=== PATIENT | female | born 1940 | race Caucasian/White ===

== ENCOUNTER → 2018-04-03 | Outpatient (CLI) | payer OTHER | LOC: HYPER 03-29 16:07 | DX: E11.621 Type 2 diabetes mellitus with foot ulcer (principal); I83.014 Varicose veins of right lower extremity with ulcer of heel and midfoot; L97.412 Non-pressure chronic ulcer of right heel and midfoot with fat layer exposed; L84 Corns and callosities; E11.36 Type 2 diabetes mellitus with diabetic cataract; E11.69 Type 2 diabetes mellitus with other specified complication; M86.671 Other chronic osteomyelitis, right ankle and foot; E11.22 Type 2 diabetes mellitus with diabetic chronic kidney disease; I12.9 Hypertensive chronic kidney disease with stage 1 through stage 4 chronic kidney disease, or unspecified chronic kidney disease; N18.3 Chronic kidney disease, stage 3 (moderate); E78.5 Hyperlipidemia, unspecified; D50.9 Iron deficiency anemia, unspecified; D49.9 Neoplasm of unspecified behavior of unspecified site; I87.2 Venous insufficiency (chronic) (peripheral); K76.0 Fatty (change of) liver, not elsewhere classified; M15.9 Polyosteoarthritis, unspecified; M47.896 Other spondylosis, lumbar region; M72.2 Plantar fascial fibromatosis; M41.20 Other idiopathic scoliosis, site unspecified; F03.90 Unspecified dementia, unspecified severity, without behavioral disturbance, psychotic disturbance, mood disturbance, and anxiety; F41.9 Anxiety disorder, unspecified; F32.9 Major depressive disorder, single episode, unspecified; Z79.84 Long term (current) use of oral hypoglycemic drugs; Z86.73 Personal history of transient ischemic attack (TIA), and cerebral infarction without residual deficits; Z90.710 Acquired absence of both cervix and uterus; Z90.49 Acquired absence of other specified parts of digestive tract ==

== ENCOUNTER → 2018-04-21 | Outpatient (CLI) | payer OTHER | LOC: HYPER 08:28 | DX: E11.621 Type 2 diabetes mellitus with foot ulcer (principal); I83.014 Varicose veins of right lower extremity with ulcer of heel and midfoot; L97.412 Non-pressure chronic ulcer of right heel and midfoot with fat layer exposed; L84 Corns and callosities; I89.0 Lymphedema, not elsewhere classified; E11.69 Type 2 diabetes mellitus with other specified complication; M86.671 Other chronic osteomyelitis, right ankle and foot; E11.36 Type 2 diabetes mellitus with diabetic cataract; E11.22 Type 2 diabetes mellitus with diabetic chronic kidney disease; I12.9 Hypertensive chronic kidney disease with stage 1 through stage 4 chronic kidney disease, or unspecified chronic kidney disease; N18.3 Chronic kidney disease, stage 3 (moderate); E78.5 Hyperlipidemia, unspecified; D50.9 Iron deficiency anemia, unspecified; D49.9 Neoplasm of unspecified behavior of unspecified site; K76.0 Fatty (change of) liver, not elsewhere classified; M72.2 Plantar fascial fibromatosis; M15.9 Polyosteoarthritis, unspecified; M41.20 Other idiopathic scoliosis, site unspecified; M47.896 Other spondylosis, lumbar region; F03.90 Unspecified dementia, unspecified severity, without behavioral disturbance, psychotic disturbance, mood disturbance, and anxiety; F32.9 Major depressive disorder, single episode, unspecified; F41.9 Anxiety disorder, unspecified; Z86.73 Personal history of transient ischemic attack (TIA), and cerebral infarction without residual deficits; Z79.84 Long term (current) use of oral hypoglycemic drugs ==

== ENCOUNTER → 2018-04-28 | Outpatient (CLI) | payer OTHER ==
[~2018-04-28] MED LIST: ASPIRIN81 M2 PO; BENICAR40 MG PO; BYSTOLIC20 MG PO; CRESTOR10 MG PO; HYDROCODON-ACE1 EAC8 PO; METFORMIN HCL500 MG PO; XANAX 0.5 MG0.5 MG PO
--- NOTE | ~2018-04-28 | HC ---
[place] [address] CONSULTATION Name: RUT GUTHRIE Room #: REG JANICE Benedict#: [id number] Admission: 04/28/18 ������������������ Attend Phys: Abdifatah Hanson MD Discharge: ������������������ Date of : 40 Report #: [id number] THIS REPORT FOR: //name// CC: Xavier Ramirez DATE OF SERVICE: 04/28/2018 INFECTIOUS DISEASES CONSULTATION REASON FOR CONSULTATION: I was asked to evaluate concerning right heel wound infection, possible osteomyelitis. HISTORY OF PRESENT ILLNESS: The patient is a 78-year-old, with underlying history of venous stasis disease, who has had recurrent cellulitis to her lower extremities, developed a heel wound approximately 6 months ago. No specific trauma identified. The patient and her daughter were interviewed and they both feel that it was most likely related to some shoe wear. She has been followed up in the wound care clinic at [facility]. She has had imaging studies including bone scan, CT scan, I do not have those results. The patient and daughter were unaware of specific osteomyelitis diagnosis. She had been on a month of ceftriaxone most recently from 03/15/2018 to 04/21/2018. While on this treatment, she has noticed no significant improvement in her wound. She presents now for further evaluation. Antibiotics were discontinued in anticipation of bone biopsy. She has had no worsening of her skin or soft tissues. There has been small to moderate amount of drainage from her wound. No fever, chills or sweats. Moderate amount of pain over the plantar heel area. She has diabetes. She is a nonsmoker. She is on diuretics. She has been using compression stockings, but has not been elevating much. She has not been very good at offloading the heel. No history of peripheral neuropathy and she reports that her arterial studies have been unremarkable. ALLERGIES: CARDIZEM, AMLODIPINE, ADHESIVE TAPE. MEDICATIONS: Included alprazolam, metformin, Crestor, Bystolic, verapamil, Lasix, magnesium oxide, hydrocodone, aspirin. PAST MEDICAL HISTORY: Obesity, venous stasis disease, diabetes. Denies any cardiovascular issues other than hypertension. FAMILY HISTORY: Noncontributory. SOCIAL HISTORY: Nonsmoker, no significant alcohol intake. REVIEW OF SYSTEMS: Denies any headache, neurologic issues, psychiatric issues. [address] [address] CONSULTATION Name: RUT GUTHRIE Room #: [facility].#: [id number] Admission: 04/28/18 ������������������ Attend Phys: Abdifatah Hanson MD Discharge: ������������������ Date of : 40 Report #: [id number] She has had no hematologic or lymph issues. Denies any pulmonary, GI or complaints. A full 10-point review was negative other than what is described above. PHYSICAL EXAMINATION: VITAL SIGNS: She is afebrile, hemodynamically stable. GENERAL: She is alert, cooperative and pleasant. She was ambulatory. Obese. SKIN: With venous stasis dermatitis changes to both lower extremities below the knee. No ulcerations. She had an ulcer over the plantar aspect of her right heel with granulation tissue at the base. Could not palpate any bone. There was no surrounding cellulitis. The area was tender to palpation. No other rashes or decubiti noted. No palpable adenopathy. HEENT: Eyes without scleral icterus or conjunctivitis. Mouth with partial dentures. No oral mucosal lesions. NECK: Supple with no thyromegaly or mass. LUNGS: Clear to auscultation. HEART: Regular without murmur, gallop or rub. ABDOMEN: Soft and nontender with no hepatosplenomegaly or mass. GENITORECTAL: Examination not performed. NEUROLOGIC: Cranial nerves were intact. Strength in her upper and lower extremities was normal. Sensation in upper and lower extremities was normal. Mood was normal. LABORATORY STUDIES: Outpatient bone scan and CT scan were not available. Outpatient x-ray was not available. From 04/21/2018, creatinine was 0.5, alkaline phosphatase 234, AST 74, ALT 25. Hemoglobin A1c was 5.6. Glucose 133. Sedimentation rate 31. C-reactive protein 7.4. Hemoglobin 10.5, WBC 4.6, platelet count was 230,000. IMPRESSION: A 78-year-old with chronic venous stasis disease, obesity with a nonhealing wound to her right plantar heel. I am concerned about a component of osteomyelitis given the duration of this wound. She has not responded to a month of antibiotic therapy. I would suspect that there also may be some issues with ongoing pressure to the heel. Obesity, diabetes, hypertension, chronic venous stasis disease. RECOMMENDATIONS: We will maintain off antibiotic therapy at this point. The patient has been seen by podiatry who anticipates doing a bone biopsy hopefully next week. I would like the patient off antibiotics for approximately 2 weeks before her biopsy. I discussed the case with the patient and her daughter that if there is any change in her condition with increased erythema to the leg or increased pain that she would contact me for further instruction. In addition, I would like to increase her edema control with leg elevation and compression. She will continue with topical therapies for her venous stasis disease. She [address] [address] CONSULTATION Name: RUT GUTHRIE Room #: REG JANICE Cordero.#: [id number] Admission: 04/28/18 ������������������ Attend Phys: Abdifatah Hanson MD Discharge: ������������������ Date of : 40 Report #: [id number] will continue with her localized wound care. I would like the patient to offload the right heel exclusively. We will reevaluate in 1 week. ��������������������������������������������� ���������������������������������������� By: ��������������������������������������������� 1253 0437 Xavier Grant MD /nnamdi
--- NOTE | 2018-04-28 12:00 | NUR ---
PT IN THE INFUSION CLINIC EARLIER TODAY FOR 1ST CONSULTATIVE VISIT WITH DR. BAKER. HOWEVER, D/T [facility], DR. BAKER WAS DELAYED SO PT TAKEN TO THE WOUND CLINIC FOR HER VISIT WITH DR. FORMAN AND DR. BAKRE DID GO TO SEE HER WHILE SHE WAS WITH THEM. SHE HAS BEEN SCHEDULED TO RETURN AGAIN 05/08 FOR VISIT HERE WITH DR. BAKER THEN WITH DR. FORMAN TO FOLLOW.
== END ==
LOC: HYPER 02:45
DX: E11.621 Type 2 diabetes mellitus with foot ulcer (principal); I83.014 Varicose veins of right lower extremity with ulcer of heel and midfoot; L97.412 Non-pressure chronic ulcer of right heel and midfoot with fat layer exposed; I89.0 Lymphedema, not elsewhere classified; L84 Corns and callosities; E11.69 Type 2 diabetes mellitus with other specified complication; M86.671 Other chronic osteomyelitis, right ankle and foot; E11.22 Type 2 diabetes mellitus with diabetic chronic kidney disease; I12.9 Hypertensive chronic kidney disease with stage 1 through stage 4 chronic kidney disease, or unspecified chronic kidney disease; N18.3 Chronic kidney disease, stage 3 (moderate); E11.36 Type 2 diabetes mellitus with diabetic cataract; E78.5 Hyperlipidemia, unspecified; D50.9 Iron deficiency anemia, unspecified; D49.9 Neoplasm of unspecified behavior of unspecified site; K76.0 Fatty (change of) liver, not elsewhere classified; M15.9 Polyosteoarthritis, unspecified; M72.2 Plantar fascial fibromatosis; M41.20 Other idiopathic scoliosis, site unspecified; M47.896 Other spondylosis, lumbar region; F03.90 Unspecified dementia, unspecified severity, without behavioral disturbance, psychotic disturbance, mood disturbance, and anxiety; F32.9 Major depressive disorder, single episode, unspecified; F41.9 Anxiety disorder, unspecified; Z86.73 Personal history of transient ischemic attack (TIA), and cerebral infarction without residual deficits; Z79.84 Long term (current) use of oral hypoglycemic drugs
CPT/HCPCS: 91016

== ENCOUNTER → 2018-05-08 | Outpatient (CLI) | payer OTHER | LOC: HYPER 06:50 | DX: E11.621 Type 2 diabetes mellitus with foot ulcer (principal); I83.014 Varicose veins of right lower extremity with ulcer of heel and midfoot; L97.412 Non-pressure chronic ulcer of right heel and midfoot with fat layer exposed; E11.69 Type 2 diabetes mellitus with other specified complication; M86.671 Other chronic osteomyelitis, right ankle and foot; E11.22 Type 2 diabetes mellitus with diabetic chronic kidney disease; I12.9 Hypertensive chronic kidney disease with stage 1 through stage 4 chronic kidney disease, or unspecified chronic kidney disease; N18.3 Chronic kidney disease, stage 3 (moderate); E11.36 Type 2 diabetes mellitus with diabetic cataract; E78.5 Hyperlipidemia, unspecified; D50.9 Iron deficiency anemia, unspecified; D49.9 Neoplasm of unspecified behavior of unspecified site; I89.0 Lymphedema, not elsewhere classified; I87.2 Venous insufficiency (chronic) (peripheral); K76.0 Fatty (change of) liver, not elsewhere classified; M72.2 Plantar fascial fibromatosis; M15.9 Polyosteoarthritis, unspecified; M41.20 Other idiopathic scoliosis, site unspecified; M47.896 Other spondylosis, lumbar region; F03.90 Unspecified dementia, unspecified severity, without behavioral disturbance, psychotic disturbance, mood disturbance, and anxiety; F32.9 Major depressive disorder, single episode, unspecified; F41.9 Anxiety disorder, unspecified; Z86.73 Personal history of transient ischemic attack (TIA), and cerebral infarction without residual deficits; Z79.84 Long term (current) use of oral hypoglycemic drugs ==

== ENCOUNTER → 2018-05-08 | Outpatient (CLI) | payer OTHER ==
--- NOTE | ~2018-05-08 | HC ---
[facility] [place] [address] CONSULTATION Name: RUT GUTHRIE Room #: REG [facility]#: [id number] Admission: 05/08/18 ������������������ Attend Phys: Xavier Grant MD Discharge: ������������������ Date of : 40 Report #: [id number] THIS REPORT FOR: //name// CC: Xavier Ramirez DATE OF SERVICE: 05/08/2018 REASON FOR CONSULTATION: Evaluate right heel wound and possible osteomyelitis. HISTORY OF PRESENT ILLNESS: Off antibiotics now for 1 week. No increased drainage. No increased pain or swelling. The patient has been offloading her foot as much as possible. She has been elevating. No fever, chills or sweats. REVIEW OF SYSTEMS: No cardiopulmonary, GI or issues. PHYSICAL EXAMINATION: VITAL SIGNS: Afebrile and hemodynamically stable. GENERAL: Alert and cooperative. Obese. EXTREMITIES: Left upper extremity PICC without drainage or erythema. Right lower extremity lymphedema persists below the knee. She has erythema and some desquamation of skin. 3+ woody edema. Moderate erythema. The right foot is without cellulitis. She has a small wound, which tunnels to the plantar left heel. Small amount of serous drainage. Moderate tenderness. No fluctuance. Pulses palpable in the foot. IMPRESSION: 1. Right plantar heel nonhealing wound with concern for underlying osteomyelitis. 2. Chronic lymphedema. 3. Obesity. 4. Diabetes. RECOMMENDATION: 1. We will continue off antibiotics at this point pending biopsy hopefully this coming week. 2. Continue offloading. 3. Continue leg elevation and compression. 4. Add topical triamcinolone b.i.d. to help decrease the venous stasis dermatitis. 5. Follow up in 1 week. 6. Obtain CBC, CMP, sedimentation rate today and we will follow. The patient [facility] [address] [place] [address] CONSULTATION Name: RUT GUTHRIE Room #: REG JANICE Benedict#: [id number] Admission: 05/08/18 ������������������ Attend Phys: Xavier Grant MD Discharge: ������������������ Date of : 40 Report #: [id number] will contact me if any worsening in her condition as we continue the workup. 7. The patient will be referred to lymphedema clinic. ��������������������������������������������� ���������������������������������������� By: ��������������������������������������������� 1008 [id number] Xavier Grant MD /nt
[2018-05-08 13:43] LABS: HEMATOCRIT 33.2 % (37.0-47.0); HEMOGLOBIN 10.8 gm/dL (12.0-15.0); MCH 27.5 pg (26.0-34.0); MCHC 32.6 g/dL (28.0-37.0); MCV 84.5 fL (80.0-100.0); RBC 3.93 mil/uL (4.20-5.00); WBC 6.6 thou/uL (4.0-11.0)
[2018-05-08 13:46] LABS: CALCIUM 9.1 mg/dL (8.5-10.1); CREATININE 0.6 mg/dL (0.6-1.0); POTASSIUM 3.9 mmol/L (3.5-5.1)
[2018-05-08 13:48] VITALS: BP 147/43
--- NOTE | 2018-05-08 13:50 | NUR ---
PT HERE TO BE SEEN BY DR. BAKER. DRESSING REMOVED FROM RIGHT FOOT. LABS DRAWN PER PICC LINE AND FLUSHED WITH NORMAL SALINE. PT TO WOUND CARE FOR NEXT APPOINTMENT
== END ==
LOC: OPONC 00:40
PROVIDERS: Specialist
DX: E11.69 Type 2 diabetes mellitus with other specified complication (principal); M86.671 Other chronic osteomyelitis, right ankle and foot; S91.301D Unspecified open wound, right foot, subsequent encounter; I89.0 Lymphedema, not elsewhere classified; E11.9 Type 2 diabetes mellitus without complications; E66.9 Obesity, unspecified; X58.XXXD Exposure to other specified factors, subsequent encounter
CPT/HCPCS: 91023

== ENCOUNTER → 2018-05-24 | Outpatient (CLI) | payer OTHER ==
--- NOTE | ~2018-05-24 | HC ---
[facility] [place] [address] CONSULTATION Name: RUT GUTHRIE Room #: REG JANICE Marichuy#: [id number] Admission: 05/24/18 ������������������ Attend Phys: Abdifatah Hanson MD Discharge: ������������������ Date of : 40 Report #: [id number] THIS REPORT FOR: //name// CC: Xaveir Ramirez DATE OF SERVICE: 05/24/2018 INFECTIOUS DISEASE NOTE REASON FOR CONSULTATION: Evaluate right heel wound with possible osteomyelitis. HISTORY OF PRESENT ILLNESS: The patient remains off antibiotics for the past 3 weeks. There has been no increased drainage. She notes continued lower extremity edema. She did not follow up with my recommendations on 05/08/2018 to see lymphedema clinic or to follow up in 1 week. She does have a left upper extremity PICC in place, which is being flushed on a daily basis. Home health has been managing her IV site. No fever, chills or sweats. She did see wound care service today, which revealed improvement in her left heel wound size and depth. There was no report of increased erythema. The patient has been working on offloading the foot as much as possible. It appears that the venous stasis dermatitis changes has also improved as the patient continues with triamcinolone cream to the leg. REVIEW OF SYSTEMS: No cardiopulmonary, GI or complaints. PHYSICAL EXAMINATION: GENERAL: She was afebrile and hemodynamically stable. Alert and cooperative. EXTREMITIES: Left upper extremity PICC site was unremarkable with no drainage. Right lower extremity had a compression wrap in place from the wound care center from toes to her proximal calf. Toes were warm with no significant edema. Good capillary refill. Normal motion. Still had evidence for 1+ peripheral edema involving the thigh. Could not further assess her leg due to her dressings and compression wraps. IMPRESSION AND PLAN: 1. Right plantar nonhealing wound that previously had concern for underlying osteomyelitis. She remains off antibiotics now for the past 3 weeks with no evidence of worsening, still with significant improvement. 2. Chronic lymphedema. 3. Obesity. 4. Diabetes. RECOMMENDATIONS: The patient will continue off antibiotics. We will check [address] [address] CONSULTATION Name: RUT GUTHRIE Room #: REG JANICE Benedict#: [id number] Admission: 05/24/18 ������������������ Attend Phys: Abdifatah Hanson MD Discharge: ������������������ Date of : 40 Report #: [id number] laboratory studies including CBC, ESR and CRP. I again reinforced need for lymphedema evaluation to control her edema. Continue with offloading. If her inflammatory markers are reasonable, we will have her PICC removed and have the patient continue offloading and follow up in the wound care center. Nursing services will advise me to her lab results when available and will proceed from there. ��������������������������������������������� ���������������������������������������� By: ��������������������������������������������� 1152 1 Xavier Grant MD /nt
[2018-05-24 12:00] VITALS: BP 153/71
--- NOTE | 2018-05-24 12:15 | NUR ---
PT HERE TO SEE DR. KARUNA BAKER IN FOLLOW UP. ARRIVED FROM THE WOUND CLINIC WHERE SHE SAW DR. FORMAN AND NEW DRESSING WAS PLACED. RIGHT FOOT TO KNEE WRAPPED IN MATILDE WRAP, TOES WARM AND PINK. MORE EDEMA NOTED RIGHT LEG THAN LEFT. PT HAS NOT YET MADE THE APPT WITH THE LYMPHEDEMA CLINIC. COULD NOT OFFER A REASON, STATES JUST HAS NOT DONE IT YET. STATES SHE DOES HAS A COMPRESSION MACHINE FOR LYMPHEDEMA IN THE HOME. OFFERED TO MAKE THE APPT FOR THE PT BUT SHE DECLINED STATING SHE WOULD NEED TO CHECK HER SCHEDULE AT HOME FIRST. LABS DRAWN FROM PICC LINE. DRESSING CHANGE WAS DONE 05/18, PT STATES BY THE [facility] NURSE. PT IS NOT ON IV ANTIBIOTICS. PT AND DTR REPORT THAT LEG IS LOOKING MUCH BETTER. DENIES ANY FEVER/CHILLS. DR. BAKER WILL AWAIT LAB RESULTS PRIOR TO DECISION TO REMOVE PICC. NO F/U APPT SCHEDULED AT THIS TIME WITH DR. BAKER BUT PT INSTRUCTED TO CALL IF THERE IS ANY CHANGE OR WORSENING IN APPEARANCE OF LEG THEN HE WILL PLAN TO SEE HER AGAIN. MEANWHILE PT IS SETTING UP APPT TO SEE DR. FORMAN AGAIN IN 2 WEEKS. PT AND DTR STATE THAT THE [facility] NURSE CAN REMOVE THE PICC LINE IF WE GET AN ORDER. THEIR PHONE NUMBER IS [phone]. FAX [phone]. DISMISSED IN STABLE CONDITION WITH DTR.
[2018-05-24 12:30] LABS: HEMATOCRIT 31.8 % (37.0-47.0); HEMOGLOBIN 10.5 gm/dL (12.0-15.0); MCH 27.7 pg (26.0-34.0); MCV 83.9 fL (80.0-100.0); RBC 3.79 mil/uL (4.20-5.00); RDW 14.5 % (10.5-14.5)
--- NOTE | 2018-05-24 15:57 | NUR ---
DR. BAKER REVIEWED LABS AND GAVE ORDER TO REMOVE PICC LINE. NOTIFIED PT AND FLORIN AT [facility] AND ORDER FAXED TO [facility].
== END ==
LOC: OPONC 05-15 01:43 → HYPER 05-15 01:43
PROVIDERS: Specialist
DX: E11.621 Type 2 diabetes mellitus with foot ulcer (principal); L97.412 Non-pressure chronic ulcer of right heel and midfoot with fat layer exposed; E11.69 Type 2 diabetes mellitus with other specified complication; M86.671 Other chronic osteomyelitis, right ankle and foot; E11.22 Type 2 diabetes mellitus with diabetic chronic kidney disease; N18.3 Chronic kidney disease, stage 3 (moderate); E11.36 Type 2 diabetes mellitus with diabetic cataract; I89.0 Lymphedema, not elsewhere classified; M72.2 Plantar fascial fibromatosis; M15.9 Polyosteoarthritis, unspecified; M25.562 Pain in left knee; I87.2 Venous insufficiency (chronic) (peripheral); D50.9 Iron deficiency anemia, unspecified; K76.0 Fatty (change of) liver, not elsewhere classified; D49.9 Neoplasm of unspecified behavior of unspecified site; M41.20 Other idiopathic scoliosis, site unspecified; M47.896 Other spondylosis, lumbar region; F41.9 Anxiety disorder, unspecified; E78.5 Hyperlipidemia, unspecified; B35.1 Tinea unguium; F03.90 Unspecified dementia, unspecified severity, without behavioral disturbance, psychotic disturbance, mood disturbance, and anxiety; F32.9 Major depressive disorder, single episode, unspecified; Z86.73 Personal history of transient ischemic attack (TIA), and cerebral infarction without residual deficits; Z79.84 Long term (current) use of oral hypoglycemic drugs

== ENCOUNTER → 2018-06-09 | Outpatient (CLI) | payer OTHER | LOC: HYPER 06-07 16:09 | DX: E11.621 Type 2 diabetes mellitus with foot ulcer (principal); I83.014 Varicose veins of right lower extremity with ulcer of heel and midfoot; L97.412 Non-pressure chronic ulcer of right heel and midfoot with fat layer exposed; L84 Corns and callosities; I89.0 Lymphedema, not elsewhere classified; E11.69 Type 2 diabetes mellitus with other specified complication; M86.671 Other chronic osteomyelitis, right ankle and foot; E11.22 Type 2 diabetes mellitus with diabetic chronic kidney disease; I12.0 Hypertensive chronic kidney disease with stage 5 chronic kidney disease or end stage renal disease; N18.3 Chronic kidney disease, stage 3 (moderate); D50.9 Iron deficiency anemia, unspecified; D49.9 Neoplasm of unspecified behavior of unspecified site; E11.36 Type 2 diabetes mellitus with diabetic cataract; E78.5 Hyperlipidemia, unspecified; K76.0 Fatty (change of) liver, not elsewhere classified; M15.9 Polyosteoarthritis, unspecified; M72.2 Plantar fascial fibromatosis; M41.20 Other idiopathic scoliosis, site unspecified; M47.896 Other spondylosis, lumbar region; F03.90 Unspecified dementia, unspecified severity, without behavioral disturbance, psychotic disturbance, mood disturbance, and anxiety; F32.9 Major depressive disorder, single episode, unspecified; F41.9 Anxiety disorder, unspecified; Z86.73 Personal history of transient ischemic attack (TIA), and cerebral infarction without residual deficits; Z79.84 Long term (current) use of oral hypoglycemic drugs ==

== ENCOUNTER → 2018-07-17 | Outpatient (CLI) | payer OTHER | LOC: HYPER 06-30 12:09 | DX: E11.621 Type 2 diabetes mellitus with foot ulcer (principal); I83.014 Varicose veins of right lower extremity with ulcer of heel and midfoot; L97.412 Non-pressure chronic ulcer of right heel and midfoot with fat layer exposed; L84 Corns and callosities; E11.22 Type 2 diabetes mellitus with diabetic chronic kidney disease; N18.3 Chronic kidney disease, stage 3 (moderate); E11.36 Type 2 diabetes mellitus with diabetic cataract; E11.69 Type 2 diabetes mellitus with other specified complication; M86.671 Other chronic osteomyelitis, right ankle and foot; I89.0 Lymphedema, not elsewhere classified; M72.2 Plantar fascial fibromatosis; D49.9 Neoplasm of unspecified behavior of unspecified site; D50.9 Iron deficiency anemia, unspecified; E78.5 Hyperlipidemia, unspecified; I10 Essential (primary) hypertension; K76.0 Fatty (change of) liver, not elsewhere classified; M41.20 Other idiopathic scoliosis, site unspecified; M47.896 Other spondylosis, lumbar region; M15.9 Polyosteoarthritis, unspecified; F03.90 Unspecified dementia, unspecified severity, without behavioral disturbance, psychotic disturbance, mood disturbance, and anxiety; F32.9 Major depressive disorder, single episode, unspecified; F41.9 Anxiety disorder, unspecified; Z86.73 Personal history of transient ischemic attack (TIA), and cerebral infarction without residual deficits; Z79.84 Long term (current) use of oral hypoglycemic drugs ==

== ENCOUNTER → 2018-07-31 | Outpatient (CLI) | payer OTHER | LOC: HYPER 06:36 | DX: E11.621 Type 2 diabetes mellitus with foot ulcer (principal); L97.412 Non-pressure chronic ulcer of right heel and midfoot with fat layer exposed; I89.0 Lymphedema, not elsewhere classified; I87.2 Venous insufficiency (chronic) (peripheral); E11.69 Type 2 diabetes mellitus with other specified complication; M86.671 Other chronic osteomyelitis, right ankle and foot; L03.115 Cellulitis of right lower limb; E11.22 Type 2 diabetes mellitus with diabetic chronic kidney disease; I12.9 Hypertensive chronic kidney disease with stage 1 through stage 4 chronic kidney disease, or unspecified chronic kidney disease; N18.3 Chronic kidney disease, stage 3 (moderate); E11.36 Type 2 diabetes mellitus with diabetic cataract; K76.0 Fatty (change of) liver, not elsewhere classified; D49.9 Neoplasm of unspecified behavior of unspecified site; M41.20 Other idiopathic scoliosis, site unspecified; M47.896 Other spondylosis, lumbar region; L84 Corns and callosities; E78.5 Hyperlipidemia, unspecified; D50.9 Iron deficiency anemia, unspecified; B35.1 Tinea unguium; M72.2 Plantar fascial fibromatosis; M15.9 Polyosteoarthritis, unspecified; M25.562 Pain in left knee; F03.90 Unspecified dementia, unspecified severity, without behavioral disturbance, psychotic disturbance, mood disturbance, and anxiety; F41.9 Anxiety disorder, unspecified; F32.9 Major depressive disorder, single episode, unspecified; Z86.73 Personal history of transient ischemic attack (TIA), and cerebral infarction without residual deficits; Z79.84 Long term (current) use of oral hypoglycemic drugs ==

== ENCOUNTER → 2018-11-22 | Outpatient (CLI) | payer OTHER | LOC: HYPER 06:54 | DX: E11.621 Type 2 diabetes mellitus with foot ulcer (principal); L97.522 Non-pressure chronic ulcer of other part of left foot with fat layer exposed; I87.2 Venous insufficiency (chronic) (peripheral); E11.22 Type 2 diabetes mellitus with diabetic chronic kidney disease; I12.9 Hypertensive chronic kidney disease with stage 1 through stage 4 chronic kidney disease, or unspecified chronic kidney disease; N18.3 Chronic kidney disease, stage 3 (moderate); E11.36 Type 2 diabetes mellitus with diabetic cataract; E11.69 Type 2 diabetes mellitus with other specified complication; M86.8X8 Other osteomyelitis, other site; M15.9 Polyosteoarthritis, unspecified; M47.896 Other spondylosis, lumbar region; I89.0 Lymphedema, not elsewhere classified; L03.115 Cellulitis of right lower limb; M72.2 Plantar fascial fibromatosis; L84 Corns and callosities; E78.5 Hyperlipidemia, unspecified; B35.1 Tinea unguium; F03.90 Unspecified dementia, unspecified severity, without behavioral disturbance, psychotic disturbance, mood disturbance, and anxiety; F41.9 Anxiety disorder, unspecified; F32.9 Major depressive disorder, single episode, unspecified; Z86.73 Personal history of transient ischemic attack (TIA), and cerebral infarction without residual deficits ==

== ENCOUNTER → 2019-02-05 | Outpatient (CLI) | payer OTHER | LOC: HYPER 12-06 06:48 | DX: E11.621 Type 2 diabetes mellitus with foot ulcer (principal); L97.521 Non-pressure chronic ulcer of other part of left foot limited to breakdown of skin; I89.0 Lymphedema, not elsewhere classified; I87.2 Venous insufficiency (chronic) (peripheral); E11.22 Type 2 diabetes mellitus with diabetic chronic kidney disease; N18.3 Chronic kidney disease, stage 3 (moderate); E11.69 Type 2 diabetes mellitus with other specified complication; M86.8X8 Other osteomyelitis, other site; E11.36 Type 2 diabetes mellitus with diabetic cataract; L84 Corns and callosities; L03.115 Cellulitis of right lower limb; M72.2 Plantar fascial fibromatosis; M15.9 Polyosteoarthritis, unspecified; M47.896 Other spondylosis, lumbar region; E78.5 Hyperlipidemia, unspecified; B35.1 Tinea unguium; F32.9 Major depressive disorder, single episode, unspecified; F03.90 Unspecified dementia, unspecified severity, without behavioral disturbance, psychotic disturbance, mood disturbance, and anxiety; Z86.73 Personal history of transient ischemic attack (TIA), and cerebral infarction without residual deficits ==

== ENCOUNTER → 2019-03-21 | Outpatient (CLI) | payer OTHER | LOC: HYPER 10:33 | DX: E11.622 Type 2 diabetes mellitus with other skin ulcer (principal); L97.821 Non-pressure chronic ulcer of other part of left lower leg limited to breakdown of skin; L97.811 Non-pressure chronic ulcer of other part of right lower leg limited to breakdown of skin; E11.621 Type 2 diabetes mellitus with foot ulcer; L97.521 Non-pressure chronic ulcer of other part of left foot limited to breakdown of skin; L97.511 Non-pressure chronic ulcer of other part of right foot limited to breakdown of skin; L84 Corns and callosities; I87.2 Venous insufficiency (chronic) (peripheral); I89.0 Lymphedema, not elsewhere classified; L03.115 Cellulitis of right lower limb; M72.2 Plantar fascial fibromatosis; E11.22 Type 2 diabetes mellitus with diabetic chronic kidney disease; N18.3 Chronic kidney disease, stage 3 (moderate); M15.9 Polyosteoarthritis, unspecified; M47.896 Other spondylosis, lumbar region; I12.9 Hypertensive chronic kidney disease with stage 1 through stage 4 chronic kidney disease, or unspecified chronic kidney disease; E11.36 Type 2 diabetes mellitus with diabetic cataract; E11.69 Type 2 diabetes mellitus with other specified complication; M86.8X8 Other osteomyelitis, other site; F41.9 Anxiety disorder, unspecified; F03.90 Unspecified dementia, unspecified severity, without behavioral disturbance, psychotic disturbance, mood disturbance, and anxiety ==

== ENCOUNTER → 2019-04-02 | Outpatient (CLI) | payer OTHER | LOC: HYPER 10:12 | DX: E11.621 Type 2 diabetes mellitus with foot ulcer (principal); L97.521 Non-pressure chronic ulcer of other part of left foot limited to breakdown of skin; E11.622 Type 2 diabetes mellitus with other skin ulcer; L97.821 Non-pressure chronic ulcer of other part of left lower leg limited to breakdown of skin; L97.811 Non-pressure chronic ulcer of other part of right lower leg limited to breakdown of skin; I87.2 Venous insufficiency (chronic) (peripheral); I89.0 Lymphedema, not elsewhere classified; L84 Corns and callosities; M72.2 Plantar fascial fibromatosis; N18.3 Chronic kidney disease, stage 3 (moderate); M15.9 Polyosteoarthritis, unspecified; M47.896 Other spondylosis, lumbar region; E11.36 Type 2 diabetes mellitus with diabetic cataract; E78.5 Hyperlipidemia, unspecified; I10 Essential (primary) hypertension; E11.69 Type 2 diabetes mellitus with other specified complication; M86.9 Osteomyelitis, unspecified; F32.9 Major depressive disorder, single episode, unspecified; Z86.73 Personal history of transient ischemic attack (TIA), and cerebral infarction without residual deficits ==

== ENCOUNTER → 2019-04-09 | Outpatient (CLI) | payer OTHER | LOC: HYPER 10:08 | DX: E11.622 Type 2 diabetes mellitus with other skin ulcer (principal); L97.821 Non-pressure chronic ulcer of other part of left lower leg limited to breakdown of skin; L97.811 Non-pressure chronic ulcer of other part of right lower leg limited to breakdown of skin; I87.2 Venous insufficiency (chronic) (peripheral); I89.0 Lymphedema, not elsewhere classified; M72.2 Plantar fascial fibromatosis; E11.22 Type 2 diabetes mellitus with diabetic chronic kidney disease; I12.9 Hypertensive chronic kidney disease with stage 1 through stage 4 chronic kidney disease, or unspecified chronic kidney disease; N18.3 Chronic kidney disease, stage 3 (moderate); M15.9 Polyosteoarthritis, unspecified; M47.896 Other spondylosis, lumbar region; L84 Corns and callosities; F41.9 Anxiety disorder, unspecified; E11.36 Type 2 diabetes mellitus with diabetic cataract; E78.5 Hyperlipidemia, unspecified; E11.69 Type 2 diabetes mellitus with other specified complication; M86.9 Osteomyelitis, unspecified; F03.90 Unspecified dementia, unspecified severity, without behavioral disturbance, psychotic disturbance, mood disturbance, and anxiety; F32.9 Major depressive disorder, single episode, unspecified; Z86.73 Personal history of transient ischemic attack (TIA), and cerebral infarction without residual deficits; Z79.84 Long term (current) use of oral hypoglycemic drugs; Z79.82 Long term (current) use of aspirin ==

== ENCOUNTER → 2019-04-16 | Outpatient (CLI) | payer OTHER | LOC: HYPER 10:42 | DX: E11.622 Type 2 diabetes mellitus with other skin ulcer (principal); L97.821 Non-pressure chronic ulcer of other part of left lower leg limited to breakdown of skin; L97.811 Non-pressure chronic ulcer of other part of right lower leg limited to breakdown of skin; E11.621 Type 2 diabetes mellitus with foot ulcer; L97.521 Non-pressure chronic ulcer of other part of left foot limited to breakdown of skin; I87.2 Venous insufficiency (chronic) (peripheral); I89.0 Lymphedema, not elsewhere classified; L84 Corns and callosities; M72.2 Plantar fascial fibromatosis; E11.22 Type 2 diabetes mellitus with diabetic chronic kidney disease; I12.9 Hypertensive chronic kidney disease with stage 1 through stage 4 chronic kidney disease, or unspecified chronic kidney disease; N18.3 Chronic kidney disease, stage 3 (moderate); M15.9 Polyosteoarthritis, unspecified; M47.896 Other spondylosis, lumbar region; E11.36 Type 2 diabetes mellitus with diabetic cataract; E78.5 Hyperlipidemia, unspecified; E11.69 Type 2 diabetes mellitus with other specified complication; M86.9 Osteomyelitis, unspecified; F03.90 Unspecified dementia, unspecified severity, without behavioral disturbance, psychotic disturbance, mood disturbance, and anxiety; F32.9 Major depressive disorder, single episode, unspecified; Z86.73 Personal history of transient ischemic attack (TIA), and cerebral infarction without residual deficits; Z79.84 Long term (current) use of oral hypoglycemic drugs; Z79.82 Long term (current) use of aspirin ==

== ENCOUNTER → 2019-05-23 | Outpatient (CLI) | payer OTHER | LOC: HYPER 14:06 | DX: E11.622 Type 2 diabetes mellitus with other skin ulcer (principal); L97.222 Non-pressure chronic ulcer of left calf with fat layer exposed; L97.811 Non-pressure chronic ulcer of other part of right lower leg limited to breakdown of skin; E11.621 Type 2 diabetes mellitus with foot ulcer; L97.511 Non-pressure chronic ulcer of other part of right foot limited to breakdown of skin; I87.2 Venous insufficiency (chronic) (peripheral); I89.0 Lymphedema, not elsewhere classified; E11.36 Type 2 diabetes mellitus with diabetic cataract; E78.5 Hyperlipidemia, unspecified; I10 Essential (primary) hypertension; E11.69 Type 2 diabetes mellitus with other specified complication; M86.9 Osteomyelitis, unspecified; F41.9 Anxiety disorder, unspecified; F03.90 Unspecified dementia, unspecified severity, without behavioral disturbance, psychotic disturbance, mood disturbance, and anxiety; F32.9 Major depressive disorder, single episode, unspecified; Z86.73 Personal history of transient ischemic attack (TIA), and cerebral infarction without residual deficits; Z79.84 Long term (current) use of oral hypoglycemic drugs ==

== ENCOUNTER → 2019-05-31 | Outpatient (CLI) | payer OTHER | LOC: HYPER 08:38 | DX: E11.622 Type 2 diabetes mellitus with other skin ulcer (principal); L97.222 Non-pressure chronic ulcer of left calf with fat layer exposed; E11.69 Type 2 diabetes mellitus with other specified complication; M86.8X8 Other osteomyelitis, other site; E11.36 Type 2 diabetes mellitus with diabetic cataract; E78.5 Hyperlipidemia, unspecified; I89.0 Lymphedema, not elsewhere classified; I87.2 Venous insufficiency (chronic) (peripheral); I10 Essential (primary) hypertension; F03.90 Unspecified dementia, unspecified severity, without behavioral disturbance, psychotic disturbance, mood disturbance, and anxiety; F32.9 Major depressive disorder, single episode, unspecified; Z86.73 Personal history of transient ischemic attack (TIA), and cerebral infarction without residual deficits ==

== ENCOUNTER → 2019-06-06 | Outpatient (CLI) | payer OTHER | LOC: HYPER 13:46 | DX: E11.622 Type 2 diabetes mellitus with other skin ulcer (principal); L97.222 Non-pressure chronic ulcer of left calf with fat layer exposed; I89.0 Lymphedema, not elsewhere classified; E11.69 Type 2 diabetes mellitus with other specified complication; M86.8X8 Other osteomyelitis, other site; E11.36 Type 2 diabetes mellitus with diabetic cataract; E78.5 Hyperlipidemia, unspecified; R60.0 Localized edema; I87.2 Venous insufficiency (chronic) (peripheral); I10 Essential (primary) hypertension; F03.90 Unspecified dementia, unspecified severity, without behavioral disturbance, psychotic disturbance, mood disturbance, and anxiety; F32.9 Major depressive disorder, single episode, unspecified; F41.9 Anxiety disorder, unspecified; Z86.73 Personal history of transient ischemic attack (TIA), and cerebral infarction without residual deficits ==

== ENCOUNTER → 2019-06-15 | Outpatient (CLI) | payer OTHER | LOC: HYPER 09:53 | DX: E11.622 Type 2 diabetes mellitus with other skin ulcer (principal); L97.222 Non-pressure chronic ulcer of left calf with fat layer exposed; I89.0 Lymphedema, not elsewhere classified; I87.2 Venous insufficiency (chronic) (peripheral); I10 Essential (primary) hypertension; E11.69 Type 2 diabetes mellitus with other specified complication; M86.8X8 Other osteomyelitis, other site; E11.36 Type 2 diabetes mellitus with diabetic cataract; E78.5 Hyperlipidemia, unspecified; R60.0 Localized edema; F03.90 Unspecified dementia, unspecified severity, without behavioral disturbance, psychotic disturbance, mood disturbance, and anxiety; F32.9 Major depressive disorder, single episode, unspecified; F41.9 Anxiety disorder, unspecified; Z86.73 Personal history of transient ischemic attack (TIA), and cerebral infarction without residual deficits ==

== ENCOUNTER → 2019-06-21 | Outpatient (CLI) | payer OTHER | LOC: HYPER 09:53 | DX: E11.622 Type 2 diabetes mellitus with other skin ulcer (principal); L97.222 Non-pressure chronic ulcer of left calf with fat layer exposed; I89.0 Lymphedema, not elsewhere classified; I87.2 Venous insufficiency (chronic) (peripheral); E11.69 Type 2 diabetes mellitus with other specified complication; M86.8X8 Other osteomyelitis, other site; E11.36 Type 2 diabetes mellitus with diabetic cataract; E78.5 Hyperlipidemia, unspecified; R60.0 Localized edema; I10 Essential (primary) hypertension; F03.90 Unspecified dementia, unspecified severity, without behavioral disturbance, psychotic disturbance, mood disturbance, and anxiety; F32.9 Major depressive disorder, single episode, unspecified; Z86.73 Personal history of transient ischemic attack (TIA), and cerebral infarction without residual deficits ==

== ENCOUNTER → 2019-07-31 | Outpatient (CLI) | payer OTHER | LOC: HYPER 10:11 | DX: E11.621 Type 2 diabetes mellitus with foot ulcer (principal); L97.522 Non-pressure chronic ulcer of other part of left foot with fat layer exposed; E11.622 Type 2 diabetes mellitus with other skin ulcer; L97.222 Non-pressure chronic ulcer of left calf with fat layer exposed; L84 Corns and callosities; E11.69 Type 2 diabetes mellitus with other specified complication; M86.8X8 Other osteomyelitis, other site; E11.36 Type 2 diabetes mellitus with diabetic cataract; E78.5 Hyperlipidemia, unspecified; I89.0 Lymphedema, not elsewhere classified; I87.2 Venous insufficiency (chronic) (peripheral); R60.0 Localized edema; I10 Essential (primary) hypertension; F03.90 Unspecified dementia, unspecified severity, without behavioral disturbance, psychotic disturbance, mood disturbance, and anxiety; F32.9 Major depressive disorder, single episode, unspecified; F41.9 Anxiety disorder, unspecified; Z86.73 Personal history of transient ischemic attack (TIA), and cerebral infarction without residual deficits ==

== ENCOUNTER → 2019-08-07 | Outpatient (CLI) | payer OTHER | LOC: HYPER 13:30 | DX: E11.621 Type 2 diabetes mellitus with foot ulcer (principal); L97.422 Non-pressure chronic ulcer of left heel and midfoot with fat layer exposed; L84 Corns and callosities; I89.0 Lymphedema, not elsewhere classified; R60.0 Localized edema; E11.36 Type 2 diabetes mellitus with diabetic cataract; E11.69 Type 2 diabetes mellitus with other specified complication; M86.8X8 Other osteomyelitis, other site; E78.5 Hyperlipidemia, unspecified; I10 Essential (primary) hypertension; I87.2 Venous insufficiency (chronic) (peripheral); F41.9 Anxiety disorder, unspecified; F32.9 Major depressive disorder, single episode, unspecified; F03.90 Unspecified dementia, unspecified severity, without behavioral disturbance, psychotic disturbance, mood disturbance, and anxiety; Z86.73 Personal history of transient ischemic attack (TIA), and cerebral infarction without residual deficits ==

== ENCOUNTER → 2019-08-20 | Outpatient (CLI) | payer OTHER | LOC: HYPER 13:30 | PROVIDERS: ATTEND Emergency Medicine | DX: E11.621 Type 2 diabetes mellitus with foot ulcer (principal); L97.522 Non-pressure chronic ulcer of other part of left foot with fat layer exposed; L84 Corns and callosities; E11.69 Type 2 diabetes mellitus with other specified complication; M86.8X8 Other osteomyelitis, other site; E11.36 Type 2 diabetes mellitus with diabetic cataract; E78.5 Hyperlipidemia, unspecified; I89.0 Lymphedema, not elsewhere classified; I87.2 Venous insufficiency (chronic) (peripheral); R60.0 Localized edema; I10 Essential (primary) hypertension; F03.90 Unspecified dementia, unspecified severity, without behavioral disturbance, psychotic disturbance, mood disturbance, and anxiety; F32.9 Major depressive disorder, single episode, unspecified; F41.9 Anxiety disorder, unspecified; Z86.73 Personal history of transient ischemic attack (TIA), and cerebral infarction without residual deficits ==

== ENCOUNTER → 2019-09-17 | Outpatient (CLI) | payer OTHER | LOC: HYPER 07:38 | PROVIDERS: ATTEND Emergency Medicine Emergency Medical Services | DX: I87.322 Chronic venous hypertension (idiopathic) with inflammation of left lower extremity (principal); E11.621 Type 2 diabetes mellitus with foot ulcer; L97.526 Non-pressure chronic ulcer of other part of left foot with bone involvement without evidence of necrosis; E11.622 Type 2 diabetes mellitus with other skin ulcer; L97.821 Non-pressure chronic ulcer of other part of left lower leg limited to breakdown of skin; S90.822D Blister (nonthermal), left foot, subsequent encounter; I87.391 Chronic venous hypertension (idiopathic) with other complications of right lower extremity; I89.0 Lymphedema, not elsewhere classified; R60.0 Localized edema; E11.36 Type 2 diabetes mellitus with diabetic cataract; E78.5 Hyperlipidemia, unspecified; I10 Essential (primary) hypertension; E11.69 Type 2 diabetes mellitus with other specified complication; M86.9 Osteomyelitis, unspecified; F03.90 Unspecified dementia, unspecified severity, without behavioral disturbance, psychotic disturbance, mood disturbance, and anxiety; F41.9 Anxiety disorder, unspecified; F32.9 Major depressive disorder, single episode, unspecified; Z86.73 Personal history of transient ischemic attack (TIA), and cerebral infarction without residual deficits; X58.XXXD Exposure to other specified factors, subsequent encounter ==

== ENCOUNTER 2019-10-03 10:17 | Inpatient (IN) | payer OTHER ==
[~2019-10-03] VITALS: Ht 160 cm; Wt 81.6 kg
--- NOTE | ~2019-10-03 | HC ---
[facility] [place] [address] CONSULTATION Name: RUT GUTHRIE Room #: 438-P ADM IN M.R.#: [id number] Admission: 10/03/19 Attend Phys: Cristopher Suarez MD Discharge: Date of : 40 Report #: [id number] THIS REPORT FOR: cc: Carlos Ramirez MD,Xavier Brown MDM ~ CC: Carlos Suarez DATE OF SERVICE: 10/04/2019 ADMISSION DIAGNOSIS: Cellulitis, left leg with diabetic foot ulcer. HISTORY OF PRESENT ILLNESS: The patient is a 79-year-old female, admitted for cellulitis to the left lower extremity with concomitant foot ulceration to the plantar fifth metatarsal styloid. She has chronic lymphedema, hypertension, hyperlipidemia. She has been febrile with poor appetite, general weakness and increased confusion in the evening. She was admitted to [facility] about 3 weeks ago for the same, and she was discharged on Dalvance antibiotic, which she completed about a week ago. She currently denies nausea, vomiting, diarrhea, chest pain or shortness of breath. She currently has a urinary tract infection. Left foot MRI, arterial Doppler and foot radiographs have been ordered. Blood cultures are negative thus far. The patient is on parenteral ceftriaxone with good tolerance. LABORATORY DATA: WBC 7.8, RBC 3.28, hemoglobin 9.5, hematocrit 29.0, platelets 291, albumin 2.1. BUN 10, creatinine 0.6, glucose 103. CRP 116.9. PHYSICAL EXAMINATION: The left lower extremity has lymphedema with moderate inflammation to the anterior and lateral aspect. There is a full-thickness ulceration to the plantar lateral fifth metatarsal styloid with red granulation, no visible bone. I can palpate bone with a sterile Q-tip. There is no fluctuance or crepitation. The foot is warm with no pallor, cyanosis or signs of acute vascular embarrassment. No left popliteal adenopathy noted. Toenails are dystrophic without paronychia. Right foot has no open lesions. She has faintly palpable dorsalis pedis pulses bilaterally, nonpalpable posterior tibial pulses. IMPRESSION: Diabetic foot ulceration, left fifth metatarsal styloid with cellulitis/possible osteomyelitis, lymphedema. PLAN: The wound was cleansed and redressed with Xeroform and Bordered Foam. I will review foot radiographs, MRI and arterial Doppler studies when available. [address] [address] CONSULTATION Name: RUT GUTHRIE Room #: 438-P [facility]#: [id number] Admission: 10/03/19 Attend Phys: Cristopher Suarez MD Discharge: Date of : 40 Report #: [id number] The patient may require wound debridement, and possible bone resection if there are convincing signs of osteomyelitis. By: 1251 1721 Xavier Pfeiffer, TAMY /nnamdi
--- NOTE | ~2019-10-03 | HC ---
[facility] [place] [address] CONSULTATION Name: RUT GUTHRIE Room #: 438- ADM IN M.R.#: [id number] Admission: 10/03/19 Attend Phys: Cristopher Suarez MD Discharge: Date of : 40 Report #: [id number] THIS REPORT FOR: cc: Carlos Ramirez MD,Xavier Brown MD DPM ~ CC: Carlos Suarez DATE OF SERVICE: 10/06/2019 CHIEF COMPLAINT: Followup of diabetic mal perforans ulceration to the left plantar fifth metatarsal styloid. CT scan and plain x-rays were negative for osteolysis or subcutaneous emphysema. Arterial Doppler ultrasound showed strong triphasic waveforms to the ankles bilaterally with no evidence of stenosis. Wound culture grew corynebacterium species. Blood cultures are negative x 2. She is on parenteral vancomycin and cefepime. She is alert, oriented with no pain to the left foot except with direct pressure to the wound. LABORATORY DATA: WBC 7.1, RBC 3.05, hemoglobin 8.9, hematocrit 27.1, platelets 282, BUN 6, creatinine 0.6, glucose 101. PHYSICAL EXAMINATION: Temperature 99.1, pulse 83, blood pressure 138/66, O2 sat 94. Wound to the left plantar lateral fifth metatarsal styloid has red granulation with some areas of yellow pale slough. No exposed bone or tendon. No tunneling, no fluctuance/crepitation. Low-grade inflammation to the periwound and the area has mild pain to palpation. No other lesions noted. There is no pallor, cyanosis or signs of acute vascular embarrassment to the right foot. Toenails are dystrophic without paronychia. She has advanced edema to both legs with no blisters noted. No lesions are noted to the right lower extremity. IMPRESSION: Diabetic mal perforans ulceration, Delvalle stage 2, left lateral fifth metatarsal styloid. PLAN: The wound was cleansed, dried and dressed with Aquacel Ag, ABD and Kerlix. I did not reapply Kerlix and Coban to her legs because they were binding into her skin and causing furrows down her legs from her advanced edema. Perhaps tomorrow, I will apply a thick layer of soft roll first and then Federico bandages. No surgery is warranted to the foot at this time. I will order some Darco wound healing shoes from [facility] to allow weightbearing during physical therapy and for transfers and short distances. By: 0910 0936 Xavier Pfeiffer DPM /nnamdi
[2019-10-03 10:24] VITALS: BP 117/56
[2019-10-03 11:06] LABS: ABSOLUTE NEUTROPHILS 6.9 thou/uL (1.4-8.2); BASOPHILS 2.6 % (0.0-2.0); EOSINOPHILS 2.6 % (0.0-3.0); HEMATOCRIT 30.8 % (37.0-47.0); HEMOGLOBIN 10.7 gm/dL (12.0-15.0); LYMPHOCYTES 14.7 % (24.0-44.0); MCH 30.6 pg (26.0-34.0); MCHC 34.7 g/dL (28.0-37.0); MCV 87.9 fL (80.0-100.0); MONOCYTES 7.8 % (1.0-8.0); PLATELET COUNT 320 thou/uL (150-400); POLYS 72.3 % (36.0-66.0); RDW 15.4 % (10.5-14.5); WBC 9.5 thou/uL (4.0-11.0)
[2019-10-03 11:11] LABS: CALCIUM 8.1 mg/dL (8.5-10.1); CREATININE 0.9 mg/dL (0.6-1.0); POTASSIUM 3.4 mmol/L (3.5-5.1)
[2019-10-03] MEDS ORDERED: HYDROCHLOROTHIA25 M2 PO (11:21)
[2019-10-03] MEDS ORDERED: ATENOLOL 25 MG25 M1 PO (11:21)
[2019-10-03 12:20] LABS: URINE BLOOD 3+ (Negative); URINE COLOR YELLOW; URINE GLUCOSE-RANDOM* NEGATIVE (Negative); URINE KETONES NEGATIVE (Negative); URINE NITRITE-REFLEX NEGATIVE (Negative); URINE PROTEIN (DIPSTICK) TRACE (Negative); URINE SPECIFIC GRAVITY 1.025 (1.005-1.035); URINE UROBILINOGEN 0.2 E.U./dl (0.2-1.0)
[2019-10-03 12:25] LABS: ICTOTEST (BILI CONFIRMATORY) Negative (Negative); URINE BILIRUBIN NEGATIVE (Negative); URINE CLARITY HAZY; URINE LEUKOCYTES-REFLEX 1+ (Negative)
[2019-10-03 12:41] LABS: CASTS None Seen /LPF (None Seen); MUCUS 0-3 Light strn/LPF (None Seen); SQUAMOUS >10 Many /LPF (0-3)
[2019-10-03 12:43] LABS: URINE RBC 0-2 Rare /HPF (0-2); URINE WBC-REFLEX 0-5 Rare /HPF (0-5)
[2019-10-03 12:44] LABS: AMORPHOUS URATES Few /LPF (None Seen); CALCIUM OXALATE 0-3 Few /LPF (None Seen)
[2019-10-03 12:45] LABS: BACTERIA-REFLEX >30 Many /HPF (None Seen)
[2019-10-03 16:52] LABS: FOLIC ACID 4.1 ng/mL (8.6-58.9)
[2019-10-03 17:30] VITALS: BP 141/49
[2019-10-03 18:35] VITALS: BP 141/41
[2019-10-03 18:49] VITALS: BP 112/35
[2019-10-03 20:00] VITALS: BP 118/50
[2019-10-03 21:00] VITALS: BP 118/50
[2019-10-04] VITALS: BP 139/61
--- NOTE | 2019-10-04 00:16 | NUR ---
ASSESSED AT START OF SHIFT 1900. PT A&OX4 PT ARRIVED FROM ER PRIOR TO SHIFT CHANGE. ADMISSION DONE AND PT ORIENTED TO THE ROOM. IV INTACT AND FLUIDS INFUISING. WOUND PICTURE TAKEN AND DRESSING INTACT IN BLE. DR BAKER STOPED BY TO SEE PT THIS EVENING. FALL PREC IN PLACE, CALL LIGHT IN REACH WILL CONT WITH POC TILL EOS.
[2019-10-04 03:37] VITALS: BP 135/64
[2019-10-04 05:59] LABS: ABSOLUTE NEUTROPHILS 5.2 thou/uL (1.4-8.2); BASOPHILS 2.1 % (0.0-2.0); EOSINOPHILS 6.2 % (0.0-3.0); HEMOGLOBIN 9.5 gm/dL (12.0-15.0); LYMPHOCYTES 17.2 % (24.0-44.0); MCH 28.9 pg (26.0-34.0); MCHC 32.7 g/dL (28.0-37.0); MCV 88.4 fL (80.0-100.0); MONOCYTES 8.8 % (1.0-8.0); PLATELET COUNT 291 thou/uL (150-400); POLYS 65.7 % (36.0-66.0); RBC 3.28 mil/uL (4.20-5.00); RDW 15.4 % (10.5-14.5); WBC 7.8 thou/uL (4.0-11.0)
[2019-10-04 06:09] LABS: CALCIUM 7.5 mg/dL (8.5-10.1); CREATININE 0.6 mg/dL (0.6-1.0); MAGNESIUM 1.9 mg/dL (1.8-2.4); POTASSIUM 3.8 mmol/L (3.5-5.1)
[2019-10-04 07:45] VITALS: BP 150/65
[2019-10-04] MEDS ORDERED: FUROSEMIDE 20 M20 M1 PO (07:58)
[2019-10-04] MEDS ORDERED: DONEPEZIL HCL 55 M1 PO (08:01)
[2019-10-04] MEDS ORDERED: HYDRALAZINE 5050 MG PO (08:02)
[2019-10-04] MEDS ORDERED: VERAPAMIL ER240 M1 PO (09:08)
[2019-10-04] MEDS ORDERED: AAA-MED REC COMPLETE PO (09:09)
--- NOTE | 2019-10-04 09:48 | NUR ---
WOUND CONSULT; THE PATIENT HAS PRESSURE INJURIES TO THE BUTTOCKS/COCCYX/SACRUM/LEFT ISCHIAL TUBEROSITY. THERE IS AN UNSTAGEABLE PRESSURE WOUND TO THE LEFT LATERAL FOOT THE WOUND BED HAS NECROSIS. THE LEFT LEG HAS S/S CONSISTANT WITH A RESOLVING CELLULITIS INFECTION WITH EDEMA AND SKIN CHANGES. RECOMMEDNATIONS; -CONSULT WAS ENTERED IN ERROR THE WOUND CARE PHYSICIAN IS ALREADY INVOLVED. NO NEED TO FOLLOW THIS PATIENT
[2019-10-04 15:24] VITALS: BP 130/62
--- NOTE | 2019-10-04 15:54 | NUR ---
INITIAL ASSESSMENT: Received consult. BOBBI reviewed chart. Pt was admitted from home due to weakness. Pt's son had to lower her to the ground. Pt with UTI and left foot wound. Pt is currently on IV abx. Pt febrile. Not on any O2. PT/OT ordered and recommending HH at time of discharge. BOBBI placed call to pt's room. No answer. SW left voice message on pt's cell phone: [phone]. SW also left voice message for her dtr, Katie: [phone] and son, Gus: [phone]. Per chart, pt lives at home with Gus. No steps to navigate at the home. Pt sees Dr. Hanson for outpatient wound care. Pt uses a walker at home. Pt not interested in post-acute care. Awaiting call back from pt/family. BOBBI is following to assist as needed with discharge planning.
--- NOTE | 2019-10-04 18:11 | NUR ---
PT CARE ASSUMED AT 0700. A&Ox4. PERSONAL LINES INSURANCE ADVISOR CONSULTED. WOUND CARE COMPLEETED. ACHS WITH NO COVERAGE NEEDED TODAY. MEDICATIONS HAVE BEEN RECONCILED. IV PATENT WITH NO REDNESS OR EDEMA, FLUIDS INFUSING. PRAFO BOOTS IN PLACE. LOW AIRLOSS PUMP. PT CANNOT HAVE MRI DUE TO PLATE IN HER ANKLE. US, XRAY OF THE FOOR AND CT COMPLEETED TODAY. MEDICAL RECORDS HAVE BEEN REQUESTED FROM [facility]. PER ST PT IS NOT RECOMMENDED TO HANDLE HER OWN MONEY ANYMORE DUE TO HER COGNITIVE LEVEL. A&Ox1 TO PERSON THIS MORNING. CALL LIGHT IN REACH. FALL PROTOCOL IN PLACE. LOW GRADE FEVERS WITH NO TYLENOL TREATMENT PER DR. LEÓN. WILL CONTINUE TO MONITOR.
[2019-10-04 19:00] VITALS: BP 132/70
--- NOTE | 2019-10-04 20:26 | NUR ---
1900 ASSUMED CARE OF PT AFTER BEDSIDE REPORT. 2019 BASELINE ASSESSMENT COMPLETED, PT LEFT BOOTS ON X 1 HOUR AND NOW IS REFUSING THEM EVEN AFTER EDUCATION ABOUT BENEFITS, STATES SHE WILL SPEAK WITH THE DOCTOR IN THE MORNING. PAIN MEDS GIVEN FOR PAIN 8/10, FALL PRECAUTIONS IN PLACE, WILL CONTINUE TO MONITOR
[2019-10-05 04:12] VITALS: BP 137/79
[2019-10-05 07:30] VITALS: BP 140/82
--- NOTE | 2019-10-05 11:43 | NUR ---
Case discussed with the care team. Pt's son her during OT tx this am and indicates he can assist with her care needs in the home. The pt normally does outpt wound clinic f/u. She refused PT today. Should the pt be dc'd to home this weekend and pt/family receptive to , referral can be called and faxed to Allan RODRIGUEZ at [phone] and fax [phone].
[2019-10-05 14:50] VITALS: BP 149/75
[2019-10-05 15:05] LABS: HEMATOCRIT 28.8 % (37.0-47.0); HEMOGLOBIN 9.8 gm/dL (12.0-15.0); MCH 30.3 pg (26.0-34.0); MCV 89.1 fL (80.0-100.0); RBC 3.23 mil/uL (4.20-5.00); RDW 15.9 % (10.5-14.5); WBC 7.7 thou/uL (4.0-11.0)
[2019-10-05 15:19] LABS: CALCIUM 7.6 mg/dL (8.5-10.1); CREATININE 0.6 mg/dL (0.6-1.0); MAGNESIUM 1.5 mg/dL (1.8-2.4); PHOSPHORUS 2.5 mg/dL (2.5-4.9); POTASSIUM 3.5 mmol/L (3.5-5.1)
[2019-10-05 15:20] LABS: % SATURATION 22 % (20-39); IRON 39 ug/dL (50-170); TIBC 181 ug/dL (250-450)
--- NOTE | 2019-10-05 16:47 | NUR ---
PT CARE ASSUMED AT 0700. A&Ox3 NOT TO SITUATION. PT STATED SHE IS "HERE BECAUSE OF A STROKE". PT REFUSES TO WEAR HER PRAFO BOOTS. LOW AIRLOSS PUMP IN PLACE. WOUND DRESSING CHANGE COMPLEETE. UP IN THE RECLINER IN THE AM UNTIL 1130. PAIN CONTROLLED WITH PAIN MEDICATION. ANTIBIOTIC SWITCHED DUE TO BEING RESISTANT TO CURRENT ANTIBIOTIC. IV PATENT WITH NO REDNESS OR EDEMA, FLUIDS INFUSING. +2 EDEMA L LOWER EXTRMITY. +1 EDEMA R. LOWER EXTRMITY. SACRUM WOUND HAS TUNNELING PRESENT. PICTURE TAKEN AND WOUNDCARE INFORMED. SON IN ROOM MOST OF THE DAY. FALL PROTOCOL IN PLACE. CALL LIGHT IN REACH.
[2019-10-05 19:13] VITALS: BP 152/82
--- NOTE | 2019-10-05 21:13 | NUR ---
1900 ASSUMED CARE OF PT, 1930 BASELINE ASSESSMENT COMPLETED,PT WITH LABORED RESP 40 WHEEZES ON BILAT UPPER LOBES DIMINISHED AT BASES, POSITION CHANGED O2 2L NC, RESP IN ROOM TO EVALUATE PT AND ZENAIDA ADAMS CONTACTED AT 1999 FOR CHANGE IN RESP STATUS, ORDERS IN COMPUTER ACKNOWLEDGED AND RESP THERAPY NOTIFIED. 2099 PT STATES SHE IS FEELING BETTER RESP SLIGHTLY LESS LABORED 97% ON 2L NC, RESP 28 WILL CONTINUE TO MONITOR, FALL PRECAUTIONS IN PLACE
[2019-10-06 05:59] LABS: HEMATOCRIT 27.1 % (37.0-47.0); HEMOGLOBIN 8.9 gm/dL (12.0-15.0); MCH 29.3 pg (26.0-34.0); MCV 88.9 fL (80.0-100.0); RBC 3.05 mil/uL (4.20-5.00); RDW 15.8 % (10.5-14.5); WBC 7.1 thou/uL (4.0-11.0)
[2019-10-06 06:12] LABS: CALCIUM 7.5 mg/dL (8.5-10.1); CREATININE 0.6 mg/dL (0.6-1.0); MAGNESIUM 1.8 mg/dL (1.8-2.4); POTASSIUM 3.4 mmol/L (3.5-5.1)
[2019-10-06 06:19] VITALS: BP 153/63
[2019-10-06 08:34] VITALS: BP 138/66
--- NOTE | 2019-10-06 10:49 | NUR ---
PT CARE ASSUMED AT 0700. A&Ox4. PODIETRY ON SITE THIS AM. DR. GRAVES REMOVED BILATERAL LEG DRESSING AND WANTS BOTH LEGS OPEN TO AIR FOR THE WEEKEND. LEFT MESSAGE WITH RIDE MECHANIC TO ORDER PT ORTHOPEDIC SHOES. MINIMAL PAIN THROUGHOUT THE DAY WELL CONTROLLED WITH PAIN MEDICATION. PER SILKE BOTTOM IS TO BE LEFT OPEN TO AIR WITH ONLY ZGUARD AND NYSTATIN MIXED TO BE APPLIED. WOUND IS WAITING FOR THE FUNGAL TO CLEAR UP MORE BEFORE CHANGING TO A DIFFERENT DRESSING ORDER. IV PATENT WITH NO REDNESS OR EDEMA, FLUIDS INFUSING. PT EVALUATION ORDERED. FALL PROTOCOL IN PLACE. CALL LIGHT IN REACH. LUNGS SOUND WHEEZY WITH RR AT 18. WILL CONTINUE TO MONITOR.
[2019-10-06 16:38] VITALS: BP 151/59
[2019-10-06 19:40] VITALS: BP 126/62
--- NOTE | 2019-10-07 03:21 | NUR ---
RECIEVED CARE OF THIS PATIENT AT 1900. PATIENT ALERT AND ORIENTED X4HAS SEVERAL WOUNDS ON CONNIE LOWER WXT THAT IS OPEN TO AIR PER DOCTOR'S ORDERS. HAS WOUND ON SACRUM WELL, ALSO OPEN TO AIR. UP TO BSC WITH ASSIST.ACCUCHECK 87, NO COVVERAGE NEEDED. DENIES PAIN. IV IN L BREAST PATENT WITH FLUIDS INFUSING. SLEPT MOST OF THE NIGHT.
[2019-10-07 07:00] VITALS: BP 145/61
--- NOTE | 2019-10-08 07:39 | NUR ---
PT LYING IN BED. VOIDED PER BEDPAN OVERNIGHT. DENIES NEED FOR PAIN MEDICATION. RESTING COMFORTABLY. NO NEEDS VOICED. CALL LIGHT WITHIN REACH. FREQUENT OBSERVATION.
[2019-10-08 07:47] VITALS: BP 145/70
--- NOTE | 2019-10-08 10:44 | NUR ---
PT AND HER SON DECLINED MAMMOGRAM AND ULTRASOUND SINCE SHE HAS AN OUTPATIENT TEST ALREADY SCHEDULED. THEY WOULD PREFER TO KEEP THAT APPOINTMENT.
--- NOTE | 2019-10-08 11:29 | HC ---
[facility] [place] [address] CONSULTATION Name: RUT GUTHRIE Room #: 438-P [facility] IN M.R.#: [id number] Admission: 10/03/19 Attend Phys: Cristopher Suarez MD Discharge: Date of : 40 Report #: [id number] THIS REPORT FOR: cc: Carlos Ramirez MD,Carl Palacios MD, MD ~ CC: Carlos Suarez DATE OF SERVICE: 10/04/2019 WOUND CARE CONSULTATION PERSONAL PHYSICIAN: Carlos Ramirez MD CHIEF COMPLAINT: Left foot wound and gluteal ulceration. HISTORY OF PRESENT ILLNESS: This is a 79-year-old white female who we have been following in our wound clinic for chronic ulcer on her left lateral foot which started out as a pressure-induced wound from a strap on her shoe that has now led to a chronic ulcer. The patient was seen approximately 3 weeks ago at [facility] for the left foot wound infection and treated with Dalvance. The patient was seen by my partner while she was at inpatient at [facility] and an MRI was performed at that time, which showed no sign of osteomyelitis. The patient herself is very confused today, more than her normal baseline and due to the patient's significant immobility over the past several weeks, the patient has now developed ulceration on her right buttock and has been incontinent of urine, which has now led to moisture-associated dermatitis in the gluteal region. The patient has chronic lower extremity edema, which is worse today than it has been in the past. The patient herself is unable to give any other history except for the fact that she remembers she was at [facility] approximately 3 weeks ago. There is no family with her at this time. Normally, her son comes with her and he is the one who provides most of the history. Nursing staff also have noted a deep tissue injury on the plantar aspect of her left fifth metatarsal head which had not been present on previous clinical examinations over the past several weeks. PAST MEDICAL HISTORY: Significant for hypertension, hyperlipidemia, chronic lower extremity edema consistent with lymphedema, type 2 diabetes. CURRENT MEDICATIONS: Multiple, I reviewed the patient's medication list. DRUG ALLERGIES: DILTIAZEM. SOCIAL HISTORY: The patient has no history of smoking. The patient resides at home with her son who is her primary caregiver. [address] [address] CONSULTATION Name: RUT GUTHRIE Abel Room #: 438-P [facility] IN M.R.#: [id number] Admission: 10/03/19 Attend Phys: Cristopher Suarez MD Discharge: Date of : 40 Report #: [id number] FAMILY HISTORY: Not pertinent to current medical condition. REVIEW OF SYSTEMS: Essentially unobtainable because of the patient's confusion this morning. PHYSICAL EXAMINATION: VITAL SIGNS: Temperature 37.4, pulse 86, respirations 18, BP 150/65. GENERAL: This is an alert and oriented x 1, person, but not place or time, elderly white female who appears chronically ill. HEENT: Normocephalic, atraumatic. Mucous membranes are dry. Pupils are round. NECK: Supple, nontender. LUNGS: Slightly diminished breath sounds heard throughout. HEART: Regular. ABDOMEN: Obese, soft, nontender. GENITOURINARY: Evaluation of the gluteal sacral region reveals an unstageable decubitus ulcer on the right gluteal region with slough centrally. Periwound is macerated with associated dermatitis, which appears to be fungal. There is a small area over the coccyx that is consistent with a stage 3 decubitus ulcer, which is approximately 75% granulation tissue, 25% slough. There is no evidence of any exposed bone. The rest of the gluteal area once again has essentially a fungal dermatitis. EXTREMITIES: Have 3+ edema. Distal pulses are 1+. Evaluation of the left lateral foot reveals a chronic ulcer over the area of the base of the fifth metatarsal without evidence of exposed bone, it is approximately 50% granulation tissue, 50% loosely adherent slough. On the head of the fifth metatarsal is an ecchymotic area, which is tender to palpation. It is not open, is consistent with a deep tissue injury. No other associated ulcerations are noted. Right foot shows no signs of any obvious open ulcerations. NEUROLOGIC: Cranial nerves 2-12 are grossly intact. Motor and sensory grossly intact. LABORATORY VALUES: White count 7.8, hemoglobin 9.5. Sed rate 57. BUN 10, creatinine 0.6. C-reactive protein 116.9. IMPRESSION: 1. Chronic ulceration, left lateral foot consistent with a stage 3 decubitus ulcer. 2. Deep tissue injury to the left fifth metatarsal head. 3. Stage 3 coccygeal decubitus ulcer. 4. Unstageable decubitus ulcer, right buttock. 5. Moisture-associated dermatitis consistent with fungal dermatitis to the gluteal region. 6. Type 2 diabetes. 7. Generalized debility. 8. Chronic lymphedema, bilateral lower extremities with lower extremity swelling and cellulitis. [facility] [address] [place] [address] CONSULTATION Name: RUT GUTHRIE Room #: 438-P ADM IN Ana.Paul.#: [id number] Admission: 10/03/19 Attend Phys: Cristopher Suarez MD Discharge: Date of : 40 Report #: [id number] PLAN: We will do silver alginate to the coccygeal ulcer and the left lateral foot ulceration, change daily. We will place the patient in Prevalon boots for offloading of the heels. We will paint the left fifth metatarsal head with Betadine daily. We will use Lotrisone cream to the buttock area twice daily for the fungal dermatitis. We will put the patient on low air loss mattress and will be turned every 2 hours. Try to enhance the patient's oral protein supplementation for healing. We will utilize physical and occupational therapy as able for strengthening. IV antibiotics have been started by Dr. Grant. Continue all other current medications. We will continue to follow the patient while she is here in the hospital. Consider a Podiatry consult for possible debridement of the left lateral foot wound. <ELECTRONICALLY SIGNED> By: Carl Chavis MD 10/08/19 1129 1031 1545 Carl Chavis MD /nt
--- NOTE | 2019-10-08 12:40 | NUR ---
Nutrition: Following for oral intake progress following the weekend. Met with pt and son prior to lunch. Pt reports difficulty tolerating the large portions and has difficulty chewing some of the meat/entrees. Pt did not express this when asked at first RD assessment. Plan to change entrees to 1/2 portions to minimize size. Reviewed upcoming dinner and breakfast and made appropriate changes to improve meat texture/softness and help increase po success. Pt states appetite is up/down, but would likely eat more with new menu changes. Dinner tonight will be chicken salad, vegetables, pears, potatoes. Given pt's up/down intake depending on the meal, pt also agreeable to daily chocolate Glucerna added at breakfast after RD encouragement. This adds 240 kcals, 10 g protein. Remains on folic acid replacement for deficiency and recently started on ergocalciferol for low vitamin D. Change to low nutrition risk now with menu modifications made and oral supplement regimen started.
[2019-10-08 15:30] VITALS: BP 138/72
[2019-10-08 19:01] VITALS: BP 145/74
--- NOTE | 2019-10-08 19:13 | NUR ---
PT REPORTS PAIN TO BACK/SACRUM AROUND 7 OR 8...MEDICATED WITH NORCO WITH FAIR RESULTS...
[2019-10-09 03:27] VITALS: BP 147/88
[2019-10-09 07:00] VITALS: BP 148/69
--- NOTE | 2019-10-09 07:33 | NUR ---
VERY PLEASNT LADY. GLUTEAL FOLDS OFFLOADED NEEDED, BLE ELEVATED. ON FOR COMFORT. AFEBRILE. TAKES MEDS OKAY.
--- NOTE | 2019-10-09 10:09 | NUR ---
ON-GOING ASSESSMENT: CM REVIEWED CHART AND SPOKE WITH PATIENTS SON ILDEFONSO WHO IS AN RN. PLAN IS FOR PATIENT TO POSSIBLE DISCHARGE HOME TODAY WITH HOME HEALTH. [facility] AND THEY REQUESTED REFERRAL THERE. CM FAXED REFERRAL. PT DID WELL WITH PHYSICAL THERAPY AND HAS A WALKER AT HOME ALREADY. CM WILL CONTINUE TO FOLLOW.
[2019-10-09 11:42] VITALS: BP 148/69
[2019-10-09] MEDS ORDERED: FOLIC ACID1 MG PO (14:00)
[2019-10-09] MEDS ORDERED: DOXYCYCLINE 10100 M2 PO (14:08)
[2019-10-09] MEDS ORDERED: VITAMIN D21250 MC1 PO (14:08)
[2019-10-09] MEDS ORDERED: NYSTATIN15 G1 TOP (14:09)
[2019-10-09 14:30] VITALS: BP 148/69
--- NOTE | 2019-10-09 15:35 | NUR ---
Assumed care of patient at 0700. Pt. is excited to possibly go home today. Pt. was given IV antibiotics. Paitent was repositioned multiple times. Dressing change was performed on the Pt's wounds. Pt.'s IVs were removed, and left with her son after discharge with all belongings.
== END 2019-10-09 16:18 | disposition home health service (06) | DRG 871 ==
LOC: ER 10:17 → 4S 14:01 → EROBS 14:01 → 4S 18:35
PROVIDERS: Emergency Medicine; Nurse Practitioner; ADMIT Internal Medicine; ATTEND Internal Medicine
DX: A41.9 Sepsis, unspecified organism (principal); L89.893 Pressure ulcer of other site, stage 3; L89.153 Pressure ulcer of sacral region, stage 3; G93.41 Metabolic encephalopathy; L03.116 Cellulitis of left lower limb; L03.115 Cellulitis of right lower limb; N39.0 Urinary tract infection, site not specified; J98.11 Atelectasis; N17.9 Acute kidney failure, unspecified; L89.890 Pressure ulcer of other site, unstageable; I10 Essential (primary) hypertension; E78.5 Hyperlipidemia, unspecified; E11.621 Type 2 diabetes mellitus with foot ulcer; L89.310 Pressure ulcer of right buttock, unstageable; I89.0 Lymphedema, not elsewhere classified; F03.90 Unspecified dementia, unspecified severity, without behavioral disturbance, psychotic disturbance, mood disturbance, and anxiety; E87.6 Hypokalemia; D64.9 Anemia, unspecified; R82.71 Bacteriuria; B37.2 Candidiasis of skin and nail; B36.8 Other specified superficial mycoses; E53.8 Deficiency of other specified B group vitamins; G47.00 Insomnia, unspecified; E55.9 Vitamin D deficiency, unspecified; M62.84 Sarcopenia; R63.4 Abnormal weight loss; L97.529 Non-pressure chronic ulcer of other part of left foot with unspecified severity; Z68.31 Body mass index [BMI] 31.0-31.9, adult; Z90.49 Acquired absence of other specified parts of digestive tract; Z90.710 Acquired absence of both cervix and uterus; Z88.8 Allergy status to other drugs, medicaments and biological substances
CPT/HCPCS: 10102; 10195

== ENCOUNTER → 2019-10-19 | Outpatient (CLI) | payer OTHER ==
[~2019-10-19] MED LIST changes: +AAA-MED REC COMPLETE PO; +ATENOLOL 25 MG25 M1 PO; +DONEPEZIL HCL 55 M1 PO; +DOXYCYCLINE 10100 M2 PO; +FOLIC ACID1 MG PO; +FUROSEMIDE 20 M20 M1 PO; +HYDRALAZINE 5050 MG PO; +HYDROCHLOROTHIA25 M2 PO; +NYSTATIN15 G1 TOP; +VERAPAMIL ER240 M1 PO; +VITAMIN D21250 MC1 PO
== END ==
LOC: HYPER 10:47
PROVIDERS: ATTEND Emergency Medicine Emergency Medical Services
DX: E11.621 Type 2 diabetes mellitus with foot ulcer (principal); I87.332 Chronic venous hypertension (idiopathic) with ulcer and inflammation of left lower extremity; L97.526 Non-pressure chronic ulcer of other part of left foot with bone involvement without evidence of necrosis; I87.321 Chronic venous hypertension (idiopathic) with inflammation of right lower extremity; E11.622 Type 2 diabetes mellitus with other skin ulcer; L89.153 Pressure ulcer of sacral region, stage 3; L98.491 Non-pressure chronic ulcer of skin of other sites limited to breakdown of skin; I89.0 Lymphedema, not elsewhere classified; E11.36 Type 2 diabetes mellitus with diabetic cataract; E78.5 Hyperlipidemia, unspecified; E11.69 Type 2 diabetes mellitus with other specified complication; M86.9 Osteomyelitis, unspecified; F41.9 Anxiety disorder, unspecified; F32.9 Major depressive disorder, single episode, unspecified; Z86.73 Personal history of transient ischemic attack (TIA), and cerebral infarction without residual deficits

== ENCOUNTER 2019-10-26 01:49 | Inpatient (IN) | payer OTHER ==
[2019-10-26] VITALS (43 sets, daily range): BP systolic 64–165; BP diastolic 18–108
[~2019-10-26] VITALS: Ht 152.4 cm; Wt 68.0 kg
[2019-10-26 02:17] LABS: BASOPHILS 1.9 % (0.0-2.0); EOSINOPHILS 1.2 % (0.0-3.0); LYMPHOCYTES 24.4 % (24.0-44.0); MCH 29.4 pg (26.0-34.0); MCHC 31.4 g/dL (28.0-37.0); MCV 93.4 fL (80.0-100.0); MONOCYTES 10.5 % (1.0-8.0); PLATELET COUNT 279 thou/uL (150-400); RBC 2.05 mil/uL (4.20-5.00); RDW 17.4 % (10.5-14.5); WBC 16.2 thou/uL (4.0-11.0)
[2019-10-26 02:26] LABS: HEMATOCRIT 19.1 % (37.0-47.0)
[2019-10-26 02:36] LABS: ANION GAP 19 mmol/L (7-16); BUN 33 mg/dL (7-18); CALCIUM 7.6 mg/dL (8.5-10.1); CHLORIDE 103 mmol/L (98-107); CO2 20 mmol/L (21-32); CREATININE 1.7 mg/dL (0.6-1.0); GLUCOSE 121 mg/dL (74-106); POTASSIUM 4.1 mmol/L (3.5-5.1); SODIUM 142 mmol/L (136-145)
[2019-10-26 02:46] LABS: ALBUMIN 1.8 g/dL (3.4-5.0); DIRECT BILIRUBIN 0.2 mg/dL (<0.1-0.2); LIPASE 122 U/L (73-393); SGOT 157 U/L (15-37); SGPT 63 U/L (30-65); TOTAL BILIRUBIN 0.7 mg/dL (0.2-1.0); TOTAL PROTEIN 5.1 g/dL (6.4-8.2); TROPONIN-I <0.06 ng/mL (<0.06)
[2019-10-26 04:36] LABS: APTT 23.3 Seconds (24.5-32.8); INR 1.4; PROTIME 14.6 Seconds (9.3-11.4)
[2019-10-26 06:48] LABS: MCV 92.6 fL (80.0-100.0); RDW 15.5 % (10.5-14.5); WBC 25.1 thou/uL (4.0-11.0)
[2019-10-26 06:51] LABS: MCH 30.5 pg (26.0-34.0); MCHC 32.9 g/dL (28.0-37.0); RBC 1.99 mil/uL (4.20-5.00)
[2019-10-26 06:54] LABS: PLATELET COUNT 188 thou/uL (150-400)
[2019-10-26 06:57] LABS: CALCIUM 6.6 mg/dL (8.5-10.1); CREATININE 1.5 mg/dL (0.6-1.0); HEMATOCRIT 18.4 % (37.0-47.0); HEMOGLOBIN 6.1 gm/dL (12.0-15.0); POTASSIUM 3.8 mmol/L (3.5-5.1)
[2019-10-26 07:04] LABS: INR 1.9; PROTIME 19.9 Seconds (9.3-11.4)
[2019-10-26 07:13] LABS: BE(vivo) -9.5 mmol/L (-2 to +3); HCO3 16.3 mmol/L (22.0-26.0); PCO2 35.2 mmHg (35.0-45.0); sO2 99.4 % (92.0-98.0)
[2019-10-26 07:15] LABS: pH 7.283 (7.360-7.450)
--- NOTE | 2019-10-26 07:38 | NUR ---
OR BROUGHT PATIENT TO UNIT AT 0600. LEVO INFUSING, PROTONIX. ARTLINE REINSERTED, CENTRAL LINE INSERTED. SEVERE SEPSIS PROTOCOL INITIATED. NG TO LIS, 200 ML OF CARLIN BLOOD. LARGE BLEED FROM RECTUM. DAY SHIFT TOOK OVER AT 0640, WILL BE INSERTING PINEDA, OBTAINING CULTURES, TAKING PICS OF WOUND. REPORT GIVEN. PATIENT REMAINS VERY CRITICAL. NOT PROGRESSING TOWARDS POC.
--- NOTE | 2019-10-26 08:14 | EKG ---
[facility] [place] [address] ELECTROCARDIOGRAM REPORT Name: RUT GUTHRIE Room #: 249-P ADM IN M.R.#: [id number] Admission: 10/26/19 Attend Phys: Erin Main MD Discharge: Date of : 40 Report #: [id number] THIS REPORT FOR: cc: Carlos Ramirez MD, John MD Couchonnal,John Soto MD ~ THIS REPORT FOR: //name// [facility] ED Test Date: 2019-10-26 Test Time: 01:57:15 Pat Name: RUT GUTHRIE Department: Room: 249 Gender: F Senior Medical Technologist: rosalva : 1940 Requested By: Logan Beebe Order Number: [id number] MD: John Chandra Measurements Intervals [place] Rate: 105 P: 6 IL: 120 QRS: -11 QRSD: 88 T: 38 QT: 367 QTc: 486 Interpretive Statements Sinus tachycardia Inferior infarct, old No previous ECG available for comparison Electronically Signed On 10-26-2019 8:14:16 CDT by John Chandra [email or web address] <ELECTRONICALLY SIGNED> By: John Chandra MD 10/26/19813 6 6 John Chandra MD /ANN
[2019-10-26 09:00] LABS: ABSOLUTE NEUTROPHILS 20.8 thou/uL (1.4-8.2); ANISOCYTOSIS 1+; NUCLEATED RBCS 1 /100WBC
--- NOTE | 2019-10-26 09:25 | P ---
[facility] [place] [address] PROCEDURE REPORT Name: RUT GUTHRIE Room #: 249-P ADM IN M.R.#: [id number] Admission: 10/26/19 Attend Phys: Erin Main MD Discharge: Date of : 40 Report #: [id number] THIS REPORT FOR: cc: Carlos Ramirez MD, John MD McElhinney, Christian C. MD ~ CC: Melvin Chavis DATE OF SERVICE: 10/26/2019 PROCEDURE PERFORMED: Upper endoscopy with bleeding control. HISTORY OF PRESENT ILLNESS: The patient is a 79-year-old female presented to the Emergency Room this morning with coffee-ground emesis, significant hypotension, weakness, was intubated emergently in the ER due to throwing up clots to protect her airway. NG is in place with bright red blood. Admit hemoglobin was 6.0. The patient has received 1 unit of packed cells and has a second unit transfusing at this time, remains hypotensive despite volume resuscitation and pressors at this time. Plan is for emergent upper endoscopy. DESCRIPTION OF PROCEDURE: The risks and benefits of the procedure were explained to the patient's son, those risks including but not limited to bleeding, perforation, the risk of sedation. He understood these risks and gave informed consent. The procedure was performed in the operating room. Anesthesia was present. Again, the patient had already been intubated in the Emergency Room. Next, using a therapeutic Olympus upper endoscope, the scope was placed in the patient's mouth and advanced under direct vision through the esophagus. As I entered the esophagus, there was bright red blood in the esophagus, but no obvious bleeding abnormalities were seen. Upon entering the stomach, a large fresh clot and bright red blood was noted in the fundus and upper body. There was a clot extending through the pylorus. I was able to advance the scope through the pylorus and multiple washings and aspirations were performed. Two ulcers were noted in the duodenum, the first being the smaller ulcer approximately 1.5 cm. There was a small red dot but no active bleeding or visible vessel. This was located in the duodenal bulb. The second very large ulcer had a very complex clot noted. This involved the entire first and second portion of the duodenum. Most of the diameter of the duodenum, was at least 3-4 cm in size. There was evidence of fresh clot and some active oozing. I injected this area with a total of 3 mL of epinephrine. No further bleeding was noted. I was able to advance the scope carefully beyond this area and no other [facility] [address] [place] [address] PROCEDURE REPORT Name: RUT GUTHRIE Room #: 249-P [facility] IN M.R.#: [id number] Admission: 10/26/19 Attend Phys: Erin Main MD Discharge: Date of : 40 Report #: [id number] ulcerations were noted, but visualization was somewhat limited due to bright red blood and clots in these areas. The scope was then brought back up into the large ulcer area. Again, no active bleeding was noted after epinephrine injection. This was not something that could be cauterized or I did not feel like a clip or clips would be helpful in this situation due to the large size of the ulcer and clot and the fact that it had stopped bleeding at this point after epinephrine. At this point, the scope was then withdrawn and the procedure terminated. The patient tolerated the procedure well. IMPRESSION: 1. Large duodenal ulcer involving the first and second portion of the duodenum with a large clot. There was active oozing. This was injected with 3 mL of epinephrine. No further bleeding was noted. 2. Smaller more clean white based ulcer in the duodenal bulb. 3. Large amount of blood and clot within the stomach. RECOMMENDATIONS: Continue transfusing packed red cells and monitoring hemoglobin closely. Continue PPI drip. We will also consult General Surgery if the patient has rebleeding in the future, may require surgery as endoscopically. I do not think clips or cautery would be helpful. The patient is to be transferred to the ICU. Thank you for allowing me to participate in her care. <ELECTRONICALLY SIGNED> By: Andrew Donato MD 10/26/19 0925 0527 0542 Andrew Donato MD /nt
--- NOTE | 2019-10-26 09:25 | HC ---
[facility] [place] [address] CONSULTATION Name: RUT GUTHRIE Abel Room #: 249-P [facility] IN ..#: [id number] Admission: 10/26/19 Attend Phys: Erin Main MD Discharge: Date of : 40 Report #: [id number] THIS REPORT FOR: cc: Carlos Ramirez MD, John MD McElhinney, Christian C. MD ~ CC: Xavier Chavis MD DATE OF SERVICE: 10/26/2019 HISTORY OF PRESENT ILLNESS: This patient is a 79-year-old female who was evaluated in the Emergency Room for nausea and vomiting, noted to have coffee-ground emesis at that time, was feeling weak. She was hypotensive and tachycardic. I received a call from Dr. Arzate. Nasogastric tube was placed. Initially, it was dark material that was returned; later, bright red blood was returned through the aspirate. The patient's hemoglobin on admission was 6.0; the last hemoglobin to compare was from 10/05 at 8.9. Her son is present. No previous history of GI bleed. The patient has a history of significant lymphedema and was hospitalized in late September. The patient was given IV fluids, continued to have significant hypotension, started vomiting around the nasogastric tube and was intubated emergently in the Emergency Room. Upon my arrival, her blood pressure was 80/50s, tachycardic in the 110s, she was mildly sedated. PAST MEDICAL HISTORY: Chronic lymphedema of the lower extremities, hypertension, non-insulin dependent diabetic, history of dementia, previous hysterectomy and cholecystectomy. MEDICATIONS: Folic acid, vitamin B12, doxycycline, Xanax, hydroxyzine, verapamil, Benicar, Bystolic, Crestor, aspirin 81 mg, metformin and hydrocodone/acetaminophen. ALLERGIES: DILTIAZEM. FAMILY HISTORY: Unknown. SOCIAL HISTORY: Unknown. REVIEW OF SYSTEMS: Unobtainable. PHYSICAL EXAMINATION: VITAL SIGNS: Temperature on arrival to the Emergency Room was 97.6, pulse is in [address] [address] CONSULTATION Name: RUT GUTHRIE Room #: 249-P [facility] IN [facility].#: [id number] Admission: 10/26/19 Attend Phys: Erin Main MD Discharge: Date of : 40 Report #: [id number] the 110s, respiratory rate is 15, blood pressure 80s/60s. She is on Levophed. GENERAL: She is pale. HEENT: Sclerae nonicteric. A nasogastric tube is in place with bright red blood. The patient is intubated. CARDIOVASCULAR: Regular rhythm, tachycardic. CHEST: Clear to auscultation anteriorly bilaterally. ABDOMEN: Soft, nondistended. EXTREMITIES: Significant chronic lymphedema of the lower extremities bilaterally. Her distal toes are pale. LABORATORY DATA: Sodium 142, potassium 4.1, chloride 103, bicarbonate 20, BUN 33, creatinine is 1.7, glucose 121, AST 157, lipase 122, total bilirubin 0.7, alkaline phosphatase 171, ALT is 63. Albumin 1.8. INR 1.4. CRP is 56.5. WBC 16.2, hemoglobin 6.0, platelet count 279. ASSESSMENT AND PLAN: Severe upper gastrointestinal bleed. The patient was hypotensive, was intubated emergently. She is on pressors at this time. No previous history of gastrointestinal bleed. She has now received 1 unit of packed cells; a second unit of packed cells is currently being transfused. She has also been given 3 liters of IV fluids and remains hypotensive. Because of this, would recommend emergent upper endoscopy. I discussed this with the son and he agrees. The patient is also on a Protonix drip. We will make further recommendations after endoscopy. Thank you for allowing me to participate in her care. <ELECTRONICALLY SIGNED> By: Andrew Donato MD 10/26/19 0925 0521 0540 Andrew Donato MD /nt
[2019-10-26 12:47] LABS: HEMATOCRIT 22.6 % (37.0-47.0); HEMOGLOBIN 7.6 gm/dL (12.0-15.0)
[2019-10-26 12:59] LABS: CALCIUM 6.5 mg/dL (8.5-10.1); CREATININE 1.2 mg/dL (0.6-1.0); MAGNESIUM 1.2 mg/dL (1.8-2.4); PHOSPHORUS 3.5 mg/dL (2.5-4.9); POTASSIUM 3.6 mmol/L (3.5-5.1)
[2019-10-26 13:15] LABS: INR 1.9; PROTIME 19.7 Seconds (9.3-11.4)
[2019-10-26 13:20] LABS: FIBRINOGEN 111.1 mg/dL (210-360)
[2019-10-26 13:20] LABS: BE(vivo) -1.7 mmol/L (-2 to +3); HCO3 22.8 mmol/L (22.0-26.0); PCO2 37.1 mmHg (35.0-45.0); PO2 117.8 mmHg (80.0-100.0); pH 7.406 (7.360-7.450); sO2 98.3 % (92.0-98.0)
[2019-10-26 13:23] LABS: APTT 41.5 Seconds (24.5-32.8)
--- NOTE | 2019-10-26 13:51 | NUR ---
PT WAS VERY UNSTABLE THIS MORNING WHEN THIS RN CAME ON SHIFT. PT HAD BRIGHT RED BLOOD COMING FROM NGT. PT BLOOD PRESSURE WAS IN THE 60S SYSTOLIC WITH LEVOPHED RUNNING AT 30 MCGS/MIN. PT WAS GETTING CENTRAL LINE INSERTED BY ANESTHESIA. PT HAD RIGHT EJ PIV, LEFT WRIST AND LEFT FA PIV. LEFT RADIAL A LINE. PT INTUBATED, NOT ON ANY SEDATION AT THE TIME. PHARMACY SENDING VASOPRESSIN AND QUAD STRENGTH LEVO. ALBUMIN WAS INFUSING. VASOPRESSIN WAS STARTED AND LEVOPHED CHANGED TO QUAD STRENGTH ON PUMP. PT CONTINUED TO BE HYPOTENSIVE, EPINEPHERINE WAS STARTED. DR OSORIO WAS CALLED WITH ALL CRITICAL RESULTS AND MASSIVE TRANSFUSION ORDERS WERE INITIATED. PT WAS THEN TITRATED DOWN THROUGHOUT THE DAY OFF OF VASOPRESSORS. AT THE TIME OF THIS NOTE PT IS ONLY ON 0.01 UNITS/MIN OF VASOPRESSIN WHICH DR OSORIO IS AWARE OF. PT HAS GOTTEN MULTIPLE BLOOD PRODUCTS TODAY. DR OSORIO STATES TO GIVE ONE MORE UNIT PRBC AND 5 POOL OF CRYO. PT IS ALSO GOING TO GET A DOSE OF LASIX. PT RHYTHM HAS BEEN STABLE EXCEPT FOR ONE SHORT INCIDENT WHERE THE PT WAS BRADYCARDIC IN THE 40S BUT QUICKLY RECOVERED. PT HAS BEEN HAVING COPIOUS AMOUNTS OF DARK BLOODY STOOL TODAY, THE STOOL IS JUST POURING OUT WHEN PT IS MOVED AT ALL. RECTAL TUBE WAS INSERTED. PT WAS CLEANED UP AND WOUNDS WERE CLEANED. DR FORMAN CAME TO SEE PT, HE STATES HE WILL PUT ORDERS IN FOR WOUND CARE. PT ALSO HAD PINEDA INSERTED. PT LEFT FOREARM IV LEAKING AND WAS REMOVED.
--- NOTE | 2019-10-26 15:33 | NUR ---
Case opened to follow for dc planning. Pt is currently in ICU, intubated and on pressure support. Pt admitted from home d/t sepsis and upper GI bleed. Emergent EGD earlier today. Pt known to from recent dc to home 10/09/19 with hh per Allan RODRIGUEZ. Allan notified of the pt's admission. Pt's son Gus and dtr Katie were both here and updated per PAD CUTTER. The pt lives with Gus and normally uses a rwalker for gait, no steps in the home and is followed by Dr. Hanson in the wound clinic. Pt remains in critical condition. DC timeframe and needs are uncertain. Will follow along.
--- NOTE | 2019-10-26 17:16 | NUR ---
PT SON CALLED, UPDATE GIVEN. DR OROZCO HERE TO SEE PT. HE IS GOING TO CALL SON
[2019-10-26 18:05] LABS: DIRECT BILIRUBIN 0.5 mg/dL (<0.1-0.2); TOTAL BILIRUBIN 1.5 mg/dL (0.2-1.0); TOTAL PROTEIN 3.9 g/dL (6.4-8.2)
--- NOTE | 2019-10-26 18:22 | NUR ---
TD BILLY REAPPLIE, PT GETTING COOL AGAIN.
[2019-10-26 19:32] LABS: HEMATOCRIT 20.4 % (37.0-47.0); HEMOGLOBIN 7.1 gm/dL (12.0-15.0)
[2019-10-26 21:48] LABS: URINE BILIRUBIN NEGATIVE (Negative); URINE BLOOD 3+ (Negative); URINE CLARITY CLEAR; URINE COLOR YELLOW; URINE GLUCOSE-RANDOM* NEGATIVE (Negative); URINE KETONES NEGATIVE (Negative); URINE LEUKOCYTES-REFLEX 1+ (Negative); URINE NITRITE-REFLEX NEGATIVE (Negative); URINE PROTEIN (DIPSTICK) NEGATIVE (Negative); URINE SPECIFIC GRAVITY 1.015 (1.005-1.035); URINE UROBILINOGEN 0.2 E.U./dl (0.2-1.0)
[2019-10-26 22:04] LABS: BACTERIA-REFLEX None Seen /HPF (None Seen); CRYSTALS None Seen /LPF (None Seen); HYALINE CASTS 0-3 Few /LPF (None Seen); MUCUS None Seen strn/LPF (None Seen); SQUAMOUS None Seen /LPF (0-3); URINE RBC 3-10 Few /HPF (0-2); URINE WBC-REFLEX 0-5 Rare /HPF (0-5)
[2019-10-26 23:48] LABS: HEMOGLOBIN 7.1 gm/dL (12.0-15.0); WBC 10.3 thou/uL (4.0-11.0)
[2019-10-26 23:50] LABS: ABSOLUTE NEUTROPHILS 8.7 thou/uL (1.4-8.2); BASOPHILS 0.3 % (0.0-2.0); HEMATOCRIT 20.4 % (37.0-47.0); LYMPHOCYTES 13.7 % (24.0-44.0); MCH 30.3 pg (26.0-34.0); MCHC 34.9 g/dL (28.0-37.0); MONOCYTES 1.9 % (1.0-8.0); POLYS 84.1 % (36.0-66.0); RBC 2.36 mil/uL (4.20-5.00); RDW 15.3 % (10.5-14.5)
[2019-10-26 23:51] LABS: MCV 86.7 fL (80.0-100.0)
[2019-10-26 23:53] LABS: PLATELET COUNT 66 thou/uL (150-400)
[2019-10-27] VITALS (52 sets, daily range): BP systolic 94–155; BP diastolic 35–69
[2019-10-27 00:02] LABS: CALCIUM 7.2 mg/dL (8.5-10.1)
--- NOTE | 2019-10-27 02:18 | NUR ---
ASSUMED CARE OF PATIENT AT 1900. REPORT RECIEVED FROM DAY RN. VITALS CLOSELY MONITORED. ELECTROLYTES AND BLOOD GIVEN ORDERED. CONTINUES TO REQUIRE MINIMAL SEDATION. OFF ALL BLOOD PRESSURE SUPPORT. THIS RN CALLED SON AT 0 TO UPDATE. DISCUSSED POC. HE STATES THERE IS NOT A TECHNICAL DPOA OR ADVANCED DIRECTIVE BUT THERE MAY BE A LIVING WILL. ALL QUESTIONS ANSWERED, SON VERBALIZES UNDERSTANDING. ALSO REVIEWED VISITATION POLICY WELL. POC GOALS UPDATED. MONITORING VERY CLOSELY.
[2019-10-27 05:26] LABS: BE(vivo) -0.7 mmol/L (-2 to +3); HCO3 23.7 mmol/L (22.0-26.0); PCO2 37.5 mmHg (35.0-45.0); PO2 87.3 mmHg (80.0-100.0); pH 7.418 (7.360-7.450); sO2 96.8 % (92.0-98.0)
[2019-10-27 05:57] LABS: ABSOLUTE NEUTROPHILS 11.1 thou/uL (1.4-8.2); BASOPHILS 0.1 % (0.0-2.0); HEMATOCRIT 24.4 % (37.0-47.0); HEMOGLOBIN 8.4 gm/dL (12.0-15.0); LYMPHOCYTES 10.8 % (24.0-44.0); MCHC 34.5 g/dL (28.0-37.0); MCV 86.8 fL (80.0-100.0); MONOCYTES 2.7 % (1.0-8.0); PLATELET COUNT 67 thou/uL (150-400); POLYS 86.4 % (36.0-66.0); RBC 2.81 mil/uL (4.20-5.00); RDW 15.5 % (10.5-14.5); WBC 12.8 thou/uL (4.0-11.0)
[2019-10-27 06:07] LABS: DIRECT BILIRUBIN 0.4 mg/dL (<0.1-0.2); TOTAL BILIRUBIN 1.1 mg/dL (0.2-1.0)
[2019-10-27 06:11] LABS: CALCIUM 7.2 mg/dL (8.5-10.1); POTASSIUM 3.3 mmol/L (3.5-5.1); TOTAL BILIRUBIN 1.1 mg/dL (0.2-1.0); TOTAL PROTEIN 4.2 g/dL (6.4-8.2)
[2019-10-27 10:17] LABS: HEMATOCRIT 24.8 % (37.0-47.0); HEMOGLOBIN 8.6 gm/dL (12.0-15.0)
--- NOTE | 2019-10-27 15:29 | NUR ---
Tried contacting patients son, Gus, to inform him we were retesting patient for COVID and therefore he could not visit. Patient did not check phone and came to visit patient. Nurse allowed son to stand outside patients door and updated him on patients status and plan of care. Patient is still requiring heavy mechanical assistance and is still putting out blood in her NG tube. Patient is therefore not progressing towards goals.
--- NOTE | 2019-10-27 19:22 | NUR ---
RECEIVED REPORT FROM MANOJ SEXTON. ASSUMED PATIENT CARE.
[2019-10-27 21:40] LABS: POTASSIUM 3.4 mmol/L (3.5-5.1)
[2019-10-28] VITALS (94 sets, daily range): BP systolic 104–170; BP diastolic 37–85
[2019-10-28 05:36] LABS: GLYCOHEMOGLOBIN (HGB A1C) 5.4 % (4.8-5.6)
[2019-10-28 06:20] LABS: ABSOLUTE NEUTROPHILS 11.7 thou/uL (1.4-8.2); BASOPHILS 0.2 % (0.0-2.0); EOSINOPHILS 0.2 % (0.0-3.0); HEMATOCRIT 27.5 % (37.0-47.0); HEMOGLOBIN 9.4 gm/dL (12.0-15.0); LYMPHOCYTES 9.5 % (24.0-44.0); MCHC 34.1 g/dL (28.0-37.0); PLATELET COUNT 75 thou/uL (150-400); POLYS 87.1 % (36.0-66.0); RBC 3.13 mil/uL (4.20-5.00); RDW 15.9 % (10.5-14.5); WBC 13.5 thou/uL (4.0-11.0)
[2019-10-28 06:45] LABS: CALCIUM 7.3 mg/dL (8.5-10.1); CREATININE 0.8 mg/dL (0.6-1.0); POTASSIUM 3.7 mmol/L (3.5-5.1)
--- NOTE | 2019-10-28 11:30 | NUR ---
CPAP TRIAL [id number] HEART RATE RANGED FROM 40BPM- 80 BPM, PER CARDIAC CONTINUOUS MONITORING. RESPIRATORY RATE RANGED FROM 12 BPM- 18 BPM, PER VENTILATOR MONITORING. BLOOD PRESSURE RANGE 120'S-160'S, PER CARDIAC BLOOD PRESSURE MONITORING. PATIENT DENIED SHORTNESS OF AIR, NO USE OF ACCESSORY MUSCLES, NO EVIDENCE OF SHORTNESS OF AIR. NO ABG DRAWN, PATIENT WAS RESTLESS AND GRIMACING WITH LIGHTENING OF SEDATION. PER RT AND RN, PATIENT RETURNED TO PREVIOUS VENT SETTINGS.
--- NOTE | 2019-10-28 14:30 | NUR ---
NURSE TALKED WITH PATIENTS SON AND UPDATED HIM ON PATIEN PLAN OF CARE, CURRENT CONDITION- STABLE, AND GOALS. HE ASKED ABOUT INITIATING TPN, NURSE EXPRESSED THAT THIS INFORMATION WAS RELAYED TO DR. CRAWFORD THIS MORNING, NO PLAN FOR STARTING TPN TODAY. WILL RE-EVALUATE NEED FOR TPN TOMORROW.
--- NOTE | 2019-10-28 16:00 | NUR ---
NURSE TALKED WITH DR. CRAWFORD IN REGARDS TO PATIENTS PLAN OF CARE THIS MORNING WHEN HE ROUNDED. ADJUSTMENTS TO IV FLUIDS NOTED, GEL TEARS CHANGED TO PRN, AND NURSE REVIEWED LABS WITH DR. CRAWFORD. NURSE ALSO TALKED WITH DR. CRAWFORD ABOUT FAMILY WISHES TO START TPN. NO NEW ORDERS FOR TPN AT THIS TIME. NURSE TALKED WITH DR. ROMO ON HIS ROUNDS. HE EXPRESSED HE IS AWARE OF PATIENT TOLERATING CPAP TRIAL THIS MORNING. NO PLANS FOR ABG OR EXTUBATION TODAY. PLAN IS TO CONTINUE TO MONITOR FOR SIGNS OF BLEEDING AND GET INTERVENTIONAL RADIOLOGIST OPINION ON PATIENTS NEEDS. NO NEW BLEEDING NOTED TODAY AND THIS WAS INFORMED TO DR. CRAWFORD. SURGICAL PHYSICIAN ROUNDED ON PATIENT. PHYSICIAN WAS UPDATED ON PATIENT CONDITION, VITAL SIGNS STABLE, ON THE MORE HYPERTENSIVE SIDE, BRADYCARDIA, MINIMAL OUTPUT IN NG TUBE OF PINKISH RED OUTPUT, MINIMAL LIQUID DARK STOOLS IN FECAL MANAGEMENT SYSTEM, CPAP TRIAL FOR 4 HOURS, PATIENT DENIES PAIN. PER SURGICAL PHYSICIAN, HE EXPRESSED WILL CONTINUE TO MONITOR FOR SIGNS OF BLEEDING. IF BLEEDING NOTED WILL CALL IR FOR INTERVENTION. IF NO BLEEDING NOTED, WILL WORK ON WEANING OFF VENT.
--- NOTE | 2019-10-28 17:30 | NUR ---
Viki kurtz placed this morning as a temp was unable to be obtained. This was informed to Dr. Burton. Further temps were obtained throughout the day. This evening she nodded yes to being warm and was attempting to pull blanket warmer off of herself. Nurse turned off machine and removed a blanket. Patients skin was much warmer. Nurse to continue to monitor patient status.
--- NOTE | 2019-10-28 19:30 | NUR ---
1899-RECEIVED REPORT FROM SHAHEED SEXTON. ASSUMED PATIENT CARE.
--- NOTE | 2019-10-28 19:30 | NUR ---
Progress note: Patient progressing towards plan of care. Patient able to cpap trial today for four hours, see note. Per Dr. Echols, continue to monitor for bleeding, no extubation today. Patient had scant amount of output from NG tube, that was pink in color. Scant amount of output from fecal management system, that is liquid and dark in color. Both not mearsurable. Labs were noted. Per Dr. Funez if covid negative tonight then we may discontinue isolation. Report given to loom setter fourdrinier RN for continuation of care. Plan of care is to continue to monitor vital signs, monitor for signs of bleeding, and monitor urine output that has noted in the last hour to trail off with output at 15ml.
[2019-10-29] VITALS (52 sets, daily range): BP systolic 114–182; BP diastolic 41–94
[2019-10-29 05:36] LABS: HEMATOCRIT 27.7 % (37.0-47.0); HEMOGLOBIN 9.5 gm/dL (12.0-15.0); MCH 30.6 pg (26.0-34.0); MCHC 34.4 g/dL (28.0-37.0); MCV 88.8 fL (80.0-100.0); RBC 3.12 mil/uL (4.20-5.00); RDW 15.9 % (10.5-14.5); WBC 11.6 thou/uL (4.0-11.0)
[2019-10-29 05:39] LABS: CALCIUM 7.6 mg/dL (8.5-10.1); CREATININE 0.8 mg/dL (0.6-1.0); POTASSIUM 3.6 mmol/L (3.5-5.1)
[2019-10-29 05:46] LABS: ALBUMIN 1.9 g/dL (3.4-5.0); DIRECT BILIRUBIN 0.2 mg/dL (<0.1-0.2); TOTAL BILIRUBIN 0.7 mg/dL (0.2-1.0); TOTAL PROTEIN 4.4 g/dL (6.4-8.2)
--- NOTE | 2019-10-29 09:14 | NUR ---
pt intubated and sedated lightly. pt with bile colored drainage from ngt. pt left foot wound changed per order. protonix, versed and ivf infusing.
--- NOTE | 2019-10-29 17:55 | NUR ---
CHANGING PT WOUND DRESSINGS PER NEW PHYSICIAN ORDERS, DO NOT HAVE THE ZGUARD, REQUESTED IT FROM CS. PT DOES HAVE SACRAL FOAM DRESSING ON THOUGH. PT HAS A LOT OF PAIN WHEN TOUCHING LEGS, MORPHINE WAS GIVEN PRIOR TO DRESSING CHANGES.
[2019-10-30] VITALS (28 sets, daily range): BP systolic 115–176; BP diastolic 48–97
--- NOTE | 2019-10-30 04:48 | NUR ---
Assumed pt care at 1900. Pt is sedated and unable to verbalize. Pt is stable. Upon assessment, heart rate became raudel (30's). Due to the low heart rate, the precedex that was infusing was stopped and pt's heart rate was stable and back to normal. Assessment completed and documented. Pt is stable. Scheduled meds administered to pt.No acute events overnight. Continue to monitor. No further needs at this time.
[2019-10-30 05:38] LABS: HEMATOCRIT 30.9 % (37.0-47.0); HEMOGLOBIN 10.5 gm/dL (12.0-15.0); MCH 30.4 pg (26.0-34.0); MCV 89.6 fL (80.0-100.0); RBC 3.45 mil/uL (4.20-5.00); RDW 15.3 % (10.5-14.5); WBC 16.1 thou/uL (4.0-11.0)
[2019-10-30 05:46] LABS: MAGNESIUM 1.5 mg/dL (1.8-2.4); PHOSPHORUS 2.3 mg/dL (2.5-4.9)
[2019-10-30 06:03] LABS: ALBUMIN 2.1 g/dL (3.4-5.0); CALCIUM 7.6 mg/dL (8.5-10.1); CREATININE 0.9 mg/dL (0.6-1.0); POTASSIUM 3.5 mmol/L (3.5-5.1); TOTAL BILIRUBIN 0.6 mg/dL (0.2-1.0); TOTAL PROTEIN 4.6 g/dL (6.4-8.2)
--- NOTE | 2019-10-30 09:59 | HC ---
[facility] [place] [place] [address] CONSULTATION Name: RUT GUTHRIE Room #: 249-P [facility] IN M.R.#: [id number] Admission: 10/26/19 Attend Phys: Erin Main MD Discharge: Date of : 40 Report #: [id number] THIS REPORT FOR: cc: Carlos Ramirez MD,Carlos Hanson,Abdifatah Cervantes MD ~ CC: Carlos Main DATE OF SERVICE: 10/26/2019 CHIEF COMPLAINT: Bilateral lower extremity ulcerations. HISTORY OF PRESENT ILLNESS: This is a 79-year-old female patient with whom I am familiar from outpatient evaluation, who is admitted to the hospital with GI bleeding. I received a call from her son at about 1 o'clock this morning, indicating that she was having pain in her feet and that some of the eschar on her foot had fallen off and she was concerned that she would need to be seen soon. He noted to me that she was having quite a bit of pain in her lower extremities and I advised him to go to the Emergency Department, which they did. Apparently, upon arrival in the Emergency Department, she had developed hematemesis, had significant GI bleeding. She was subsequently intubated and is placed in ICU. The patient is not able to provide any information currently as she is sedated on a ventilator. PAST MEDICAL HISTORY: Positive for hypertension, diabetes mellitus, chronic lymphedema, dementia, insomnia, previous hysterectomy and hyperlipidemia. MEDICATIONS: Include folic acid, ergocalciferol, doxycycline, nystatin, alprazolam, benazepril, hydralazine, verapamil, Benicar, Bystolic, Crestor, aspirin, Glucophage. ALLERGIES: DILTIAZEM. REVIEW OF SYSTEMS: Not obtainable at this point in time due to the patient being sedated on ventilator. She remains on pressor support. PHYSICAL EXAMINATION: VITAL SIGNS: Include temperature 97.6, pulse 107, respiratory rate 12, blood pressure of 94/39. GENERAL: This is a chronically ill-appearing female patient who is currently sedated and intubated. HEENT: Head normocephalic. NECK: Supple. LUNGS: Clear. HEART: Regular rhythm. [facility] [address] [place] [address] CONSULTATION Name: RUT GUTHRIE Room #: 249-P [facility] IN [facility].#: [id number] Admission: 10/26/19 Attend Phys: Erin Main MD Discharge: Date of : 40 Report #: [id number] ABDOMEN: Soft. EXTREMITIES: The sacral gluteal region demonstrates stage 3 pressure ulcerations to the buttocks bilaterally. These are unchanged since prior evaluation. Lower extremities demonstrate lymphedema and some mild erythema bilaterally. There is increased swelling since the time I last saw her, which was about a week ago. The patient has a new blistering to the left posterior heel as well as the right posterolateral portion of the foot, large ulceration on the lateral left foot still remains present with a mix of granulation and fibrin. CLINICAL IMPRESSION: 1. Lymphedema, bilateral lower extremities with mild cellulitis. 2. Gastrointestinal bleeding, currently receiving massive transfusion protocol. 3. Diabetic foot ulcerations of both feet with new areas of pressure ulceration and blistering to the right lateral foot and left posterior heel. 4. Hypertension. 5. Acute hypoxic respiratory failure. 6. Severe sepsis and shock. 7. Stage 3 pressure ulcerations to the buttocks bilaterally. RECOMMENDATIONS: We will recommend moisture barrier cream to the sacral region, low air loss mattress, every 2 hour turning positioning. Recommend PRAFO boots for pressure prophylaxis. I have placed these on her myself. We will recommend Dakin's moist gauze to the left lateral foot. Xeroform to the areas of blister and gentle compression with Kerlix and Federico to the lower extremities. Empiric antibiotic therapy. She has been seen by GI and may require surgical intervention regarding the bleeding duodenal ulcers. I appreciate being asked to see the patient in consultation. <ELECTRONICALLY SIGNED> By: Abdifatah Hanson MD 10/30/19 0959 1420 1451 Abdifatah Hanson MD /nt
[2019-10-30 10:47] LABS: BE(vivo) -4.6 mmol/L (-2 to +3); HCO3 20.5 mmol/L (22.0-26.0); PCO2 37.8 mmHg (35.0-45.0); pH 7.352 (7.360-7.450); sO2 97.4 % (92.0-98.0)
--- NOTE | 2019-10-30 11:11 | NUR ---
chart review. noted wean cpap trials. tube feed for nutritional support. cont ppi gtts. will cont following as needed for dc needs.
--- NOTE | 2019-10-30 18:51 | NUR ---
ASSUMED PT CARE AT 0700. WAS ON AC@30, CPAP TRIALS DONE AT 1005, ABG 1047, PATIENT EXTUBATED AT 1100. CURRENTLY ON 3LITERS O2 NC, SATO2 100% AND PROGRESSING WELL. PT ON PRECEDEX @ 0.2 DUE TO ANXIETY AND ATTEMPTS TO PULL OUT NG AND NC. RESTRAINTS IN PLACE. DOCUMENTATION COMPLETE FAMILY AT BEDSIDE DURING SHIFT.
[2019-10-31] VITALS (28 sets, daily range): BP systolic 101–178; BP diastolic 51–94
[2019-10-31 05:36] LABS: HEMATOCRIT 28.6 % (37.0-47.0); HEMOGLOBIN 9.7 gm/dL (12.0-15.0); MCH 30.5 pg (26.0-34.0); MCV 89.8 fL (80.0-100.0); RBC 3.18 mil/uL (4.20-5.00); RDW 15.7 % (10.5-14.5); WBC 10.6 thou/uL (4.0-11.0)
[2019-10-31 05:58] LABS: CALCIUM 7.3 mg/dL (8.5-10.1); CREATININE 0.6 mg/dL (0.6-1.0); MAGNESIUM 1.9 mg/dL (1.8-2.4); PHOSPHORUS 2.4 mg/dL (2.5-4.9); POTASSIUM 3.1 mmol/L (3.5-5.1)
--- NOTE | 2019-10-31 11:02 | NUR ---
Assumed patient's care at 0700. pt awake and alert but not to be usine accessory mucles to breath, tachy and BP up in the 170s. O2 inreased to 3 lit NC, DR. Burton notified of changes. new orders given and implemented. Dr. shields notified breathing issue/ possible airway irritation. new orders for Rasemic Epinephrine x1, STAT CXR, AND Solumedrol 125mg IV X1 given and completed. CXR shows Atelectasis, Nitin. infiltrates, and pleural effusion. Attempted IS- PATIENT DID 250 AT BEST.
--- NOTE | 2019-10-31 12:08 | NUR ---
Dr. Echols called re pt remians short of air. Wanted to discuss xray results. Awaiting call back.
[2019-10-31 14:12] LABS: HEMATOCRIT 30.9 % (37.0-47.0); HEMOGLOBIN 10.6 gm/dL (12.0-15.0)
--- NOTE | 2019-10-31 19:16 | NUR ---
Patient complaints that she can't breath, oxygen down to 7os, placed on the BIPAP. Now sato2 99%. precedex drip restated d/t restlessness, anxiety and to assist with BIPAP tolerance.
--- NOTE | 2019-10-31 20:10 | NUR ---
PATIENT SLEEPING UNDER LIGHT SEDATION. PRECEDEX DRIP AT 0.4, ON BIPAP @ 40% FIO2. NOT PROGRESSING WELL TOWARD GOALS D/T NEW NEED FOR BIPAP TODAY AND HYPERTENSIVE AT TIMES
[2019-11-01] VITALS (18 sets, daily range): BP systolic 128–164; BP diastolic 64–88
--- NOTE | 2019-11-01 06:00 | NUR ---
A VERY DELIGHTFUL LITTLE LADY! AWake and alert. FOLLOWS COMANDS. ORIENTED X 2 1300 CC UO THIS SHIFT. REMAINS ON BIPAP AT 30 % O2 LUNGS ESS CLEAR ABDOMEN REMAINS VERY LARGE AND DISTENDED. ALL DRESSINGS ARE INTACT. WILL CONBT TO MONITOR.
[2019-11-01 06:03] LABS: HEMATOCRIT 27.4 % (37.0-47.0); HEMOGLOBIN 9.1 gm/dL (12.0-15.0); MCH 30.1 pg (26.0-34.0); MCHC 33.4 g/dL (28.0-37.0); MCV 90.1 fL (80.0-100.0); RBC 3.04 mil/uL (4.20-5.00); RDW 16.1 % (10.5-14.5); WBC 10.5 thou/uL (4.0-11.0)
[2019-11-01 06:14] LABS: CALCIUM 7.2 mg/dL (8.5-10.1); CREATININE 0.6 mg/dL (0.6-1.0); POTASSIUM 3.1 mmol/L (3.5-5.1)
[2019-11-01 08:46] LABS: MAGNESIUM 1.7 mg/dL (1.8-2.4); PHOSPHORUS 2.1 mg/dL (2.5-4.9)
--- NOTE | 2019-11-01 15:17 | NUR ---
ASSUMED CARE @ 0700 11/01/19, PT ASSESSMENTS AND VSS COMPLETE PER ICU PROTOCOL. PT ENCOUNTERED ON PRECEDEX FOR BIPAP MANAAGEMENT. 1115 PT SWITCHED TO FACE-SHIELD,ALTHOUGH 02 SATS MAINTAINED INT HE HIGH 90'S, PT STARTS TO GET VERY ANXIOUS, PRECEDEX GTT INCREASED TO HELP TOLERATE. DR ROMO AND DR CRAWFORD @ BEDSIDE THIS AM ORDERS RECIEVED AND EXECUTED. SUNDAY [employer]AL[employer] ASSURANCE ASSOCIATE @ BEDSIDE DURING THIS SHIFT ORDERS RECIEVED TO DC NG TUBE, NO COMPLCATIONS NOTED. SON FLAVIA @ BEDSIDE @ 0072, CONCERNS EXPRESSED AND THIS WAS COMMUNICATED TO DR CRAWFORD AND DR VALDEZ.
[2019-11-01 15:46] LABS: MAGNESIUM 1.9 mg/dL (1.8-2.4); POTASSIUM 3.8 mmol/L (3.5-5.1)
[2019-11-02] VITALS (18 sets, daily range): BP systolic 121–174; BP diastolic 60–92
[2019-11-02 07:01] LABS: HEMATOCRIT 27.6 % (37.0-47.0); HEMOGLOBIN 9.1 gm/dL (12.0-15.0); MCHC 33.1 g/dL (28.0-37.0); MCV 90.7 fL (80.0-100.0); RBC 3.04 mil/uL (4.20-5.00); RDW 15.9 % (10.5-14.5); WBC 11.5 thou/uL (4.0-11.0)
[2019-11-02 07:19] LABS: MAGNESIUM 1.9 mg/dL (1.8-2.4); PHOSPHORUS 2.4 mg/dL (2.5-4.9)
[2019-11-02 07:20] LABS: ALBUMIN 1.8 g/dL (3.4-5.0); CALCIUM 7.3 mg/dL (8.5-10.1); CREATININE 0.6 mg/dL (0.6-1.0); POTASSIUM 3.6 mmol/L (3.5-5.1); TOTAL BILIRUBIN 0.5 mg/dL (0.2-1.0); TOTAL PROTEIN 4.3 g/dL (6.4-8.2)
--- NOTE | 2019-11-02 08:27 | NUR ---
PT AWAKE AND ALERT. GETS ANXIOUS AT TIMES MORPHINE 1 MG IV GIVEN X 2 TONIGHT FOR COMFORT. REMAINS ON PRECEDEX GTT AT 0.8 MCG. ALL WOUND DRESSING DRY AND INTACT. CHANGED ON DAY SHIFT 10/31 BIPA 40 %. 800 CC UO THIS SHIFT. A VERY DELIGHTFUL LITTLE LADY. ALWAYS SMILING AND THANKING US FOR HER CARE PROGRESSING TOWARD GOALS. WILL CONT TO MONITOR.
--- NOTE | 2019-11-02 15:30 | NUR ---
pt cont on precedx gtt, pt resting in room. cm spoke with son hanna via phone " going ok, nothing, just spoke with nurse and possible looking like might get to move to ccu soon. thank you"/son hanna [phone]
--- NOTE | 2019-11-02 18:30 | NUR ---
ASSUMMED CARE FROM NIGHT NURSE, ROSANGELA SEXTON THIS AM. PATIENT PROGRESSING TOWARDS OUTCOME GOAL EVIDENT BY PLEASANT AND COOPERATIVE, ASSIST WITH TURNING. PATIENT PLACED ON NC AT 4L AT 1100 TODAY AND O2 SAT IN THE UPPER 90'S. RESP RATE IN THE 28 TO 34 RANGE. O2 INCREASED WITH ACTIVITY SHE C/O SOB. PATIENT STARTED ON CLEAR LIQUIDS AFTER SWALLOW EVAL BY SPEECH THERAPY. HYDRALAZINE GIVEN FOR ELEVATED BP AT 1300 WITH PAIN MEDICATION FOR C/O PAIN. WITH RELIEF. SPOKE WITH HER SON VIA PHONE AT DIAZ 1500 TODAY AFTER SON FLAVIA WAS UPDATED BY THIS NURSE. URINE OUTPUT GREATER THAN 100 ML/HR AVERAGE.
[2019-11-03] VITALS (20 sets, daily range): BP systolic 136–186; BP diastolic 62–92
[2019-11-03 05:28] LABS: HEMATOCRIT 30.2 % (37.0-47.0); HEMOGLOBIN 9.9 gm/dL (12.0-15.0); MCH 29.9 pg (26.0-34.0); MCHC 32.7 g/dL (28.0-37.0); MCV 91.2 fL (80.0-100.0); RBC 3.32 mil/uL (4.20-5.00); RDW 17.4 % (10.5-14.5); WBC 16.1 thou/uL (4.0-11.0)
[2019-11-03 06:03] LABS: CALCIUM 7.6 mg/dL (8.5-10.1); CREATININE 0.6 mg/dL (0.6-1.0); MAGNESIUM 1.8 mg/dL (1.8-2.4); PHOSPHORUS 2.7 mg/dL (2.5-4.9); POTASSIUM 3.4 mmol/L (3.5-5.1)
--- NOTE | 2019-11-03 17:10 | NUR ---
TRANSFER VIA BED TO CCU ON ROOM AIR. PT VERY ANXIOUS. RR 40S ON ARRIVAL PLACED BACK ON BIPAP. DR. OSORIO PAGED RE HR 120 NOW THAT PT IS OFF PRECEDEX. MORPHINE FOR PAIN GIVEN. ALSO HAD XANAX FOR ANXIETY EARLIER WITH NO IMPROVEMENT IN HR.
--- NOTE | 2019-11-03 17:40 | NUR ---
DR. OSORIO PAGED A SECOND TIME, RE ST 120S. AWAITING CALL BACK PT HAS ALREADY TRANSFERED TO CCU.
--- NOTE | 2019-11-03 17:50 | NUR ---
dr. espinosa called back. u pdate given
--- NOTE | 2019-11-03 17:58 | NUR ---
ASSUMED CARE OF PT APPROX 173 A TRANSFER FROM ICU, INFORMATICA ARCHITECT CALLED HOSPITALIST FOR A RR OF 40 WHICH IS JUST A LITTLE HIGHER THAN HER NORM AT ICU PER INFORMATICA ARCHITECT. PT A&0X4, VERY ANXIOUS, SON WAS WITH HER AND LEFT, IS A GREAT HELP. PT KNOWS HOW TO USE CALL LIGHT. PT EXHIBITS MUCH ANXIETY, PER REPORT SHE IS PRONE TO THIS, VERY POLITE, AMB STATUS UNKNOWN AT THIS TIME. WOUNDS, SEE INTERVENTIONS. ENCOURAGED PT TO USE CALL LIGHT FOR ANY NEEDS. WILL CONTINUE TO MONITOR
--- NOTE | 2019-11-03 18:27 | NUR ---
PT FIGHTING W/BIPAP, CALLED RT THEY'LL COME. PT IS VERY ANXIOUS WITH RESPIRATIONS AT HER ICU NORM. EDUCATED, GENTLY, ON DOING THE DEEP SLOW BREATHING.
[2019-11-04] VITALS (41 sets, daily range): BP systolic 55–164; BP diastolic 30–74
--- NOTE | 2019-11-04 04:09 | NUR ---
ASSUMED CARE OF PATIENT AT 1900. PATIENT DECLINED BIPAP THROUGH NIGHT. PATIENT ON 2L OF OXYGEN VIA NC AND MAINTAINING OXYGEN SATURATIONS IN THE 90s. PATIENT SOUNDS COARSE, HAS NON PRODUCTIVE COUGH, AND CONTINUES TO BE TACHYPENIC AT INITIAL ASSESSMENT PATIENT C/O OF 6/10 PAIN BUT COULD NOT SPECIFY WHERE THE PAIN WAS. ADMINISTERED PRN MORPHINE ORDERED. PATIENT OBSERVED TO HAVE 3+ EDEMA IN BILATERAL HANDS. ELEVATED PATIENT'S HANDS ON PILLOWS THROUGH NOC AND EDEMA REDUCED TO 1+ IN LEFT HAND AND 2+ IN RIGHT HAND. WILL CONTINUE TO MONITOR.
[2019-11-04 06:30] LABS: CALCIUM 7.9 mg/dL (8.5-10.1); CREATININE 0.8 mg/dL (0.6-1.0); MAGNESIUM 1.8 mg/dL (1.8-2.4); PHOSPHORUS 3.1 mg/dL (2.5-4.9); POTASSIUM 3.7 mmol/L (3.5-5.1)
[2019-11-04 09:27] LABS: HEMATOCRIT 32.1 % (37.0-47.0); HEMOGLOBIN 10.3 gm/dL (12.0-15.0); MCH 29.7 pg (26.0-34.0); MCHC 32.2 g/dL (28.0-37.0); MCV 92.2 fL (80.0-100.0); PLATELET COUNT 150 thou/uL (150-400); RBC 3.49 mil/uL (4.20-5.00); WBC 20.4 thou/uL (4.0-11.0)
[2019-11-04 11:07] LABS: ABSOLUTE NEUTROPHILS 16.3 thou/uL (1.4-8.2); ANISOCYTOSIS 1+; METAMYELOCYTES 4 %; MYELOCYTES 1 %
--- NOTE | 2019-11-04 12:00 | NUR ---
OK TO TRANSFER PER DR. ROMO AND DR OSORIO
[2019-11-04 12:23] LABS: BE(vivo) -3.4 mmol/L (-2 to +3); HCO3 24.6 mmol/L (22.0-26.0); PO2 79.5 mmHg (80.0-100.0); pH 7.238 (7.360-7.450); sO2 93.4 % (92.0-98.0)
--- NOTE | 2019-11-04 14:06 | NUR ---
ASSUMED CARE OF PT AT 0700. PT ALERT AND ORIENTED TIMES THREE WITH PERIODS OF CONFUSION. PT VERY TYPICNIC 02 SATS 92% 2L. OTHER VSS, PINEDA TO DD. TPN INFUSING PER ORDER. WOUNDS TO SACRAL AREA ALSO BLE CHANGED. PT NOT PROGRESSING TOWRADS POC GOALS.
--- NOTE | 2019-11-04 14:13 | NUR ---
PT TO BE INTUBATED BY DR ROMO, DR ROMO REQUESTED 10 ML ETOMIDATE BE DRAWN UP WELL 10 ML SUCCINYCHOLINE AND 10 ML PROPOFOL. ALL OTHER INTUBATION SUPPLIES GATHERED. PT SON, FLAVIA, NOTIFIED BY DR OSORIO OF INTUBATION. PT WAS ON BIPAP UNTIL INTUBATION READY. DR ROMO ARRIVED AND HAD THIS RN ADMINISER 4 ML PROPOFOL. RT THEN BEGAN TO BAG PT. PT ASSESSED FOR READINESS FOR INTUBATION BY DR ROMO. PT DETERMINED TO BE SEDATED ENOUGH. DR ROMO INTUBATED WITH GLIDESCOPE AT APPROXIMATELY 1335 WITH A 7.5 CM TUBE TAPED AT 24 AT THE LIP. PT THEN GIVEN ANOTHER [address] ROMO AND GTT STARTED. PT BLOOD PRESSURES TAKEN AND IVF AND LEVOPHED STARTED FOR HYPOTENSION. RESTRAINTS WERE APPLIED. OGT WAS PLACED AND KUB AND CXR WERE ORDERED STAT FOR TUBE PLACEMENT. PT VENT SETTINGS CURRENTLY AC RATE 20. TV 450. PEEP 5. FIO2 30%.
[2019-11-04 14:30] LABS: BE(vivo) -1.9 mmol/L (-2 to +3); HCO3 23.4 mmol/L (22.0-26.0); PCO2 41.9 mmHg (35.0-45.0); PO2 68.7 mmHg (80.0-100.0); pH 7.365 (7.360-7.450); sO2 93.2 % (92.0-98.0)
--- NOTE | 2019-11-04 19:14 | NUR ---
PT HAD VERY LITTLE URINE OUTPUT AFTER THIRD DOSE OF LASIX. PT DID WHAT COULD HAVE BEEN SOME URINE ON CHUX WELL BOWEL MOVEMENT. PINEDA STAINED SO THIS RN CHANGED PINEDA OUT. WHEN REMOVED THE BALLOON OF PINEDA WAS COVERED IN SEDIMENT. UPON INSERTION OF NEW PINEDA PT HAD OUT 750 ML IMMEDIATELY, URINE VERY SEDIMENT FILLED. PT TO TRANSFER TO ICU BED 251 ONCE ROOM IS CLEANED.
[2019-11-04 20:35] LABS: ALBUMIN 1.9 g/dL (3.4-5.0); CALCIUM 7.5 mg/dL (8.5-10.1); POTASSIUM 3.4 mmol/L (3.5-5.1); TROPONIN-I 0.06 ng/mL (<0.06)
--- NOTE | 2019-11-04 21:00 | NUR ---
TX TO ROOM 251 FROM CCU. INTUBATED AND SEDATED LIGHTLY WITH PROPOFOL GT
[2019-11-05] VITALS (46 sets, daily range): BP systolic 92–161; BP diastolic 38–67
[2019-11-05 05:31] LABS: BE(vivo) 0.3 mmol/L (-2 to +3); HCO3 24.9 mmol/L (22.0-26.0); PCO2 39.7 mmHg (35.0-45.0); pH 7.415 (7.360-7.450); sO2 97.1 % (92.0-98.0)
--- NOTE | 2019-11-05 06:00 | NUR ---
REMAINS INTUBATED AND SEDATED WITH PROPOFOL GTT. 2000 CC UO THIS SHIFT. FOLLOWS SIMPLE COMMANDS. SINUS RHYTHM WITH OCC RUNS OF AFIB. ALL DRESSINGS DRY AND INTACT. WILL CONT TO MONITOR.
[2019-11-05 07:11] LABS: HEMATOCRIT 25.7 % (37.0-47.0); HEMOGLOBIN 8.7 gm/dL (12.0-15.0); MCH 30.3 pg (26.0-34.0); MCHC 33.7 g/dL (28.0-37.0); MCV 90.1 fL (80.0-100.0); RBC 2.85 mil/uL (4.20-5.00); RDW 17.3 % (10.5-14.5); WBC 11.9 thou/uL (4.0-11.0)
[2019-11-05 07:26] LABS: CALCIUM 7.5 mg/dL (8.5-10.1); CREATININE 0.9 mg/dL (0.6-1.0); POTASSIUM 3.2 mmol/L (3.5-5.1)
--- NOTE | 2019-11-05 09:08 | EKG ---
[facility] [place] [address] [place] [address] ELECTROCARDIOGRAM REPORT Name: RUT GUTHRIE Room #: 251-P ADM IN M.R.#: [id number] Admission: 10/26/19 Attend Phys: Erin Main MD Discharge: Date of : 40 Report #: [id number] THIS REPORT FOR: cc: Carlos Ramirez MD, John MD Lundgren,Juan Meneses MD [facility] ~ THIS REPORT FOR: //name// [facility] Test Date: 2019-11-04 Test Time: 09:45:31 Pat Name: RUT GUTHRIE Department: Room: [facility] Gender: F Internet Manager: Ana ROB : 1940 Requested By: Erin Main Order Number: [id number] MD: Juan Zhao Measurements Intervals [place]co Rate: 113 P: 15 DE: 115 QRS: -17 QRSD: 79 T: 93 QT: 303 QTc: 416 Interpretive Statements Sinus tachycardia Poor R wave progression Compared to ECG 10/26/2019 01:57:15 No significant changes Electronically Signed On 11-05-2019 9:08:33 CDT by Juan Zhao [email or web address] <ELECTRONICALLY SIGNED> By: Jaun Zhao MD, FACC 11/05/19 0908 0945 0945 Juan Zhao MD, [facility] /EPI
--- NOTE | 2019-11-05 09:41 | NUR ---
PT PLACED ON HOLD DUE TO DECLINE IN MEDICAL STATUS WITH SUBSEQUENT RE-INTUBATION. REQUEST NEW ORDERS WHEN PT IS ABLE TO PARTICIPATE IN THERAPEUTIC ACTIVITIES.
[2019-11-05 10:06] LABS: BE(vivo) 1.5 mmol/L (-2 to +3); HCO3 25.8 mmol/L (22.0-26.0); PCO2 39.4 mmHg (35.0-45.0); pH 7.434 (7.360-7.450); sO2 97.5 % (92.0-98.0)
--- NOTE | 2019-11-05 15:28 | NUR ---
pt required to be intubated over the weekend. will cont following as needed for dc needs.
--- NOTE | 2019-11-05 20:11 | NUR ---
0730-[facility].--VW 1130-SON IN,?'S ASKED/ANSWERED.--VW 1800-PLAN TO CPAP EARLY MATY AM PER .--VW 1900-CARE TURNED OVER TO ONCOMING RN.--VW
[2019-11-06] VITALS (14 sets, daily range): BP systolic 104–126; BP diastolic 38–51
[2019-11-06 03:38] LABS: BE(vivo) 0.6 mmol/L (-2 to +3); HCO3 25.5 mmol/L (22.0-26.0); PCO2 42.1 mmHg (35.0-45.0); sO2 97.6 % (92.0-98.0)
--- NOTE | 2019-11-06 06:00 | NUR ---
REMAINS INTUBATED AND SEDATED LIGHTLY WITH PROPOFOL GTT. IN SINUS RHYTHM. EYES OPEN SMILING. ALL BUTTOCK LEG AND BILAT FEET DRESSINGS DRY AND INTACT CHANGED BY DAY SHIFT RN. GOOD URINARY OUTPUT. WILL CONT TO MONITOR CLOSELY. PROGRESSING TOWARD GOALS.
[2019-11-06 07:11] LABS: ABSOLUTE NEUTROPHILS 6.1 thou/uL (1.4-8.2); BASOPHILS 1.3 % (0.0-2.0); EOSINOPHILS 7.2 % (0.0-3.0); HEMATOCRIT 23.6 % (37.0-47.0); LYMPHOCYTES 12.4 % (24.0-44.0); MCH 30.6 pg (26.0-34.0); MCHC 33.8 g/dL (28.0-37.0); MCV 90.6 fL (80.0-100.0); MONOCYTES 9.6 % (1.0-8.0); PLATELET COUNT 108 thou/uL (150-400); POLYS 69.5 % (36.0-66.0); RBC 2.61 mil/uL (4.20-5.00); WBC 8.8 thou/uL (4.0-11.0)
[2019-11-06 07:27] LABS: ALBUMIN 1.5 g/dL (3.4-5.0); CALCIUM 7.4 mg/dL (8.5-10.1); CREATININE 0.8 mg/dL (0.6-1.0); TOTAL BILIRUBIN 0.5 mg/dL (0.2-1.0); TOTAL PROTEIN 4.1 g/dL (6.4-8.2)
--- NOTE | 2019-11-06 09:51 | 2DMMODE ---
[facility] [place] [address] [place] [address] 2 D/M-MODE ECHOCARDIOGRAM Name: RUT GUTHRIE Room #: 251-P ADM IN M.R.#: [id number] Admission: 10/26/19 Attend Phys: Erin Main MD Discharge: Date of : 40 Report #: [id number] THIS REPORT FOR: cc: Carlos Ramirez MD, John MD Lammoglia, Francisco J. MD ~ APPROVED REPORT Study performed: 11/06/2019 08:47:44 EXAM: Comprehensive 2D, Doppler, and color-flow Echocardiogram Patient Location: ICU Room #: [facility] Status: routine BSA: 2.01 HR: 75 bpm BP: 114/45 mmHg Rhythm: NSR Other Information Study Quality: Adequate/Patient on vent Indications Anasarca, respiratory failure. HTN, HLP, DM. 2D Dimensions RVDd: 42.90 mm IVSd: 13.00 (7-11mm) LVOT Diam: 19.96 (18-24mm) LVDd: 42.57 mm PWd: 11.16 (7-11mm) Ascending Ao: 33.99 (22-36mm) LVDs: 25.85 (25-40mm) Aortic Root: 33.66 mm Volumes Left Atrial Volume (Systole) Single Plane 4CH: 45.88 mL Single Plane 2CH: 51.38 mL LA ESV Index: 26.00 mL/m2 Aortic Valve AoV Peak Sudhir.: 1.68 m/s AO Peak Gr.: 11.26 mmHg LVOT Max P.01 mmHg LVOT Max V: 1.32 m/s JORDEN Vmax: 2.47 cm2 [facility] [address] [place] [address] 2 D/M-MODE ECHOCARDIOGRAM Name: RUT GUTHRIE Room #: 251-P [facility] IN [facility]#: [id number] Admission: 10/26/19 Attend Phys: Erin Main, Discharge: Date of : 40 Report #: [id number] Mitral Valve E/A Ratio: 0.7 MV Decel. Time: 305.21 ms MV E Max Sudhir.: 0.71 m/s MV A Suhdir.: 1.00 m/s MV PHT: 88.51 ms IVRT: 69.20 ms Pulmonary Valve PV Peak Sudhir.: 1.16 m/s PV Peak Gr.: 5.42 mmHg Pulmonary Vein P Vein S: 0.56 m/s P Vein A: 0.34 m/s P Vein D: 0.29 m/s P Vein A Dur.: 115.3 msec P Vein S/D Ratio: 1.93 Tricuspid Valve TR Peak Sudhir.: 2.91 m/s RAP Estimate: 5.00 mmHg TR Peak Gr.: 34.00 mmHg PA Pressure: 39.00 mmHg Left Ventricle The left ventricle is normal size. There is normal LV segmental wall motion. Mild concentric left ventricular hypertrophy. Left ventricular systolic function is normal. LVEF is 60-65%. Mild diastolic dysfunction is present (impaired relaxation pattern). Right Ventricle The right ventricle is normal size. The right ventricular systolic function is normal. Atria The left atrium size is normal. The right atrium size is normal. Aortic Valve Aortic valve is mildly calcified. No aortic regurgitation is present. There is no aortic valvular stenosis. Mitral Valve Mitral valve leaflets are mildly thickened. Trace mitral regurgitation. No evidence of mitral valve stenosis. Tricuspid Valve [facility] [address] [place] [address] 2 D/M-MODE ECHOCARDIOGRAM Name: RUT GUTHRIE Room #: 251-P [facility] IN ..#: [id number] Admission: 10/26/19 Attend Phys: Erin Main, Discharge: Date of : 40 Report #: [id number] The tricuspid valve is normal in structure. Trace to mild tricuspid regurgitation. Estimated PAP is 40mmHg. Pulmonic Valve The pulmonary valve is normal in structure. Mild to moderate pulmonic regurgitation. Great Vessels The aortic root is normal in size. The ascending aorta is normal in size. IVC is normal in size and collapses >50% with inspiration. Pericardium There is no pericardial effusion. Left pleural effusion noted. <Conclusion> The left ventricle is normal size. LVEF is 60-65%. Aortic valve is mildly calcified. No aortic regurgitation is present. Mitral valve leaflets are mildly thickened. Trace mitral regurgitation. The tricuspid valve is normal in structure. Trace to mild tricuspid regurgitation. Estimated PAP is 40mmHg. The pulmonary valve is normal in structure. Mild to moderate pulmonic regurgitation. There is no pericardial effusion. Left pleural effusion noted. <ELECTRONICALLY SIGNED> By: Luis Felipe Hobbs MD 11/06/1950 Luis Felipe Hobbs MD /INF
[2019-11-06 13:08] LABS: MAGNESIUM 1.9 mg/dL (1.8-2.4); PHOSPHORUS 3.5 mg/dL (2.5-4.9)
[2019-11-06 13:24] LABS: BE(vivo) 0.2 mmol/L (-2 to +3); HCO3 25.3 mmol/L (22.0-26.0); PCO2 43.4 mmHg (35.0-45.0); PO2 84.8 mmHg (80.0-100.0); pH 7.384 (7.360-7.450); sO2 96.2 % (92.0-98.0)
--- NOTE | 2019-11-06 18:37 | NUR ---
ASSUMED PT's CARE AT 0700. PT AWAKE ON/OFF, ON PROPOFOL @20MCG/KG/MIN BUT TRACKING AND ANSWERING QUESTIONS APPROPRIATELY. ROUNDED ON PT. NEW ORDERS FOR ECHOCARDIOGRAM, KUB, AND ABDOMINAL ULTRASOUND COMPLETED.CPAP TRIALS DONE, TOLARATED THE SAME WELL. ABGs FOLLOWING TRIALS OK. BACK ON AC@30%. FAMILY VISITED TODAY, AND WERE UPDATED ON ON GOING POC. NO CONSERNS VOICED WHEN LEAVING.
[2019-11-07] VITALS (23 sets, daily range): BP systolic 102–157; BP diastolic 41–70
[2019-11-07 04:47] LABS: BE(vivo) 0.8 mmol/L (-2 to +3); HCO3 25.7 mmol/L (22.0-26.0); PO2 91.4 mmHg (80.0-100.0); pH 7.404 (7.360-7.450)
[2019-11-07 05:40] LABS: ABSOLUTE NEUTROPHILS 5.2 thou/uL (1.4-8.2); EOSINOPHILS 6.2 % (0.0-3.0); HEMATOCRIT 23.9 % (37.0-47.0); MCH 30.5 pg (26.0-34.0); MCHC 33.3 g/dL (28.0-37.0); MCV 91.4 fL (80.0-100.0); MONOCYTES 11.4 % (1.0-8.0); PLATELET COUNT 116 thou/uL (150-400); POLYS 63.4 % (36.0-66.0); RBC 2.62 mil/uL (4.20-5.00); RDW 18.1 % (10.5-14.5); WBC 8.2 thou/uL (4.0-11.0)
[2019-11-07 06:00] LABS: ALBUMIN 1.5 g/dL (3.4-5.0); CALCIUM 7.5 mg/dL (8.5-10.1); CREATININE 0.7 mg/dL (0.6-1.0); MAGNESIUM 1.8 mg/dL (1.8-2.4); PHOSPHORUS 3.6 mg/dL (2.5-4.9); POTASSIUM 3.3 mmol/L (3.5-5.1); TOTAL BILIRUBIN 0.5 mg/dL (0.2-1.0); TOTAL PROTEIN 4.3 g/dL (6.4-8.2)
[2019-11-07 14:16] LABS: BE(vivo) -0.2 mmol/L (-2 to +3); PCO2 37.2 mmHg (35.0-45.0); pH 7.427 (7.360-7.450); sO2 96.7 % (92.0-98.0)
--- NOTE | 2019-11-07 16:24 | NUR ---
SW reviewed chart. Pt remains in ICU. Intubated. Cpap trials to be continued. Pt is on IV lasix/IV abx. Pt will need therapy evals when able to participate. BOBBI is following to assist as needed with discharge planning.
--- NOTE | 2019-11-07 20:25 | NUR ---
ASSUMED PT CARE AT 0700. ASSESSMENTS COMPLETED AND DOCUMENTED. PT DENIES PAIN OR DICOMORT. PROPOFOL OFF AT 0943 PER ORDERS, CPAP TRIALS FROM 1135 TO 1400, ABGs GOOD, TOLARATED WEANING WELL, VSS. DR. RODRIGUEZ ROUNDED- PLAN FOR THORACENTESIS IN AM.
[2019-11-08] VITALS (26 sets, daily range): BP systolic 120–173; BP diastolic 47–90
[2019-11-08 04:26] LABS: BE(vivo) 1.8 mmol/L (-2 to +3); HCO3 25.9 mmol/L (22.0-26.0); pH 7.451 (7.360-7.450); sO2 97.4 % (92.0-98.0)
--- NOTE | 2019-11-08 04:52 | NUR ---
Assumed pt care at 1900. Pt is alert and oriented. No sign of distress noted in pt. Pt is intubated and sedated. Restriants in place. Assessment completed and documented. Repositioning done. Scheduled meds administeed to pt. No acute distress overnight. Continue to monitor pt. No further needs at this time
[2019-11-08 06:13] LABS: HEMOGLOBIN 6.9 gm/dL (12.0-15.0); WBC 7.3 thou/uL (4.0-11.0)
[2019-11-08 06:15] LABS: HEMATOCRIT 20.7 % (37.0-47.0); MCH 30.4 pg (26.0-34.0); MCHC 33.5 g/dL (28.0-37.0); MCV 90.8 fL (80.0-100.0); PLATELET COUNT 116 thou/uL (150-400); RBC 2.28 mil/uL (4.20-5.00); RDW 17.9 % (10.5-14.5)
[2019-11-08 07:00] LABS: MAGNESIUM 1.8 mg/dL (1.8-2.4); PHOSPHORUS 3.2 mg/dL (2.5-4.9)
[2019-11-08 07:01] LABS: ALBUMIN 1.8 g/dL (3.4-5.0); CALCIUM 7.3 mg/dL (8.5-10.1); CREATININE 0.7 mg/dL (0.6-1.0); POTASSIUM 3.5 mmol/L (3.5-5.1); TOTAL BILIRUBIN 0.7 mg/dL (0.2-1.0); TOTAL PROTEIN 3.8 g/dL (6.4-8.2)
[2019-11-08 08:26] LABS: APTT 26.5 Seconds (24.5-32.8); FIBRINOGEN 332.1 mg/dL (210-360); INR 1.1; PROTIME 11.6 Seconds (9.3-11.4)
[2019-11-08 11:21] LABS: ABSOLUTE NEUTROPHILS 5.3 thou/uL (1.4-8.2); ANISOCYTOSIS 1+
[2019-11-08 16:44] LABS: BE(vivo) -1.3 mmol/L (-2 to +3); HCO3 21.4 mmol/L (22.0-26.0); PCO2 28.7 mmHg (35.0-45.0); PO2 170.9 mmHg (80.0-100.0); sO2 99.3 % (92.0-98.0)
--- NOTE | 2019-11-08 19:47 | NUR ---
ASSUMED PATIENT CARE AT 0700; PATIENT INTUBATED/SEDATED ON PROPOFOL. NODS APPROPRIATELY TO YES/NO, FOLLOWS MINICAL COMMANDS AND OPENS EYES SPONTANEOUSLY. MINIMAL UOP NOTED THROUHOUT THE SHIFT, PROVIDER NOTIFIED. PLAN TO TRANSFUSE 1U PER ORDER - AWAITING BLOOD BANK. THORACENTESIS NOT COMPLETED - PER US/IR NOTES- NOT A LARGE EFFUSION. SON AT BEDSIDE, UPDATED ON STATUS AND POC.
[2019-11-09] VITALS (23 sets, daily range): BP systolic 110–136; BP diastolic 35–65
--- NOTE | 2019-11-09 00:57 | NUR ---
ASSUMED CARE OF PATIENT AT 1900. FMS LEAKING. LITTLE AIR IN THE BALLOON. AIR REPLACED, PATIENT CLEANED UP. BLOOD TRANSFUSED PER ORDERS. NO URINE OUTPUT NOTED. PINEDA CATHETER REPLACED. 1400 MLS OUT IMMEDIATELY. TURNED Q2, LEGS WRAPPED. BOOTS OBTAINED. WILL CONTINUE TO MONITOR. NOT PROGRESSING TOWARDS POC GOALS.
[2019-11-09 03:33] LABS: ABSOLUTE NEUTROPHILS 6.8 thou/uL (1.4-8.2); BASOPHILS 1.2 % (0.0-2.0); HEMATOCRIT 23.2 % (37.0-47.0); HEMOGLOBIN 7.7 gm/dL (12.0-15.0); LYMPHOCYTES 13.6 % (24.0-44.0); MCHC 33.1 g/dL (28.0-37.0); MCV 90.7 fL (80.0-100.0); MONOCYTES 10.5 % (1.0-8.0); PLATELET COUNT 110 thou/uL (150-400); POLYS 70.7 % (36.0-66.0); RBC 2.56 mil/uL (4.20-5.00); RDW 17.2 % (10.5-14.5); WBC 9.7 thou/uL (4.0-11.0)
[2019-11-09 03:47] LABS: CALCIUM 7.4 mg/dL (8.5-10.1); MAGNESIUM 1.7 mg/dL (1.8-2.4); PHOSPHORUS 3.8 mg/dL (2.5-4.9)
[2019-11-09 03:51] LABS: POTASSIUM 2.9 mmol/L (3.5-5.1)
[2019-11-09 04:09] LABS: HCO3 24.4 mmol/L (22.0-26.0); PCO2 43.5 mmHg (35.0-45.0); PO2 67.6 mmHg (80.0-100.0); pH 7.366 (7.360-7.450); sO2 92.9 % (92.0-98.0)
--- NOTE | 2019-11-09 10:43 | NUR ---
Nutrition: GI states ok to trial trickle tube feeds. REC Vital HP at 10 mL/hr. If tolerates can decrease TPN to 50 mL/hr. RD will monitor for tolerance. Undergoing weaning trials. REC re-check vitamin D and folate levels. Deficiency noted in September.
[2019-11-09 10:53] LABS: POTASSIUM 3.2 mmol/L (3.5-5.1)
[2019-11-09 12:08] LABS: BE(vivo) -0.9 mmol/L (-2 to +3); HCO3 24.4 mmol/L (22.0-26.0); pH 7.371 (7.360-7.450); sO2 97.1 % (92.0-98.0)
--- NOTE | 2019-11-09 12:13 | NUR ---
ASSUMED PT CARE AT 0700. PT AWAKE, ALERT AND ORIENTED TO SELF. NOTED TO BE DELIRIOUS, RESTLESS AND CONFUSED TRYING TO GET OUT OF BED DESPITE REORIENTATION. DR. MICHAEL TONEY. NEW ORDERS-RISPERIDONE AND LORAZEPAM. ORDERS IMPLEMENTED. DR. MAYFIELD HERE TO SEE PT, NEW ORDERS- D5% @100 ML/HR, ORAL K+,& RENAL PANEL NOTED. NEW RIGHT #20 PIV INSERTED. IVF INFUSING.
--- NOTE | 2019-11-09 14:39 | NUR ---
ON-GOING ASSESSMENT: CM REVIEWED CHART. PT REMAINS ON THE VENTILATOR. PT HAD EGD TODAY SHOWING LARGE DUODENAL ULCER WITH LARGE CLOT S/P INJECTION OF EPINEPHRINE. PT IS TO HAVE PARACENTESIS TODAY. CM WILL CONTINUE TO FOLLOW TO ASSIST NEEDED.
[2019-11-09 14:40] LABS: CLARITY CLEAR; COLOR YELLOW; SOURCE ABDOMINAL; TOTAL VOLUME 62 mL
[2019-11-09 14:45] LABS: SOURCE ABDOMINAL
--- NOTE | 2019-11-09 15:11 | NUR ---
ASSUMED PATIENT CARE @0700. PT AWAKE, A/OX1. NOTED COFUSION, FORGETFULNESS AND DELIRIOUS EPISODES. VSS, AFEBRILE. ASSESSMENTS COMPLETED AND DOCUMENTED. DR.STROM TONEY. NEW ORDERS- RISPERIDONE AND LORAZEPAM. ORDERS IMPLEMENTED. DR. MAYFIELD SAW PT. NEW ORDERS FOR D5W @100ML/HR, K+ REPLACEMENT AND AM RENAL PANEL. NEW #20 PIV PLACED RIGHT HAND, IVF INFUSING.
[2019-11-09 15:25] LABS: BF NUCLEATED CELLS 68 /mm3; BF RBC 273 /mm3
[2019-11-09 16:06] LABS: BF MACROPHAGE 30 %; BF NEUTROPHILS 11 %
--- NOTE | 2019-11-09 18:08 | NUR ---
PT MINIMALLY SEDATED WITH PROPOFOL. WILL OPEN EYES, FOLLOW COMMANDS, AND NOD TO YES/ NO QUESTIONS. CPAP TRIAL DONE X1 HOUR. PT WENT INTO AFIB 110'S DURING CPAP TRIAL. ABG'S, CPAP TRIAL, AFIB CALLED AND DISCUSSED WITH DR RODRIGUEZ. PT PLACED BACK INTO AC SETTINGS AND IV METOPROLOL GIVEN. PT RETURNED TO NSR. PARACENTESIS DONE AT BEDSIDE THIS AFTERNOON. 3L DRAINED. UPDATED PT'S SON AND DAUGHTER TODAY. ORDER TO START ON TUBE FEEDING VITAL HP @10ML/HR. NO TUBE FEEDING PUMPS AVAILABLE IN HOSPITAL. BOLUS 40ML TUBE FEEDING GIVEN Q4H. TOLERATING WELL. WILL CONTINUE TO MONITOR PT.
--- NOTE | 2019-11-09 19:16 | NUR ---
THIS AM OG TUBE FOUND CLAMPED AND AT 30CM. READVANCED AND KUB DONE. RESULT READING EXTENDS BELOW HEMIDIAPHRAM. CALLED AND DISCUSSED WITH DR PHILLIPS AND HE CONFIRMED THAT IT IS IN STOMACH AND OK TO USE FOR FEEDING.
[2019-11-10] VITALS (23 sets, daily range): BP systolic 100–150; BP diastolic 5–66
[2019-11-10 02:06] LABS: IgG 559 mg/dL (586-1602)
[2019-11-10 05:42] LABS: HEMATOCRIT 21.9 % (37.0-47.0); HEMOGLOBIN 7.4 gm/dL (12.0-15.0); MCH 30.7 pg (26.0-34.0); MCHC 33.8 g/dL (28.0-37.0); MCV 90.7 fL (80.0-100.0); RBC 2.42 mil/uL (4.20-5.00); RDW 17.8 % (10.5-14.5); WBC 6.8 thou/uL (4.0-11.0)
[2019-11-10 05:53] LABS: CALCIUM 7.4 mg/dL (8.5-10.1); MAGNESIUM 1.9 mg/dL (1.8-2.4); POTASSIUM 3.3 mmol/L (3.5-5.1)
[2019-11-10 17:06] LABS: CERULOPLASMIN 11.8 mg/dL (19.0-39.0)
--- NOTE | 2019-11-10 18:33 | NUR ---
ASSUMED CARE OF PT AT 0700, PT IS A [employer] OF 11. PT DOES NMOT SEEM TO BE IN PAIN. CONT ON PROPOFOL FOR VENT MANAGEMENT. PT HAD SBT AND JOHN WELL. SHE IS FEBRILE BUT OTHERWISE VSS. CONT TO HAVE LIQUID STOOL. WOUND DRESSING CHANGED. PT JOHN TUBE FEEDS. SHE IS RESTING WITH EYES CLOSED AT THE MOMMENT.
[2019-11-11] VITALS (31 sets, daily range): BP systolic 109–147; BP diastolic 42–65
[2019-11-11 05:27] LABS: ABSOLUTE NEUTROPHILS 4.5 thou/uL (1.4-8.2); BASOPHILS 1.3 % (0.0-2.0); EOSINOPHILS 3.7 % (0.0-3.0); HEMATOCRIT 22.9 % (37.0-47.0); HEMOGLOBIN 7.6 gm/dL (12.0-15.0); LYMPHOCYTES 15.6 % (24.0-44.0); MCH 30.2 pg (26.0-34.0); MCHC 33.3 g/dL (28.0-37.0); MCV 90.6 fL (80.0-100.0); MONOCYTES 10.1 % (1.0-8.0); PLATELET COUNT 102 thou/uL (150-400); POLYS 69.3 % (36.0-66.0); RBC 2.52 mil/uL (4.20-5.00); RDW 17.6 % (10.5-14.5); WBC 6.5 thou/uL (4.0-11.0)
[2019-11-11 05:41] LABS: BE(vivo) -1.1 mmol/L (-2 to +3); HCO3 23.2 mmol/L (22.0-26.0); PCO2 36.8 mmHg (35.0-45.0); PO2 99.7 mmHg (80.0-100.0); pH 7.417 (7.360-7.450); sO2 97.7 % (92.0-98.0)
[2019-11-11 05:48] LABS: ALBUMIN 2.5 g/dL (3.4-5.0); CALCIUM 7.5 mg/dL (8.5-10.1); CREATININE 0.9 mg/dL (0.6-1.0); POTASSIUM 3.3 mmol/L (3.5-5.1); TOTAL BILIRUBIN 1.7 mg/dL (0.2-1.0); TOTAL PROTEIN 4.6 g/dL (6.4-8.2)
--- NOTE | 2019-11-11 10:47 | NUR ---
1029- DR. PASTOR ROUNDED ON PT AND STATED TO TURN TPN DOWN FROM 50ML/HR TO 30MLS/HR. GI PHYSICIAN ROUNDED AND STATED TO INCREASE TUBE FEEDING BOLUSES FROM 80 MLS Q4 HOURS TO 100 MLS Q4 HOURS.
--- NOTE | 2019-11-11 11:34 | NUR ---
0947- PT HEART RYTHEM CHANGED FROM SA TO AFIB. DR. PASTOR NOTIFIED THIS AM WHEN SHE ROUNDED ON PT. NO NEW ORDERS GIVEN AT THIS TIME.
--- NOTE | 2019-11-11 18:45 | NUR ---
PT'S SON FLAVIA STAYED AT BEDSIDE WITH PT FROM 10AM TO 1600.
[2019-11-12] VITALS (39 sets, daily range): BP systolic 92–139; BP diastolic 36–92
[2019-11-12 02:05] LABS: HAV IgM AB (ANTI-HAV IgM) Negative (Negative); HEPATITIS B SURFACE AG Negative (Negative); HEPATITIS C VIRUS AB <0.1 (0.0-0.9)
[2019-11-12 03:36] LABS: BE(vivo) 1.8 mmol/L (-2 to +3); HCO3 26.6 mmol/L (22.0-26.0); PCO2 42.6 mmHg (35.0-45.0); PO2 97.7 mmHg (80.0-100.0); pH 7.413 (7.360-7.450); sO2 97.5 % (92.0-98.0)
--- NOTE | 2019-11-12 06:00 | NUR ---
a very delightful little lady. smiling follows simple commands and nods approp. remains intubated and sedated lightly with propofol tpn at 30 cc/hr. will cont to monitor. progressing towards goals
[2019-11-12 06:23] LABS: ABSOLUTE NEUTROPHILS 3.4 thou/uL (1.4-8.2); BASOPHILS 1.1 % (0.0-2.0); EOSINOPHILS 5.7 % (0.0-3.0); HEMATOCRIT 21.9 % (37.0-47.0); HEMOGLOBIN 7.4 gm/dL (12.0-15.0); MCH 30.7 pg (26.0-34.0); MCHC 33.5 g/dL (28.0-37.0); MCV 91.4 fL (80.0-100.0); MONOCYTES 10.5 % (1.0-8.0); PLATELET COUNT 101 thou/uL (150-400); POLYS 61.7 % (36.0-66.0); RDW 18.3 % (10.5-14.5); WBC 5.5 thou/uL (4.0-11.0)
[2019-11-12 06:39] LABS: ALBUMIN 2.5 g/dL (3.4-5.0); CALCIUM 7.9 mg/dL (8.5-10.1); POTASSIUM 3.2 mmol/L (3.5-5.1); TOTAL BILIRUBIN 1.9 mg/dL (0.2-1.0); TOTAL PROTEIN 4.7 g/dL (6.4-8.2)
--- NOTE | 2019-11-12 08:35 | EKG ---
[facility] [place] [address] ELECTROCARDIOGRAM REPORT Name: RUT GUTHRIE Room #: 251- ADM IN M.R.#: [id number] Admission: 10/26/19 Attend Phys: Erin Main MD Discharge: Date of : 40 Report #: [id number] THIS REPORT FOR: cc: Carlos Ramirez MD, John MD Lundgren,Juan Meneses MD [facility] ~ THIS REPORT FOR: //name// [facility] Test Date: 2019-11-12 Test Time: 07:43:13 Pat Name: RUT GUTHRIE Department: Room: [facility] Gender: F Budget Controller: ALEXIS : 1940 Requested By: Jazlyn Dove Order Number: [id number] MD: Juan Zhao Measurements Intervals [place] Rate: 74 P: NC: QRS: -3 QRSD: 92 T: 14 QT: 399 QTc: 443 Interpretive Statements Atrial fibrillation Abnormal R-wave progression, late transition Compared to ECG 11/04/2019 09:45:31 Sinus tachycardia no longer present Electronically Signed On 11-12-2019 8:34:46 CDT by Juan Zhao [email or web address] <ELECTRONICALLY SIGNED> By: Juan Zhao MD, [facility] 11/12/19 0834 0743 Juan Zhao MD, [facility] /EPI
[2019-11-12 08:56] LABS: ANISOCYTOSIS 1+
[2019-11-12 10:06] LABS: ANA INTERPRETATION Negative (Negative)
[2019-11-12 11:07] LABS: BODY FLUID ALBUMIN 0.4 g/dL (Not Estab.); BODY FLUID AMYLASE 63 U/L (()); BODY FLUID GLUCOSE 156 mg/dL (()); BODY FLUID LDH 47 IU/L (())
--- NOTE | 2019-11-12 11:20 | NUR ---
Recommend taper down tpn to 25ml/hr, then off within 8 hr. Initiate vital HP, 1 carton, 5x per day as tolerated. Defer fluid needs to physician.
--- NOTE | 2019-11-12 16:21 | NUR ---
on-going ASSESSMENT: CM REVIEWED CHART. PT REMAINS ON THE VENTILATOR- ATTEMPTING WEANING TRIALS BUT HAVE FAILED SO FAR. PT HAS BEEN ON TPN AND BOLUS FEEDINGS WERE STARTED BUT PT IS HAVING HIGH RESIDUAL. CM WILL CONTINUE TO FOLLOW TO ASSIST NEEDED.
[2019-11-12 16:52] LABS: BE(vivo) 0.1 mmol/L (-2 to +3); HCO3 25.4 mmol/L (22.0-26.0); PCO2 44.6 mmHg (35.0-45.0); PO2 98.3 mmHg (80.0-100.0); pH 7.373 (7.360-7.450); sO2 97.3 % (92.0-98.0)
--- NOTE | 2019-11-12 17:10 | NUR ---
PT INTUBATED AND LIGHTLY SEDATED ON PROPOFOL GTT. FOLLOWS COMMANDS. AFEBRILE. TOLERATING NEW TUBE FEED ORDERS. ADEQUATE UOP AFTER PINEDA WAS REPLACED DUE TO SEDIMENT PLUG AT CATHETER TIP. FMS IN PLACE WITH SMALL OUTPUT. CPAP TRIAL TODAY FROM [id number], PT TOLERATED WELL. WOUND CARE DONE TO MULTIPLE LOWER EXTREMITY WOUNDS, ALONG WITH COCCYX. POTASSIUM REPLACED PER HOSPITAL PROTOCAL. TPN DC'D. PT AND SON HAVE BEEN UPDATED AND EDUCATED ON PT CONDITION AND POC. SON AT BED SIDE. PT SLOWLY PROGRESSING TOWARDS POC. WILL CONTINUE TO MONITOR.
[2019-11-13] VITALS (20 sets, daily range): BP systolic 105–142; BP diastolic 46–116
--- NOTE | 2019-11-13 07:08 | PATH ---
[facility] [address] [place] [address] PATHOLOGY RPT PROCEDURE Name: RUT GUTHRIE Room #: 246-P ADM IN .R.#: [id number] Admission: 10/26/19 Date of : 40 Discharge: Report #: [id number] Path Case #: [id number] Note [facility] Accession Number: [id number] TESTS RESULT FLAG UNITS REF RANGE LAB Clinician Provided Cytology Information No. of containers..01 Other (Miscellaneous) Source: 01 ABDOMINAL FLUID DIAGNOSIS: 02 ABDOMINAL FLUID NEGATIVE FOR MALIGNANT EPITHELIAL CELLS. REACTIVE MESOTHELIAL CELLS ARE PRESENT. Signed out by: 02 Susan Hargrove MD, Pathologist NPI- [id number] Performed by: 01 Carmel New, Development Technician ([facility]) Gross description: 01 20ML, CLEAR YELLOW, 1 TP 1 CB /LCS 11/09/2019 1757 Local FLAG LEGEND: L-Low Normal,H-High Normal,LL-Alert Low,HH-Alert High <-Panic Low,>-Panic High,A-Abnormal,AA-Critical Abnormal Performed at: [address] [place] [address] Rafy Teran MD, [address] [address] Susan Hargrove MD, Specimen Comment: A courtesy copy of this report has been sent to [phone], [phone]- Specimen Comment: [id number] Specimen Comment: Report sent to / DR OSORIO Performed at: [address], [place], [place] [id number] MD Rafy Teran MD Phone: [phone]
[2019-11-13 07:16] LABS: CALCIUM 8.1 mg/dL (8.5-10.1); CREATININE 1.3 mg/dL (0.6-1.0); POTASSIUM 3.2 mmol/L (3.5-5.1)
[2019-11-13 10:40] LABS: BASOPHILS 1.3 % (0.0-2.0); HEMOGLOBIN 6.8 gm/dL (12.0-15.0); MCH 30.3 pg (26.0-34.0); WBC 4.3 thou/uL (4.0-11.0)
[2019-11-13 10:42] LABS: ABSOLUTE NEUTROPHILS 2.5 thou/uL (1.4-8.2); EOSINOPHILS 5.7 % (0.0-3.0); HEMATOCRIT 20.6 % (37.0-47.0); LYMPHOCYTES 23.3 % (24.0-44.0); MCHC 32.9 g/dL (28.0-37.0); MCV 92.2 fL (80.0-100.0); MONOCYTES 11.1 % (1.0-8.0); POLYS 58.6 % (36.0-66.0); RBC 2.23 mil/uL (4.20-5.00)
[2019-11-13 10:44] LABS: PLATELET COUNT 104 thou/uL (150-400)
[2019-11-13 11:47] LABS: ANISOCYTOSIS 1+; HYPOCHROMASIA SLIGHT; POIKILOCYTOSIS SLIGHT
--- NOTE | 2019-11-13 19:58 | NUR ---
CPAP TRIAL FOR @ 2 HRS TODAY, ABG'S COMPLETED, THEN WEANING PARAMETERS. PT HAD GOOD EFFORT HOWEVER WEANING PARAMETERS WERE POOR. REPLACED ON ASSIST CONTROL. ANANDA, SON PRESENT PROVIDING SUPPORT TO HIS MOTHER. UPDATED ON PT STATUS INCLUDING CPAP TRIAL/WEANING PARAMETERS. ALL QUESTIONS ANSWERED TO UNDERSTANDING.
--- NOTE | 2019-11-13 23:02 | NUR ---
Assumed patient's care at 1900. Pt awake, alert and oriented X3, denies pain, but points at ET tube discomfort & wants it out.Reoriented on situation and need for treatment.Xanax 0.5mg given for anxiety.Assessment completed and documented. One unit PRBC administered-hgb 6.8
[2019-11-14] VITALS (24 sets, daily range): BP systolic 116–182; BP diastolic 56–82
[2019-11-14 03:58] LABS: HEMATOCRIT 24.3 % (37.0-47.0); HEMOGLOBIN 8.1 gm/dL (12.0-15.0); MCH 30.4 pg (26.0-34.0); MCHC 33.2 g/dL (28.0-37.0); MCV 91.5 fL (80.0-100.0); RBC 2.66 mil/uL (4.20-5.00); RDW 18.1 % (10.5-14.5); WBC 5.9 thou/uL (4.0-11.0)
[2019-11-14 04:53] LABS: ALBUMIN 2.8 g/dL (3.4-5.0); CALCIUM 7.9 mg/dL (8.5-10.1); CREATININE 1.3 mg/dL (0.6-1.0); POTASSIUM 3.1 mmol/L (3.5-5.1); TOTAL BILIRUBIN 1.9 mg/dL (0.2-1.0); TOTAL PROTEIN 4.9 g/dL (6.4-8.2)
--- NOTE | 2019-11-14 09:07 | NUR ---
Since pt has changed to feeding pump instead of bolus feeds, new tube feed recommendation are vital high protein at 60ml/hr. Defer any fluid needs to physician
[2019-11-14 11:21] LABS: BE(vivo) 0.6 mmol/L (-2 to +3); HCO3 26.4 mmol/L (22.0-26.0); PCO2 48.3 mmHg (35.0-45.0); PO2 93.4 mmHg (80.0-100.0); pH 7.356 (7.360-7.450); sO2 96.8 % (92.0-98.0)
[2019-11-14 13:25] LABS: BE(vivo) 1.5 mmol/L (-2 to +3); HCO3 27.4 mmol/L (22.0-26.0); PCO2 50.1 mmHg (35.0-45.0); PO2 79.9 mmHg (80.0-100.0); pH 7.356 (7.360-7.450); sO2 95.2 % (92.0-98.0)
--- NOTE | 2019-11-14 19:42 | NUR ---
ASSUMED CARE AT 0700. PATIENT EXTUBATED AT 1140 WITH OG TUBE BEING REMOVED WELL. AFEBRILE. FMS IN PLACE. UOP IS ADEQUATE HOWEVER LOW. AVERAGING 25 ML/HR OUT. POTASSIUM REPLACED PER HOSPITAL PROTOCOL. SON VISITED AND HE AND THE PATIENT WERE UPDATED AND EDUCATED ON PATIENT CONDITION AND PLAN OF CARE. OXYGEN TITRATED PER PATIENT TOLERANCE. ALL WOUND CARE COMPLETED ORDERED. PICTURES WERE TAKEN HOWEVER UNABLE TO PRINT DUE TO MEMORY CARD MALFUNCTION. PATIENT PROGRESSING TOWARDS PLAN OF CARE. 24 HR URINE COLLECTION INITIATED.
--- NOTE | 2019-11-14 21:32 | NUR ---
1899-RECEIVED REPORT FROM ANGELIQUE SEXTON AND MARIELLE SEXTON. ASSUMED PATIENT CARE. 1999-SPOKE WITH ZENAIDA HERNANDEZ REGARDING PATIENT'S PAIN LEVEL/REQUEST FOR PAIN MEDS. PATIENT CURRENTLY NPO AFTER BEING EXTUBATED TODAY. PATIENT HAS NOT BEEN EVALUATED BY SPEECH THERAPY FOR A SWALLOW STUDY AT THIS TIME. FOUND THAT PATIENT'S FMS WAS LEAKING ONTO THE BED. REMOVED LEAKING FMS. GAVE PATIENT A ONE TIME DOSE OF TYLENOL FOR PAIN. REPLACED FMS. CLEANED PATIENT/LINENS.
[2019-11-15] VITALS (37 sets, daily range): BP systolic 111–174; BP diastolic 47–81
[2019-11-15 05:53] LABS: CALCIUM 8.2 mg/dL (8.5-10.1); CREATININE 1.1 mg/dL (0.6-1.0); MAGNESIUM 1.5 mg/dL (1.8-2.4); POTASSIUM 3.6 mmol/L (3.5-5.1)
--- NOTE | 2019-11-15 15:15 | EKG ---
[facility] [place] [address] [place] [address] ELECTROCARDIOGRAM REPORT Name: RUT GUTHRIE Room #: 246-P ADM IN M.R.#: [id number] Admission: 10/26/19 Attend Phys: Erin Main MD Discharge: Date of : 40 Report #: [id number] THIS REPORT FOR: cc: Carlos Ramirez MD, John MD Lammoglia,Luis Felipe Martinez MD ~ THIS REPORT FOR: //name// [facility] Test Date: 2019-11-15 Test Time: 14:12:46 Pat Name: RUT GUTHRIE Department: Room: [facility] Gender: F Reagent Tender: Ana ROB : 1940 Requested By: Matthew Hernandez Order Number: [id number] MD: Luis Felipe Hobbs Measurements Intervals [place] Rate: 116 P: [place]: QRS: -20 QRSD: 82 T: 26 QT: 324 QTc: 451 Interpretive Statements Atrial fibrillation Poor R wave progression Nonspecific ST-T wave change Compared to ECG 11/12/2019 07:43:13 No significant change Electronically Signed On 11-15-2019 15:15:08 CDT by Luis Felipe Hobbs [email or web address] <ELECTRONICALLY SIGNED> By: Luis Felipe Hobbs MD 11/15/19 1515 1412 1412 Luis Felipe Hobbs MD /EPI
--- NOTE | 2019-11-15 19:21 | NUR ---
ASSUMED CARE @ 0700 11/15/19, PT ASSESSMENTS AND VSS COMPLETE PER ICU PROTOCOL. PT ENCOUNTERED ON FACE SHIELD, NOW ON 3L, TOLERATING OK. @ APPROX 1300, PT HR IN THE 130-140, LOPRESSOR GIVEN @ 1320, HR DOWN TO 108 5-10MIN AFTER, BUT NOT SUSTAINED, HR BACK UP IN THE 130-140, RHYTHM SEEMED LIKE A-FIB, EKG ORDERED PER PRT, PT IN AFIB RVR, BONNY CLASSIFICATIONS OFFICER CC/CM CALLED, ORDERS FOR AMIODARONE IN PLACE. UO DECLINE OVER TWO HOURS, DR ROMO INFORMED, BOLUS ORDER RECIEVED. RN EXPLAINS THAT ABOUT PT CHRONIC ASCITIS, ORDERS STILL STAND. WILL CONT TO MONITOR.
[2019-11-16] VITALS (11 sets, daily range): BP systolic 124–165; BP diastolic 49–69
--- NOTE | 2019-11-16 01:06 | NUR ---
PT IS STABLE. A&OX4 NO COMPLAINTS OVERNIGHT. REMAINS ON 2L SATS 97%. REMAINS NPO, ULTRASOUNDS AND POSSIBLE PARACENTHESIS IN THE AM. WILL CONTINUE TO COSELY MONITOR
[2019-11-16 04:59] LABS: INR 1.2; PROTIME 12.6 Seconds (9.3-11.4)
--- NOTE | 2019-11-16 09:38 | NUR ---
ON-GOING ASSESSMENT: CM REVIEWED CHART AND SPOKE WITH ATTENDING. PT IS NOW EXTUBATED SINCE 11/13 AND IS CURRENTLY ON 3L OXYGEN. CM SPOKE WITH ATTENDING AND PT/OT HAS BEEN ORDERED TO START WORKING WITH PATIENT AGAIN. CM SPOKE WITH SON ILDEFONSO AND DISCUSSED LIKELY NEED FOR POST ACUTE CARE. CM EMAILED HIM A LIST OF IN-NETWORK SNF WITH [employer] TO HIS EMAIL .[employer]. HE REPORTS HE WILL LOOK AT THE LIST AND LET CM KNOW ONCE HE HAS SOME OPTIONS. CM WILL CONTINUE TO FOLLOW TO ASSIST NEEDED.
[2019-11-16 10:44] LABS: ALBUMIN 2.5 g/dL (3.4-5.0); CREATININE 1.2 mg/dL (0.6-1.0); POTASSIUM 3.8 mmol/L (3.5-5.1); TOTAL BILIRUBIN 1.7 mg/dL (0.2-1.0); TOTAL PROTEIN 5.1 g/dL (6.4-8.2)
--- NOTE | 2019-11-16 11:27 | NUR ---
POST PARACENTISIS PERFORMED NOW. LARGE AMOUNTS DRAINED OFF ABDOMEN LOOKS LIKE ROUGHLY (5-7 LITERS). ORAL SWABS TO MOUTH PT. IS DRY LIPS. SHE STATED NO PAIN AT PRESENT POST INTERVENTION. BREAK FAST TRAY OFFERED WELL, SHE DECLINED. PT APPEARS OVERALL MORE COMFORTABLE POST INTERVENTION.
--- NOTE | 2019-11-16 16:30 | NUR ---
14:00 PT TO DOWNGRADE AND TRANSFER TO CCU, REPORT CALLED TO NAEL. DENIES ANY PAIN AT THIS TIME, FOLLOWS COMMANDS AND PLEASANT OVERALL. LINENS CHANGED FROM PROCEDURE AREA SOME BLOOD ON SHEETS, ETC. PT. DENIES ANY SOB FEELINGAS AND IS ON 2.5 L NC AT PRESENT, NO STRIDOR, CLEAR LUNG SOUND NOW. HIPOACTIVE BS ALL DAY TODAY.
--- NOTE | 2019-11-16 19:08 | NUR ---
PT CARE ASSUMED AT 1430. ASSESSMENTS CHARTED. MEDICATION CHARTED. PT TAKES PILLS CRUSHED WITH PUDDING OR APPLESAUCE. AMOXICILLIN IS IN REFRIDGERATOR. AMIODARONE 0.5 MCG/KG/MIN. PT HAS PINEDA AND RECTAL TUBE. O2 2.5 LPM NC.
--- NOTE | 2019-11-17 03:43 | NUR ---
ASSESSMENTS CHARTED, MEDS CHARTED GIVEN. PATIENT TRANSFERED FROM ICU TO CCU TODAY. PATIENT GETTING MAINTENANCE FLUIDS AND AMIO DURING SHIFT. ALERT EXCEPT TO TIME AND DATE. SINUS RHYTHM DURING SHIFT. ON 2 LITERS NM. HAS FECAL MANAGEMENT SYSTEM AND PINEDA IN PLACE. HAS SEEN SPEECH THERAPY AND NOW HAS A DIET WITH HONEY THICK FLUIDS, ACCU CHECK ACHS NOW. MULTIPLE WOUNDS ON LOWER EXTREMITIES AND BOTTOM. PHARMACY WAS QUESTIONING ALBUMIN ORDER AT START OF SHIFT. DAY SHIFT NOTIFIED DR. PASTOR. SHE RESPONDED TO READ TODAYS NOTE. PHARMACY ADJUSTED ORIGINAL ORDER AND SENT MEDS TO THE FLOOR. PATIENT WAS TURNED THROUGHOUT THE NIGHT. FALL PRECAUTIONS IN PLACE DURING SHIFT. PATIENT DENIES PAIN.
[2019-11-17 04:45] VITALS: BP 144/58
[2019-11-17 05:08] LABS: HEMATOCRIT 24.6 % (37.0-47.0); HEMOGLOBIN 8.3 gm/dL (12.0-15.0); MCH 31.1 pg (26.0-34.0); MCHC 33.6 g/dL (28.0-37.0); MCV 92.6 fL (80.0-100.0); RBC 2.65 mil/uL (4.20-5.00); WBC 6.6 thou/uL (4.0-11.0)
[2019-11-17 05:28] LABS: CALCIUM 7.9 mg/dL (8.5-10.1); CREATININE 1.2 mg/dL (0.6-1.0); POTASSIUM 3.6 mmol/L (3.5-5.1)
[2019-11-17 07:57] VITALS: BP 150/62
[2019-11-17 12:42] VITALS: BP 144/70
[2019-11-17 16:32] VITALS: BP 133/70
--- NOTE | 2019-11-17 18:09 | NUR ---
ASSESSMENT CHARTED. PT ALERT AND ORIENTED. HAD SOB THIS AM. DR. PASTOR NOTIFIED. IV FLUIDS D/C. STARTED ON IV LASIX. RT TREATMENT PROVIDED ORDERED. SON UPDATED ON PT'S PROGRESS. WILL CONTINUE TO MONITOR.
[2019-11-17 20:29] VITALS: BP 145/75
--- NOTE | 2019-11-18 01:50 | NUR ---
ASSESSMENTS CHARTED, MEDS CHARTED GIVEN. PATIENT RESTING IN BED DURING SHIFT. TURNED CHARTED. FALL PRECAUTIONS IN PLACE DURING SHIFT. DENIED PAIN.
[2019-11-18 04:45] VITALS: BP 128/62; BP 147/69
[2019-11-18 05:42] LABS: CALCIUM 8.1 mg/dL (8.5-10.1); CREATININE 1.3 mg/dL (0.6-1.0); POTASSIUM 3.8 mmol/L (3.5-5.1)
--- NOTE | 2019-11-18 06:26 | NUR ---
PATIENT HAD GREEN LIQUID BOWEL MOVEMENT THIS MORNING. REFUSED MORNING PILLS. REPLACED IN PATIENT'S MED DRAWER.
[2019-11-18 07:40] VITALS: BP 148/54
[2019-11-18 11:45] VITALS: BP 123/51
[2019-11-18 16:30] VITALS: BP 125/52
--- NOTE | 2019-11-18 17:18 | NUR ---
ASSESSMENT CHARTED. PT ALERT AND ORIENTED. VSS. WOUND CARE PROVIDED. NSR ON TELE. SON AT THE BEDSIDE. NO CARDIAC OR RESPIRATORY DISTRESS NOTED.
[2019-11-18 19:59] VITALS: BP 132/55
[2019-11-19 04:28] LABS: CALCIUM 8.3 mg/dL (8.5-10.1); CREATININE 1.5 mg/dL (0.6-1.0); POTASSIUM 3.8 mmol/L (3.5-5.1)
[2019-11-19 05:21] VITALS: BP 137/59
--- NOTE | 2019-11-19 06:00 | NUR ---
ALERT,FORGETFUL.REPOSITIONED Q2 HOURS AND NEEDED.MONITOR SHOWS SR.POC CONTINUED.
[2019-11-19 08:03] VITALS: BP 123/54
[2019-11-19 11:40] VITALS: BP 131/58
[2019-11-19 13:14] LABS: URINE BILIRUBIN NEGATIVE (Negative); URINE BLOOD 1+ (Negative); URINE CLARITY CLEAR; URINE COLOR YELLOW; URINE GLUCOSE-RANDOM* NEGATIVE (Negative); URINE KETONES NEGATIVE (Negative); URINE LEUKOCYTES 2+ (Negative); URINE NITRITE NEGATIVE (Negative); URINE PROTEIN (DIPSTICK) NEGATIVE (Negative); URINE SPECIFIC GRAVITY 1.015 (1.005-1.035); URINE UROBILINOGEN 0.2 E.U./dl (0.2-1.0)
[2019-11-19 13:23] LABS: CASTS None Seen /LPF (None Seen); MUCUS 0-3 Light strn/LPF (None Seen); SQUAMOUS 4-10 Moderate /LPF (0-3)
[2019-11-19 13:24] LABS: BACTERIA 1-9 Few /HPF (None Seen); URINE RBC 0-2 Rare /HPF (0-2)
[2019-11-19 13:25] LABS: CRYSTALS None Seen /LPF (None Seen); WBC CLUMPS Few (None Seen); YEAST Present (None Seen)
[2019-11-19 13:27] LABS: URINE CREATININE-RANDOM* <13 mg/dL; URINE SODIUM-RANDOM* 111 mmol/L
[2019-11-19 17:07] VITALS: BP 133/53
--- NOTE | 2019-11-19 17:28 | NUR ---
ASSESSMENT CHARTED. PT ALERT X3 WITH FORGETFULNESS. TURNED AND REPOSITIONED Q 2 HOURS AND NEEDED. WOUND CARE PROVIDED. SR/ST ON TELE. RT TREATMENT PROVIDED ORDERED. PRN PAIN MED GIVEN WITH PARTIAL RELIEF. SON AT THE BEDSIDE. NEPHROLOGY CONSULTED. NO CONCERNS AT THIS TIME. PT PROGRESSING SLOWLY TOWARDS DISCHARGE GOAL.
[2019-11-19 20:15] VITALS: BP 143/55
--- NOTE | 2019-11-20 02:23 | NUR ---
REPOSITIONED Q2 HOURS AND NEEDED.DENIES PAIN AND SOB.MONITOR SHOWS SR. POSSIBLE D/C SOON.POC CONTINUED.
[2019-11-20 03:50] VITALS: BP 142/59
[2019-11-20 04:43] LABS: HEMATOCRIT 27.3 % (37.0-47.0); HEMOGLOBIN 8.8 gm/dL (12.0-15.0); MCH 29.9 pg (26.0-34.0); MCHC 32.4 g/dL (28.0-37.0); MCV 92.3 fL (80.0-100.0); RBC 2.95 mil/uL (4.20-5.00); RDW 18.4 % (10.5-14.5); WBC 5.6 thou/uL (4.0-11.0)
[2019-11-20 04:54] LABS: ALBUMIN 2.5 g/dL (3.4-5.0); CALCIUM 8.1 mg/dL (8.5-10.1); CREATININE 1.3 mg/dL (0.6-1.0); POTASSIUM 3.5 mmol/L (3.5-5.1); TOTAL BILIRUBIN 1.3 mg/dL (0.2-1.0); TOTAL PROTEIN 5.2 g/dL (6.4-8.2)
[2019-11-20 07:48] VITALS: BP 144/73
[2019-11-20 12:00] VITALS: BP 152/70
--- NOTE | 2019-11-20 14:47 | NUR ---
on-going assessment: CM REVIEWED CHART. PT IS SLOWLY PROGRESSING TOWARDS DISCHARGE GOALS. PATIENT IS LIKELY READY FOR SNF IN 1-2 DAYS. CM REACHED OUT TO SON TO SEE IF HE HAD A CHANCE TO REVIEW SNF LIST. HE REPORTS ALL THE SNF CHOICES ARE IN [place] FOR THE [employer] GOLD CHOICE PPO LIST HE RECEIVED. CM PROVIDED HIM WITH ANOTHER SNF LIST WITH [place] [facility]. HE WILL REVIEW LIST AND CONTACT CM BACK. CM WILL CONTINUE TO FOLLOW TO ASSIST NEEDED.
[2019-11-20 15:33] VITALS: BP 153/75
--- NOTE | 2019-11-20 17:44 | NUR ---
ASSUMED CARE OF PT AT SHIFT CHANGE. ASSESSMENTS CHARTED. MEDS GIVEN PER MAY. PT A&OX3, UNSURE OF TIME. NO C/O PAIN. BRIEF EPISODE OF N/V IN AM, YELLOW IN COLOR, NONE REST OF SHIFT. DRESSINGS CHANGED, WILL CONTINUE TO MONITOR.
[2019-11-20 20:30] VITALS: BP 131/70
[2019-11-21 04:25] LABS: ALBUMIN 2.5 g/dL (3.4-5.0); CALCIUM 7.5 mg/dL (8.5-10.1); CREATININE 1.1 mg/dL (0.6-1.0); PHOSPHORUS 2.6 mg/dL (2.5-4.9); POTASSIUM 3.2 mmol/L (3.5-5.1)
[2019-11-21 04:30] VITALS: BP 150/84
--- NOTE | 2019-11-21 04:35 | NUR ---
PATIENT IS [facility] SLOWLY IN HER CARE PLAN. VITAL SIGNS STABLE WITH PATIENT HAVING NO COMPLAINTS OF PAIN OR NAUSEA. MOSTLY ORIENTED, PATIENT IS ABLE TO CALL APPROPRIATELY FOR NEEDS AND PARTICIPATE IN CARE. BREATHING STABLE ON TWO LITERS NASAL CANNULA EVIDENCED BY ASSESSMENTS AND SPOT OXYGENATION CHECKS. FREQUENT TURNS WITH WOUND CARE DUE TO INCONTINENCE. PATIENT EDUCATED ON IMPORTANCE OF Q2 TURNS AND NOT REFUSING THEM. SWALLOW PRECAUTIONS FOLLOWED. CONTINUE PLAN OF CARE.
[2019-11-21 08:20] VITALS: BP 148/73
--- NOTE | 2019-11-21 10:45 | NUR ---
Met with son at bedside. He has reviewed skilled [employer] list. he questions staffing of facilities and cleanliness. Ensouraged son to research facilities of interest. He plans to review and return call to casemgr.
--- NOTE | 2019-11-21 11:13 | NUR ---
THE PATIENT'S DIET WAS UPGRADED TO NECTAR THICK LIQUIDS FOLLOWING THE VIDEO SWALLOW BUT PATIENT WAS FOUND EATING ICE CHIPS THIS MORNING. SHE APPEARS TO BE TOLERATING THESE WELL AND PLAN TO UPGRADE DIET TO THIN LIQUIDS ONCE IMPROVEMENT IN PULMONARY STATUS IS FOUND. RECOMMEND A REPEAT CHEST XRAY.
[2019-11-21 16:19] VITALS: BP 153/87
--- NOTE | 2019-11-21 18:48 | NUR ---
ASSUMED CARE OF PT AT SHIFT CHANGE. ASSESSMENTS CHARTED. MEDS GIVEN PER MAY. PT A&OX3, NOT SURE OF TIME. NO C/O PAIN OR DISTRESS. CT HEAD COMPLETE. PT HAD 2 MEDIUM LOOSE STOOLS. WAITING FOR SON TO DECIDE ON PLACEMENT. WILL CONTINUE TO MONITOR.
[2019-11-21 19:37] VITALS: BP 147/71
--- NOTE | 2019-11-22 01:30 | NUR ---
ASSUMED ARE FROM DAY SHIFT PT RESTING IN BED , LARGE AMOUNT OF WATERY STOOL NOTED , TEJAL CARE GIVEN, UNABLE TO KEEP COCCXY ON DUE FREQ STOOLS. DENIES PAIN, PT TURN EVERY 2 HOURS. IT CORPORATE RECRUITER SHOWS NSR. DISCUSSED POC AND VERBALIZED UNDERSTANDING AND AGREEABLE. PT RESTING WELL THROUGHOUT HOURLY ROUNDS, WILL REPORT CHANGES OR ABNORMAL FINDINGS.
[2019-11-22 03:50] VITALS: BP 154/80
[2019-11-22 05:18] LABS: ALBUMIN 2.4 g/dL (3.4-5.0); CALCIUM 7.4 mg/dL (8.5-10.1); POTASSIUM 3.1 mmol/L (3.5-5.1)
[2019-11-22 05:56] LABS: HEMATOCRIT 27.3 % (37.0-47.0); MCH 30.5 pg (26.0-34.0); MCV 92.3 fL (80.0-100.0); RBC 2.96 mil/uL (4.20-5.00); RDW 18.8 % (10.5-14.5)
[2019-11-22 07:45] VITALS: BP 128/75
--- NOTE | 2019-11-22 08:52 | NUR ---
ASSUMED CARE OF PT AT SHIFT CHANGE, WOUND CARE ENTERED SAME TIME, UNWRAPPED AND WORKED W/THEM, WILL RE-WRAP WHEN ABLE. SPEECH ASKS FOR CXR, STATES DR. BROWN AGREED TO ORDER. COMM W/PHYSICIAN TO ORDER IF APPLICABLE. PT W/SOA LYING IN BED YET INTERMITTENTLY. HELPED W/HER FEW DAYS AGO AND NOTICED SAME. PT IS A&0X3-4, FORGETFUL, KIND. ENCOURAGED TO USE CALL LIGHT FOR ANY NEEDS
[2019-11-22 12:00] VITALS: BP 149/74
[2019-11-22 16:00] VITALS: BP 152/75
--- NOTE | 2019-11-22 17:15 | NUR ---
have spoken with son earlier in day. He reports he and sister still reviewing. Alerted to please call casemgr with choice of facility.
[2019-11-22 20:30] VITALS: BP 127/61
[2019-11-22 23:52] VITALS: BP 142/73
[2019-11-23 03:02] VITALS: BP 124/90
[2019-11-23 04:00] LABS: ALBUMIN 2.3 g/dL (3.4-5.0); CALCIUM 7.1 mg/dL (8.5-10.1); CREATININE 0.8 mg/dL (0.6-1.0); PHOSPHORUS 2.6 mg/dL (2.5-4.9)
--- NOTE | 2019-11-23 04:46 | NUR ---
PT DENIES PAIN. FREQUENT DIARRHEA. POTTASIUM 2.9 THIS AM. PAROLE BOARD MEMBER NOTIFIED. DENIES CHEST PAIN. SR ON THE MONITOR. PINEDA INTACT AND PATENT. WILL REPLACE HER POTASIUM AND FOLLOW POC
[2019-11-23 04:47] LABS: POTASSIUM 2.9 mmol/L (3.5-5.1)
[2019-11-23 09:00] VITALS: BP 136/77
[2019-11-23 11:45] VITALS: BP 138/67
[2019-11-23] MEDS ORDERED: AUGMENTIN400 MG/53 PO (12:14)
[2019-11-23] MEDS ORDERED: VERAPAMIL HCL 880 M1 PO (12:15)
[2019-11-23] MEDS ORDERED: FLUCONAZOLE 10100 MG PO (12:15)
[2019-11-23] MEDS ORDERED: PROTONIX 20 MG20 M1 PO (12:16)
[2019-11-23] MEDS ORDERED: LIDOPATCH1 EACH TRANSDERM (12:17)
[2019-11-23 12:45] LABS: MAGNESIUM 1.4 mg/dL (1.8-2.4); POTASSIUM 3.4 mmol/L (3.5-5.1)
--- NOTE | 2019-11-23 14:22 | NUR ---
FAXED REFERRAL TO [facility] RECEIVED CONFIRMATION AND LEFT MSG WITH JAY IN ADM. DP TO FOLLOW.
--- NOTE | 2019-11-23 15:22 | NUR ---
Son did not return phone call. called son Gus. Jayne reports son took virtual tour. Son reports he stepped in to jayne to rec information and they were rude. He described encounter as they asked him to wait outside. They had no seating outside and he has to stand there. He noted staff coming in and not taking temperature. Report unaware of facilities guidelines but will request [facility] liason to call son to discuss. he reports he is also evaluting [facility] and possibly [facility]. Requested liason from [place] and [facility] call son to discuss facility. Updated phys.
[2019-11-23 16:30] VITALS: BP 120/58
[2019-11-23 20:45] VITALS: BP 137/64
[2019-11-24 04:20] VITALS: BP 149/72
--- NOTE | 2019-11-24 04:48 | NUR ---
ASSESSMENT: PT REMAIN ALERT AND ORIENT TIMES FOUR, FORGETFUL AT TIMES. TURNED Q TWO WHEN ALLOWED. C/O BACK PAIN. REPOSITION HELPING. SR FIRST DEGREE PER MONITOR. VSS, AFEBRILE. WOUNDS WITH DRESSINGS C/D/I. SLOW PROGRESS TOWARDS DC GOALS. WILL CONTINUE TO MONITOR.
[2019-11-24 05:21] LABS: ALBUMIN 2.5 g/dL (3.4-5.0); CALCIUM 7.2 mg/dL (8.5-10.1); CREATININE 0.7 mg/dL (0.6-1.0); PHOSPHORUS 2.7 mg/dL (2.5-4.9); POTASSIUM 3.1 mmol/L (3.5-5.1)
[2019-11-24 07:48] VITALS: BP 136/60
[2019-11-24 16:59] VITALS: BP 128/64
--- NOTE | 2019-11-24 19:24 | NUR ---
ASSUMED CARE OF PT AT SHIFT CHANGE. ASSESMENT CHARTED. MEDS GIVEN PER MAR. PT A&OX4, NO C/O PAIN OR SOA. PT ON 1L NC. APPETITE IS POOR, TAKES MEDS CRUSHED IN PUDDING OR APPLESAUCE. PREFERS ICE CHIPS. WILL CONTINUE TO MONITOR AND FOLLOW POC.
[2019-11-24 20:00] VITALS: BP 141/77
--- NOTE | 2019-11-24 21:31 | NUR ---
PROGRESS PT ALERT AND ORIENTED X4. DENIES PAIN , LUNGS WITH SOME CRACKLES NOTED IN BASES, REMAINS ON 1 LITER O2 VIA NC. TELE INTACT READING SR WITH RATE AT 84. SACRAL WOUND WITH DRSG INTACT, BILATERAL LE WOUNDS TO LEFT HEEL, LEFT LATERAL ANKLE AND LEFT LATERAL FOOT, AND SKIN TEARS NOT VISUALIZED, WRAPPED WITH ACEWRAP, GAUZE AND KERLIX. RIGHT LATERAL FOOT, AND ANKLE, LE ARE WRAPPED WITH KERLIX, GAUZE AND ACEWRAP ALL DRESSINGS REMAIN C/D/I. TRIPLE LUMEN CENTRAL LINE TO RIGHT SUBCLAVIAN WITH C/D/I TRANSPARENT DRESSING HAS GREAT BLOOD RETURN AND FLUSHES WITHOUT ANY DIFFICULTY. PT TO TRANSFER TO ROOM 451 AFTER REPORT GIVEN.
--- NOTE | 2019-11-24 23:07 | NUR ---
TRANSFER PT TRANSFERRED TO ROOM 451 REPORT GIVEN TO GAEL RN, PT TRANSPORTED VIA BED BY VAMP CREASER.
--- NOTE | 2019-11-25 04:41 | NUR ---
VSS-AFEBRILE. LUNGS CLEAR-1LNC IN PLACE. TRANSFERRED FROM . CALLS APPROPRIATELY FOR ANY NEEDED ASSISTANCE.
[2019-11-25 06:16] LABS: ALBUMIN 2.3 g/dL (3.4-5.0); CALCIUM 7.6 mg/dL (8.5-10.1); CREATININE 0.8 mg/dL (0.6-1.0); PHOSPHORUS 2.8 mg/dL (2.5-4.9); POTASSIUM 3.8 mmol/L (3.5-5.1)
[2019-11-25 07:09] VITALS: BP 145/81
--- NOTE | 2019-11-25 12:12 | NUR ---
VASCULAR ACCESS NURSE ROUNDING. THIS PATIENT IS ON 1 IVP MED. WITH THE CENTRAL LINE DRESSING CHANGE ON 11/23 THE INSERTION SITE WAS NOTED TO BE SLIGHTLY PINK WITH NO DISCHARGE AND NONTENENDER. SUGGEST REMOVAL OF CENTRAL ACCESS IF APPROPRIATE AND PERIPHERAL IV PLACEMENT.
--- NOTE | 2019-11-25 16:19 | NUR ---
PT A&OX4, VSS, GENERALIZED PAIN. DIARRHEA X3. PATIENT TURNED OFTEN. PATIENT REMAINS ON PUREED DIET UNTIL ABLE TO SEE SPEECH THERAPIST FOR EVALUATION. MAG 1.1 AND 400MG MAG GIVEN. NO SIGNS OF DISTRESS. WILL CONTINUE TO MONITOR.
[2019-11-25 16:24] VITALS: BP 139/69
[2019-11-25 20:01] VITALS: BP 142/64
--- NOTE | 2019-11-26 05:10 | NUR ---
VSS-AFEBRILE. ALERT AND ORIENTED X 4, LUNGS CLEAR-ROOM AIR. MAGNESIUM LOW, REPLACED THROUGH SHIFT PER ELECTROLYTE PROTOCOL. INCONTINENT OF TWO LIQUID STOOLS OVERNIGHT, BUTTOCKS ARE EXCORIATED WITH SORES, APPLIED LARGE AMOUNTS OF ZINC AND BARRIER CREAM. TURNED EVERY TWO HOURS TO AVOID DIRECT PRESSURE. C/O PAIN WITH SORES, MEDICATED EVERY 4 HOURS PER ORDERS, SUPPLEMENTED WITH TYLENOL NEEDED. CALLS APPRORPAIELY FOR ANY NEEDED ASSISTANCE, FALL PRECAUTIONS IN PLACE.
[2019-11-26 05:16] LABS: HEMATOCRIT 27.3 % (37.0-47.0); MCH 30.2 pg (26.0-34.0); MCHC 32.9 g/dL (28.0-37.0); MCV 91.7 fL (80.0-100.0); RBC 2.98 mil/uL (4.20-5.00); RDW 17.8 % (10.5-14.5); WBC 5.7 thou/uL (4.0-11.0)
[2019-11-26 05:40] LABS: CALCIUM 7.9 mg/dL (8.5-10.1); CREATININE 0.8 mg/dL (0.6-1.0); MAGNESIUM 1.9 mg/dL (1.8-2.4); POTASSIUM 3.6 mmol/L (3.5-5.1)
[2019-11-26 06:15] VITALS: BP 142/56
[2019-11-26 08:22] VITALS: BP 128/61
[2019-11-26] MEDS ORDERED: LACTULOSE20 GM/30 M PO (12:40)
--- NOTE | 2019-11-26 12:43 | NUR ---
Received awake on bed. Due medications given as prescribed, able to swallow meds w/o difficulty. A+Ox4. On telemetry, no complain of chest pain, crushing sensation and heaviness. On O2 at 1lpm via nasal cannula, on breathing treatments. Assisted in ADLs. On pureed diet- tolerating well; no nausea, no vomiting and no abdominal pain noted; assisted and encouraged in eating and drinking- on supplements as well. Visited by relative this afternoon- update gven. With pandey in place- output measured and recorded accordingly; jerad-care done. On blood sugar monitoring- taken and recorded accordingly; with sliding scale insulin ordered. Falls bundle in place. With R upper arm PICC line in place- dressing C/D/I. With redness and soreness on her buttocks- on low airloss mattress; pt turned on her sides. Pt very keen to go home today- Dr Tong informed. Pt seen and examined by Dr Tong this AM, pt to be discharged to SNF- CM informed; for paracentesis prior to discharge- IR consult to Dr Borjas called in to Staff Yasmine- pt is on today's procedure list- to have pt on NPO for now, pt and relative informed and updated. With wound at buttocks and legs- dressing C/D/I. To continue monitoring patient.
[2019-11-26 14:40] VITALS: BP 142/67
[2019-11-26 14:50] VITALS: BP 188/105
--- NOTE | 2019-11-26 14:54 | NUR ---
CM HAD SPOKEN WITH PT'S SON THIS DAY. HE INDICATED THAT HE HAD SPOKEN WITH THERAPY TEAM AT [facility] AND THAT OF RIGHT NOW THEY WOULD BE HIS FIRST CHOICE FOR SKILLED REHAB SERVICES [place]ON [place]. CM ASKED DC WATER QUALITY ANALYST TO FAX CLINICAL UPDATE TO [facility] ASKED THAT THEY SUBMIT FOR AUTH IF THEY ARE ABLE TO ACCEPT. PT TO HAVE PARACENTESIS THIS DAY. CM TO FOLLOW INDICATED WITH [facility] PLANN[facility].
--- NOTE | 2019-11-26 16:03 | NUR ---
FAXED CLINICAL UPDATE TO [facility] RECEIVED CONFIRMATION AND LEFT MSG WITH JUAN MANUEL IN ADM TO SUBMIT FOR AUTH IF THEY CAN ACCEPT.
[2019-11-26 20:18] VITALS: BP 132/65
--- NOTE | 2019-11-27 02:36 | NUR ---
PAIN CONTROLLED THIS SHIFT. PATIENT TURNED Q 2 HOURS. PATIENT ENCOURAGED FLUIDS. PATIENT INCONTIENT OF BOWEL PERICARE AND BARRIER CREAM APPLIED NEEDED.PATIENT IS ON 2L OF OXYGEN NO SOA OR DISTRESS NOTED THIS SHIFT.FALL PRECAUTION IN PLACE.PATIENT IN BED ASLEEP AT THIS TIME BREATHING REGULAR AND UNLABOURED.
[2019-11-27 06:05] VITALS: BP 133/56
[2019-11-27 07:18] VITALS: BP 132/52
--- NOTE | 2019-11-27 15:38 | NUR ---
CM SPOKE WITH PT'S SON THIS AM AND HE WAS AGREEABLE WITH UPDATES BEING SENT TO [facility] FOR THEM TO REVIEW. THEY WERE SENT AND [facility] SAID THEY CAN'T ACCEPT. UPDATES SENT TO [facility] TO REVIEW FOR POSSIBLE ADMISSION. CM NOTIFIED PT AND SPOUSE AT BEDSIDE THIS DAY. THEY ARE AWARE. CM TO FOLLOW INDICATED WITH [facility].
--- NOTE | 2019-11-27 16:39 | NUR ---
FAXED REFERRAL TO [facility] RECEIVED CONFIRMATION AND SPOKE WITH CHRIS IN ADM HE WILL REVIEW.
--- NOTE | 2019-11-27 19:11 | NUR ---
PT CARE ASSUMED AT 0700, PT ALERT AND ORIENTED X4, PT DENIES CHEST PAIN, NAUSEA AND VOMITTING. PT IS ON 1L OF OXYGEN NOW, NO SIGNS OF DISTRESS NOTED. PT VITAL SIGNS AND ASSESSMENT COMPLETED, PT IS ON TELEMETRY AND RUNNING SINUS RYTHM. PT WOUND CARE COMPLETED. REPOSIOTNED EVERY 2 HOURS. PT WAS INCONTINENT OF BOWEL 5 TIMES TODAY, CHANGFED ND SACRAL WOUND CARE DONE AFTER WARDS. FALL PRECAUTIONS IN PLACE. OT/PT CALLED ABOUT PT THERAPIES, I WAS TOLD THEY ARE BUSY [place] AND THEY WILL TRY AND GET TO HER WHEN THEY CAN. CALL LIGHT AND TABLE WITHIN REACH.
[2019-11-27 19:35] VITALS: BP 118/55
--- NOTE | 2019-11-28 03:51 | NUR ---
ASSUMED CARE OF PT AT 1900HRS. PT AOX3-4 AND LETS NEEDS BE KNOWN. FALL PRECAUTIONS IN PLACE. PT TURNED Q2-3HRS. PINEDA IN PLACE AND IS PATIENT. PT RUNNING SR ON TELE. O2 VIA NC AT 1L CONTINUED. LAP IN PLACE. PT REPORTED SOME PAIN AND WAS TREATED WITH PRN PAIN MEDS. PT DENIED NAUSEA OR SOA. PT HAD 1X LOOSE BM THIS SHIFT. ASSESSMENT CHARTED. PT WAS ABLE TO GET COMFORTABLE AND SLEEP PART OF THE SHIFT. VSS AND NO S/S OF ACUTE DISTRESS. WILL CONTINUE TO MONITOR.
[2019-11-28 05:31] VITALS: BP 141/66
--- NOTE | 2019-11-28 14:25 | NUR ---
[facility] IS ABLE TO ACCEPT PT FOR SKILLED THERAPY STAY. THEY ARE AWAITING INSURANCE AUTH. COVID TEST ORDERED. PT AND SON ARE AWARE AND AGREEABLE. CM TO FOLLOW INDICATED WITH DC PLANNING.
[2019-11-28 14:56] LABS: CALCIUM 7.6 mg/dL (8.5-10.1); CREATININE 0.8 mg/dL (0.6-1.0); MAGNESIUM 1.3 mg/dL (1.8-2.4)
--- NOTE | 2019-11-28 18:40 | NUR ---
ASSUMED CARE OF PATIENT AT SHIFT CHANGE. ASSESSMENT CHARTED. MEDS GIVEN PER MAY. VSS. PATIENT IS A&OX4 FORGETFUL AT TIMES, REPORTED, BUT NO TOTED ON THIS SHIFT. ADEQUATE APPETITE. WOUND CARE DONE TODAY ON SACRUM AND BLE BY THIS NURSE. C/O PAIN GENERALIZED. PRN ANALGESIC ADMINISTERED ORDERED. AWAITING INS. AUTHORIZATION OTHERWISE MEDICALLY STABLE. REPOSITIONED OFTEN ON LOW AIRLOSS MATTRESS. FALL PRECAUTIONS IN PLACE. WILL CONTINUE TO MONITOR
--- NOTE | 2019-11-28 19:02 | NUR ---
I AGREE WITH NURSING ASSESSMENT DONE BY SENA/SHEET CUTTING OPERATOR AND NURSING NOTE DONE BY SENA/SHEET CUTTING OPERATOR.
[2019-11-28 20:22] VITALS: BP 120/69
--- NOTE | 2019-11-29 03:15 | NUR ---
ASSUMED PT CARE AT SHIFT CHANGE. PT IS A&OX4. VSS. IV IS IN RIGHT SUBCLAVIAN. PT COMPLAINS OF PAIN AT A 7 AND 8. PT TAKES MEDICATIONS WHOLE. PT IS INCONTINENT. PT HAS A SMALL LIGHT BM. PINEDA CATHETER IN PLACE. PT HAS WOUNDS WITH ORDERS IN THE COMPUTER. LOW AIR LOSS MATRESS. PT HAS PERFO BOOTS ON. PT IS A Q2 TURN. PT PERFERS ICE AND LETTING IT MELT. WILL CONTINUE TO MONITOR.
[2019-11-29 05:49] LABS: CALCIUM 7.7 mg/dL (8.5-10.1); CREATININE 0.9 mg/dL (0.6-1.0); POTASSIUM 3.7 mmol/L (3.5-5.1)
[2019-11-29 07:31] VITALS: BP 113/53
--- NOTE | 2019-11-29 08:52 | NUR ---
Assumed patient care at 0715. Vital signs stable, LSCTA, ABD soft and non-tender, BS x's 4. She continues on O2 at 1 Liter per nc. She denies pain during this assessment. Patient compliant with medications. She is wearing her Prafo boots with pillows under and between knees. Pleasant and cooperative.
[2019-11-29 15:08] VITALS: BP 111/65
[2019-11-29 19:52] VITALS: BP 112/43
--- NOTE | 2019-11-30 03:21 | NUR ---
ASSUMED PT CARE AT 191. PT IS A&OX4. PT IS ON LOW AIR LOSS MATTRESS. PREFO BOOTS ON. PT IS A Q2 TURN. LINE IS IN THE RIGHT SUBCLAVIAN - TRIPPLE LUMEN. BLOOD SUGAR WAS 109. NO INSULIN NEEDED. PT STATES IN EXCHANGE OF REPORT THAT SHE WAS IN PAIN AND WANTED SOME FENTANYL. RELAYED THE REQUEST TO THE RN'S. ONCE FENTANYL WAS ADMINISTERED AT 2115, I PERFORMED THE DRESSING CHANGE ON BLE AND ON HER SACRAL WOUNDS. PT STATES THAT SHE RECIEVED PAIN RELIEF AND WAS COMFORTABLE. PT HAS RECIEVED TEJAL CARE AFTER HER DARK LIQUID STOOL. PT IS NOW SLEEP IN HER ROOM. WILL CONTINUE TO MONITOR.
[2019-11-30 06:04] LABS: HEMATOCRIT 27.4 % (37.0-47.0); HEMOGLOBIN 8.9 gm/dL (12.0-15.0); MCH 29.5 pg (26.0-34.0); MCHC 32.5 g/dL (28.0-37.0); MCV 90.8 fL (80.0-100.0); RBC 3.02 mil/uL (4.20-5.00); RDW 17.6 % (10.5-14.5); WBC 5.8 thou/uL (4.0-11.0)
[2019-11-30 06:24] VITALS: BP 133/57
[2019-11-30 06:59] VITALS: BP 124/55
--- NOTE | 2019-11-30 12:42 | NUR ---
SPOKE WITH CHRIS FROM [facility] HE RECEIVED AUTH FOR SKILLED STAY. PT DISCHARGING TODAY TO FACILITY FAXED DC ORDERS/SUMMARY SPOKE WITH CHRIS HE RECEIVED ORDERS AND THEY DO NOT HAVE STRETCHER VAN AVAILABLE SO I ARRANGED TRANSPORT WITH [facility] FOR 1300 TODAY. NOTIFIED PT'S SON FLAVIA OF DISCHARGE AND TIME OF TRANSPORT. UNIT NOTIFIED AND CHART COPY PER US. RN TO CALL REPORT TO [phone].
--- NOTE | 2019-11-30 13:02 | NUR ---
Central line pulled out according to Dr. Mak, pandey catheter out, patient tolerated well.
--- NOTE | 2019-11-30 13:47 | NUR ---
Report given to [phone], notified that the pandey catheter was taken out at 1pm, patient left the hospital at 1:05 pm. no urine output before leaving.
--- NOTE | 2019-11-30 14:17 | NUR ---
RECEIVED [facility] FOR PT TO GO TO [facility] THIS DAY. CHART COPY ORDERED. ORDERS FAXED. NURSE GIVEN NUMBER FOR REPORT. CM NOTIFIED PT AND SON. [facility]. NO OTHER CM INTERVENTION INDICATED. CASE CLOSED.
== END 2019-11-30 13:47 | DRG 870 ==
LOC: ER 01:49 → TBA 05:38 → ICU 05:38 → 2N 11-03 17:15 → ICU 11-04 22:11 → 2N 11-16 14:13 → 4W 11-24 23:02
PROVIDERS: Anesthesiology; Emergency Medicine; Hospitalist; Internal Medicine; Internal Medicine Nephrology; Internal Medicine Pulmonary Disease; Nurse Practitioner; Nurse Practitioner Family; Pediatrics; Specialist; ADMIT Internal Medicine; ATTEND Internal Medicine
PROC: 3E0G8GC Introduction of Other Therapeutic Substance into Upper GI, Via Natural or Artificial Opening Endoscopic (ICD-10-PCS; principal; 2019-10-26)
PROC: 30233R1 Transfusion of Nonautologous Platelets into Peripheral Vein, Percutaneous Approach (ICD-10-PCS; principal; 2019-10-26)
PROC: 30233N1 Transfusion of Nonautologous Red Blood Cells into Peripheral Vein, Percutaneous Approach (ICD-10-PCS; principal; 2019-10-26)
PROC: 05HY33Z Insertion of Infusion Device into Upper Vein, Percutaneous Approach (ICD-10-PCS; principal; 2019-10-26)
PROC: 30233M1 Transfusion of Nonautologous Plasma Cryoprecipitate into Peripheral Vein, Percutaneous Approach (ICD-10-PCS; principal; 2019-10-26)
PROC: 30233K1 Transfusion of Nonautologous Frozen Plasma into Peripheral Vein, Percutaneous Approach (ICD-10-PCS; principal; 2019-10-26)
PROC: 0BH17EZ Insertion of Endotracheal Airway into Trachea, Via Natural or Artificial Opening (ICD-10-PCS; 2019-10-28)
PROC: 5A1955Z Respiratory Ventilation, Greater than 96 Consecutive Hours (ICD-10-PCS; 2019-10-28)
PROC: 5A09357 Assistance with Respiratory Ventilation, Less than 24 Consecutive Hours, Continuous Positive Airway Pressure (ICD-10-PCS; 2019-11-01)
PROC: 5A09357 Assistance with Respiratory Ventilation, Less than 24 Consecutive Hours, Continuous Positive Airway Pressure (ICD-10-PCS; 2019-11-03)
PROC: 5A09357 Assistance with Respiratory Ventilation, Less than 24 Consecutive Hours, Continuous Positive Airway Pressure (ICD-10-PCS; 2019-11-04)
PROC: 0W9G3ZZ Drainage of Peritoneal Cavity, Percutaneous Approach (ICD-10-PCS; 2019-11-09)
PROC: 5A09357 Assistance with Respiratory Ventilation, Less than 24 Consecutive Hours, Continuous Positive Airway Pressure (ICD-10-PCS; 2019-11-09)
PROC: 0W9G3ZZ Drainage of Peritoneal Cavity, Percutaneous Approach (ICD-10-PCS; 2019-11-16)
PROC: 0W9G3ZZ Drainage of Peritoneal Cavity, Percutaneous Approach (ICD-10-PCS; 2019-11-26)
DX: A41.9 Sepsis, unspecified organism (principal); K26.4 Chronic or unspecified duodenal ulcer with hemorrhage; J96.21 Acute and chronic respiratory failure with hypoxia; L89.313 Pressure ulcer of right buttock, stage 3; L89.153 Pressure ulcer of sacral region, stage 3; L89.323 Pressure ulcer of left buttock, stage 3; R65.21 Severe sepsis with septic shock; R57.8 Other shock; N17.0 Acute kidney failure with tubular necrosis; J18.9 Pneumonia, unspecified organism; E43 Unspecified severe protein-calorie malnutrition; D62 Acute posthemorrhagic anemia; L03.116 Cellulitis of left lower limb; L03.115 Cellulitis of right lower limb; J98.11 Atelectasis; J91.8 Pleural effusion in other conditions classified elsewhere; E87.0 Hyperosmolality and hypernatremia; R18.8 Other ascites; I50.30 Unspecified diastolic (congestive) heart failure; G93.40 Encephalopathy, unspecified; I13.0 Hypertensive heart and chronic kidney disease with heart failure and stage 1 through stage 4 chronic kidney disease, or unspecified chronic kidney disease; Z20.828 Contact with and (suspected) exposure to other viral communicable diseases; F03.90 Unspecified dementia, unspecified severity, without behavioral disturbance, psychotic disturbance, mood disturbance, and anxiety; G47.00 Insomnia, unspecified; E78.5 Hyperlipidemia, unspecified; E11.621 Type 2 diabetes mellitus with foot ulcer; S90.822A Blister (nonthermal), left foot, initial encounter; K75.9 Inflammatory liver disease, unspecified; I95.9 Hypotension, unspecified; E87.6 Hypokalemia; E83.42 Hypomagnesemia; E83.39 Other disorders of phosphorus metabolism; E11.22 Type 2 diabetes mellitus with diabetic chronic kidney disease; N18.3 Chronic kidney disease, stage 3 (moderate); D63.8 Anemia in other chronic diseases classified elsewhere; E83.51 Hypocalcemia; S90.32XA Contusion of left foot, initial encounter; K74.60 Unspecified cirrhosis of liver; D69.6 Thrombocytopenia, unspecified; I48.0 Paroxysmal atrial fibrillation; G72.9 Myopathy, unspecified; E87.8 Other disorders of electrolyte and fluid balance, not elsewhere classified; Z90.710 Acquired absence of both cervix and uterus; Z90.49 Acquired absence of other specified parts of digestive tract; Z88.8 Allergy status to other drugs, medicaments and biological substances; X58.XXXA Exposure to other specified factors, initial encounter; Y93.89 Activity, other specified; Y92.89 Other specified places as the place of occurrence of the external cause; Z79.899 Other long term (current) drug therapy; Y99.8 Other external cause status
CPT/HCPCS: 10045; 10078; 10081; 10203; 62110; 62900; 65020; 65040; 65090; 85076

== ENCOUNTER 2019-12-27 23:27 | Inpatient (IN) | payer OTHER ==
[~2019-12-27] VITALS: Ht 162.6 cm; Wt 76.7 kg
--- NOTE | ~2019-12-27 | EMS ---
[address] [address] EMS Patient Care Report Name: RUT GUTHRIE Room #: CAMILLE Benedict#: [id number] Admission: 12/27/19 Attend Phys: Discharge: Date of : 40 Report #: [id number] THIS REPORT FOR: //name// Report Transmitted: 12/27/2019 23:03 EMS Care Summary [facility] MED-ACT Incident [id number] @ 12/27/2019 22:50 Incident Location [address] [place] [address] Patient RUT GUTHRIE Female, 79 Years 1940 Patient Address [address] [place] [address] Patient History Hyperlipidemia,Morbid Obesity,Urinary Tract Infection (UTI),Pneumonia,Anemia,Sepsis,Urinary Incontinence,Insomnia, Patient Allergies Cardizem, Patient Medications [place], Folic acid, Tylenol, Alprazolam, Voltaren, Verapamil, Omeprazole, Lidocaine, Lactulose, Levofloxacin, Chief Complaint "I'M MAD AT THE FACILITY." Disposition Transported No Lights/[place] Dispatch Reason Sick Person Transported To [facility] Narrative [address] [address] EMS Patient Care Report Name: RUT GUTHRIE Room #: REG Marichuy#: [id number] Admission: 12/27/19 Attend Phys: Discharge: Date of : 40 Report #: [id number] Upon arrival to the patient, the patient appeared to have no immediate life threats. The patient was noted to be CAOX4 with a GCS of 15. The patient was sitting upright in her chair in her room. The patient was with FD personnel and staff. The patient was noted by staff to have increased confusion. Staff stated that the patient had refused her night medications, and she would continue to take her oxygen cannula off. The patient kept stating to staff that she was mad at them. Staff called family and the transmission operator nurse practitioner. Both stated to send the patient to [facility] ER for evaluation. The patient agreed to go. She stated that she wanted to leave this facility. The patient was slid from her chair to the cot, secured, and moved to the ambulance. En route to the ER, vitals were obtained. The patient was transported with no problems and no complaints. The patient answered all questions appropriately. Report was called to the ER via radio. The patient was left in room ER eight with report given to RN. EMS returned to service. END OF REPORT. Initial Vitals @23:06P: 83,R: 17,BP: 148/73,Pain: 0/10,GCS: 15,Temp: 97.4F,Glucose: 112,SpO2: 100,Revised Trauma: 12, Assessments @23:31MENTAL:No Abnormalities,SKIN:No Abnormalities,HEENT:Head/Face: No Abnormalities,Eyes: No Abnormalities,Neck/Airway: No Abnormalities,LUNG SOUNDS:General: No Abnormalities,Left Upper: No Abnormalities,Right Upper: No Abnormalities,Left Lower: No Abnormalities,Right Lower: No Abnormalities,ABDOMEN:General: No Abnormalities,Left Upper: No Abnormalities,Right Upper: No Abnormalities,Left Lower: No Abnormalities,Right Lower: No Abnormalities,PELVIS//GI:No Abnormalities,EXTREMITIES:Left Leg: Edema,Right Leg: Edema,Left Arm: No Abnormalities,Right Arm: No Abnormalities,PULSE:NEURO:No Abnormalities, Impression No Complaints or Injury/Illness Noted Procedures @23:05Oxygen FlowRate: 4 Device: Nasal Cannula (NC) Response: ImprovedSucceeded@23:07Surgical Mask on PatientResponse: Unchanged@23:04StretcherResponse: Unchanged Timeline [facility] [address] [place] [address] EMS Patient Care Report Name: RUT GUTHRIE Room #: REG [id number] Admission: 12/27/19 Attend Phys: Discharge: Date of : 40 Report #: [id number] 22:48,Call Received 22:48,Psap Call 22:50,Dispatched 22:50,En Route 22:56,On Scene 23:00,At Patient 23:04,Stretcher,Response: Unchanged 23:05,Oxygen FlowRate: 4 Device: Nasal Cannula (NC) Response: ImprovedSucceeded, 23:06,BP: 148/73 M,PULSE: 83,RR: 17 R,SPO2: 100 Ox,ETCO2: ,B,PAIN: 0,GCS: 15, 23:07,Surgical Mask on Patient,Response: Unchanged 23:08,Depart Scene 23:22,At Destination 23:38,Call Closed Disclaimer v1.1 Copyright 2020 [employer] This EMS Care Summary contains data elements from the applicable legal record (which may be displayed differently). It is designed to provide pertinent information for the following purposes: continuity of care, clinical quality, and state data reporting. The complete legal record is available to ED staff and administrators of the receiving hospital in [employer] Patient Tracker. All data is provided "as is."
[~2019-12-27 23:27] MED LIST changes: +AUGMENTIN400 MG/53 PO; +FLUCONAZOLE 10100 MG PO; +LACTULOSE20 GM/30 M PO; +LEVOFLOXACIN750 MG PO; +LIDOPATCH1 EACH TRANSDERM; +PROTONIX 20 MG20 M1 PO; +VERAPAMIL HCL 880 M1 PO; +VOLTAREN GEL 1100 G1 TOP
[2019-12-27 23:30] VITALS: BP 145/73
[2019-12-28 00:29] VITALS: BP 145/73
[2019-12-28 01:33] LABS: URINE BILIRUBIN NEGATIVE (Negative); URINE BLOOD NEGATIVE (Negative); URINE CLARITY CLEAR; URINE COLOR YELLOW; URINE GLUCOSE-RANDOM* NEGATIVE (Negative); URINE KETONES NEGATIVE (Negative); URINE LEUKOCYTES-REFLEX TRACE (Negative); URINE NITRITE-REFLEX NEGATIVE (Negative); URINE PROTEIN (DIPSTICK) NEGATIVE (Negative); URINE SPECIFIC GRAVITY >= 1.030 (1.005-1.035); URINE UROBILINOGEN 0.2 E.U./dl (0.2-1.0)
[2019-12-28 01:37] LABS: HEMATOCRIT 33.6 % (37.0-47.0); HEMOGLOBIN 10.6 gm/dL (12.0-15.0); MCH 29.4 pg (26.0-34.0); MCHC 31.6 g/dL (28.0-37.0); RBC 3.61 mil/uL (4.20-5.00); RDW 15.9 % (10.5-14.5); WBC 6.9 thou/uL (4.0-11.0)
[2019-12-28 01:39] LABS: ANION GAP 2 mmol/L (7-16); BUN 10 mg/dL (7-18); CALCIUM 8.9 mg/dL (8.5-10.1); CHLORIDE 104 mmol/L (98-107); CO2 37 mmol/L (21-32); CREATININE 0.6 mg/dL (0.6-1.0); GLUCOSE 95 mg/dL (74-106); POTASSIUM 4.5 mmol/L (3.5-5.1); SODIUM 143 mmol/L (136-145)
[2019-12-28 01:50] LABS: ALBUMIN 2.8 g/dL (3.4-5.0); DIRECT BILIRUBIN 0.3 mg/dL (<0.1-0.2); LIPASE 101 U/L (73-393); SGOT 67 U/L (15-37); SGPT 24 U/L (30-65); TOTAL BILIRUBIN 0.6 mg/dL (0.2-1.0); TOTAL PROTEIN 6.4 g/dL (6.4-8.2); TROPONIN-I <0.06 ng/mL (<0.06)
[2019-12-28 08:24] LABS: INR 1.2; PROTIME 12.5 Seconds (9.3-11.4)
[2019-12-28 08:32] LABS: D-DIMER 8.57 ug/mLFEU (0.19-0.50)
--- NOTE | 2019-12-28 10:11 | NUR ---
SON FLAVIA GUTHRIE [phone], SPOKE WITH FACILITY TO GET INFOMRATION ON WHO USUALLY MAKES MEDICAL DECISIONS AND PER ANOTHY AT THE FACILITY PT USUALLY DOES. ULTRASOUND WILL CALL SON TO SEE IF HE WILL SIGN CONSENT PT IS AMS AT THIS TIME. [facility] [phone]
[2019-12-28] MEDS ORDERED: ACETAMINOPHEN325 M1 PO (10:16)
[2019-12-28] MEDS ORDERED: ASCORBIC ACID500 MG PO (10:17)
[2019-12-28] MEDS ORDERED: MILK OF MA400 MG/5 M PO (10:21)
[2019-12-28] MEDS ORDERED: NORCO 5-325 TA1 EAC2 PO (10:23)
[2019-12-28] MEDS ORDERED: OMEPRAZOLE 20 M20 M1 PO (10:24)
[2019-12-28 12:39] LABS: CLARITY CLOUDY; COLOR RED; SOURCE THORACENTESIS; TOTAL VOLUME 65 mL
[2019-12-28 13:16] LABS: BF NUCLEATED CELLS 1526 /mm3; BF RBC 28256 /mm3
[2019-12-28 14:19] LABS: BF NEUTROPHILS 0 %
[2019-12-28 14:20] LABS: BF MACROPHAGE 36 %
[2019-12-28 20:25] VITALS: BP 120/59
--- NOTE | 2019-12-28 20:30 | NUR ---
HANDS OFF TOOL FAXED TO FLOOR
[2019-12-28 21:01] VITALS: BP 131/64
[2019-12-28 23:18] VITALS: BP 119/59
--- NOTE | 2019-12-29 00:16 | NUR ---
PT ARRIVED TO THE UNIT FROM THE ED AT AROUND 2145 HRS.SHE IS ALERT TO SELF AND TIME. FORGETFUL. INCONTINENT OF B/B. SHE IS ON / AND APPEARS STABLE@SATS OF 100%.ABDOMINAL ASCITES NOTED. BLE LYMPHEDEMA, BOGGY HEELS. LEGS ELEVATED ON PILLOWS. PT DENIES COUGH AT THIS TIME, ORDER FOR SPUTUM PENDING.REDNESS TO SACRUM WITH AN OPEN SPOT, PICTURES TAKEN. PT REQUIRES Q2HR TURN AND APPLICATION OF ZGUARD PER ORDERS.PERICARE PROVIDED. SHE TURNS FROM SIDE TO SIDE WITH GOOD ENDURANCE.LIPS CRACKED WITH SOME BROWN SCABS.AFEBRILE. WILL COLLECT MRSA SAMPLE FROM [facility] PER ID ORDER. WILL CONTINUE WITH ORDER FOR IV ABTS.SHE IS AFEBRILE. RIGHT NOW SHE IS QUIETLY RESTING WITH EYES CLOSED.
[2019-12-29 06:11] LABS: HEMATOCRIT 31.5 % (37.0-47.0); HEMOGLOBIN 10.1 gm/dL (12.0-15.0); MCH 30.1 pg (26.0-34.0); RBC 3.35 mil/uL (4.20-5.00); RDW 16.6 % (10.5-14.5); WBC 7.5 thou/uL (4.0-11.0)
[2019-12-29 06:42] LABS: ALBUMIN 2.3 g/dL (3.4-5.0); CALCIUM 8.6 mg/dL (8.5-10.1); CREATININE 0.7 mg/dL (0.6-1.0); MAGNESIUM 1.3 mg/dL (1.8-2.4); TOTAL BILIRUBIN 0.6 mg/dL (0.2-1.0); TOTAL PROTEIN 5.5 g/dL (6.4-8.2)
[2019-12-29 07:45] VITALS: BP 122/58
[2019-12-29 08:25] LABS: SOURCE CHEST
--- NOTE | 2019-12-29 13:32 | NUR ---
Assuming care of pt at 0700. Pt confused and forgetful but follows commands. Zguard applied on bottom. IV antibiotics infusing. Blood sugar 61 this am. Pt NPO at the time. Provider notified. New order noted. Call light within reach. Fall precautions in place. Will continue to monitor.
[2019-12-29] MEDS ORDERED: ASA81BEC PO (16:21)
[2019-12-29 16:25] VITALS: BP 129/64
[2019-12-29 20:41] VITALS: BP 134/80
--- NOTE | 2019-12-30 03:57 | NUR ---
PT LYING IN BED. TYLENOL PROVIDING PAIN RELIEF. RESTING COMFORTABLY. NO NEEDS VOICED. CALL LIGHT WITHIN REACH. FREQUENT OBSERVATION.
[2019-12-30 05:37] LABS: HEMATOCRIT 31.9 % (37.0-47.0); HEMOGLOBIN 10.4 gm/dL (12.0-15.0); MCH 30.2 pg (26.0-34.0); MCHC 32.5 g/dL (28.0-37.0); MCV 92.8 fL (80.0-100.0); RBC 3.44 mil/uL (4.20-5.00); RDW 16.2 % (10.5-14.5); WBC 8.5 thou/uL (4.0-11.0)
[2019-12-30 06:19] LABS: ALBUMIN 2.3 g/dL (3.4-5.0); CALCIUM 8.3 mg/dL (8.5-10.1); CREATININE 0.8 mg/dL (0.6-1.0); MAGNESIUM 1.2 mg/dL (1.8-2.4); POTASSIUM 3.3 mmol/L (3.5-5.1); TOTAL BILIRUBIN 0.5 mg/dL (0.2-1.0); TOTAL PROTEIN 5.4 g/dL (6.4-8.2)
--- NOTE | 2019-12-30 07:52 | HC ---
[facility] [place] [address] CONSULTATION Name: RUT GUTHRIE Room #: 443-P ADM IN M.R.#: [id number] Admission: 12/28/19 Attend Phys: Cristopher Suarez MD Discharge: Date of : 40 Report #: [id number] THIS REPORT FOR: cc: Carlos Ramirez MD, John MD McKittrick,Will Robins MD ~ REQUESTING PHYSICIAN: Cristopher Suarez MD REASON FOR CONSULTATION: Possible breast mass with possible bony changes and bilateral pleural effusions. HISTORY OF PRESENT ILLNESS: The patient is a 79-year-old female who resides as an outpatient in [facility] with her son by her report. She has been in the hospital back in October for a number of things. She was brought in for increasing confusion and shortness of breath. Supposedly, she had been told the day before that she might have pneumonia, begun on p.o. Levaquin. The family was concerned that she was more confused than usual and she was more short of breath than usual. The patient is a poor historian and cannot really tell me about why she came to the hospital. She does on review of systems start by being tired and slightly short of breath. She denies any pain, nausea, vomiting, diarrhea and constipation. She is aware of her foot ulcers. When asked about the question of the left breast mass, she said that she thought she had this evaluated before and she thinks she is up-to-date on her mammograms, which she reports obtaining at [facility]. We will check with Dr. Ramirez at [facility] to see indeed whether this is old information or whether she has had up-to-date mammograms or imaging. PAST MEDICAL HISTORY: Apparently notable for a history of dementia, also possible atrial fibrillation, also hyperlipidemia, diabetes type 2, history of duodenal ulcer with GI bleed back in 10/2019 at this facility. Recent CAT scan raised the question of possible liver disease with ascites and portal hypertension. Also, she has bilateral lower extremity wounds and bilateral ischial wounds. She also has bilateral chronic lymphedema of both extremities. PAST SURGICAL HISTORY: Reportedly notable for cholecystectomy, hysterectomy, paracentesis. She now has had a thoracentesis, also EGD back in October. 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 No reported recent alcohol, tobacco or recreational drug use. MEDICATIONS: At this time in the hospital currently include vancomycin [address] [address] CONSULTATION Name: RUT GUTHRIE Abel Room #: 443-P [facility] IN M.R.#: [id number] Admission: 12/28/19 Attend Phys: Cristopher Suarez MD Discharge: Date of : 40 Report #: [id number] q. 12 IV, Zosyn 3.375 grams IV q. 8, pantoprazole 40 daily, Zofran p.r.n., Tylenol p.r.n. LABORATORY DATA: Lab review here, had 950 mL left thoracentesis, I believe cytology is pending. BUN on admit 10 with a creatinine of 0.6. AST elevated at 67, note this has been persistent since back in October when it was actually higher for a while. Total bilirubin 0.6, calcium 8.9, magnesium slightly low at 1.3, alkaline phosphatase 268, note that is slightly higher than the Goodwell values. ALT 18 that is the lowest it has been in several months. Albumin 2.3. Ammonia 20. INR 1.2. White count 7.5, hemoglobin 10.1 higher than back in October when she was in the 8 and 9 after her GI bleed, MCV 94, RDW 16.6, platelets 191. Differential not obtained this admission. Last time had not shown any acute changes. Ferritin recently 816. Folate back in October was 7.7 which is low. Vitamin B12 in September had been 786, normal. Influenza or respiratory panel is pending. UA recently appeared to be negative for bacteria if I understand correctly, also negative for nitrite. IMAGING: This admission notable for CT chest, abdomen and pelvis with report mentioning large left pleural effusion and moderate right pleural effusion. Small mediastinal and axillary lymph nodes. Marked edema and mass effect present on left breast and left chest wall. Large amount of intra-abdominal ascites. Small liver with nodular surface consistent with cirrhosis. Splenomegaly consistent with portal hypertension. There also had been mentioned in ____ report about concern of sclerotic and lytic lesions throughout her vertebral bodies and in the pelvis, suspicious for osseous metastatic disease with similar findings present in thoracic spine. PHYSICAL EXAMINATION: GENERAL: The patient appears her stated age, is an elderly white female, lying in a hospital bed. VITAL SIGNS: Height is 5 feet 4 inches, which is 162.6 cm. Weight is 169.2 pounds or 76.7 kilograms. Note that her weight the day before ____ was reported as 130 pounds or 58.9 kilograms. Blood pressure recently 119/59, O2 sat 100%, respirations 17, pulse 81, afebrile with a recent temperature of 98.2. The patient currently receiving oxygen at 3 liters per minute with an O2 sat of 100%. NEUROLOGIC: The patient is awake. Her speech and thought pattern appeared to be mostly normal, though I am questioning whether she is a reliable historian because I read the charts ____ do not appear to be congruent with that. HEENT: Face appears symmetrical. LUNGS: Without use of accessory muscles, stridor or rhonchi. Does have decreased bases, particularly in the right. Left breast does have some thickening in the lower outer quadrant with some redness of the skin that could be consistent with either underlying malignancy or perhaps could be chronic [facility] [address] [address] CONSULTATION Name: RUT GUTHRIE Abel Room #: [address] [place] [address] IN M.R.#: [id number] Admission: 12/28/19 Attend Phys: Cristopher Suarez MD Discharge: Date of : 40 Report #: [id number] changes. We will get outside films as mentioned. ABDOMEN: Quite distended, nontender, not painful. EXTREMITIES: Significant chronic edema, did not examine wounds. ASSESSMENT AND PLAN: 1. Left breast abnormalities. We will obtain outside imaging from [facility]. If done recently, would consider ultrasound and/or mammogram and if worse, then may consider biopsy. 2. Bilateral pleural effusions, unclear etiology, may be malignant. Await cytology from left thoracentesis. 3. Probable cirrhosis and ascites. We will defer to GI. 4. Dementia. Meds per others. 5. Diabetes type 2. Monitoring and meds per others. 6. Hyperlipidemia. Meds and monitoring per others. 7. Possible history of atrial fibrillation. Meds per others. 8. Chronic lower extremity wounds per wound care, Dr. Hanson. 9. Chronic lymphedema per others. We will follow with you. <ELECTRONICALLY SIGNED> By: Will Magdaleno MD 12/30/19 0752 0927 1201 Will Magdaleno MD /nt
[2019-12-30 08:00] VITALS: BP 135/63
--- NOTE | 2019-12-30 08:09 | NUR ---
PATIENT RESTING IN BED NO PAIN OR RESP DISTRESS. THIS NURSE CHECKED V.S. SEE CHART.
[2019-12-30 10:06] LABS: BODY FLUID ALBUMIN 1.7 g/dL (Not Estab.); BODY FLUID AMYLASE 35 U/L (()); BODY FLUID GLUCOSE 99 mg/dL (()); BODY FLUID LDH 127 IU/L (()); BODY FLUID PROTEIN 2.9 g/dL (())
--- NOTE | 2019-12-30 11:26 | NUR ---
PINEDA CATH INSERTED SIXTEEN FR WITH IMMEDIATE RETURN OF CLEAR YELLOW URINE. MINIMAL DISCOMFORT TO PATIENT. PT HAD LOOSE STOOL PT CLEANED AND BED LINEN CHANGE,CREAM TO BUTTOCKS AND HEEL PROTECTORS TO CONNIE FEET.PT W/O PAIN OR RESP DISTRESS.
--- NOTE | 2019-12-30 12:58 | NUR ---
TOOK URINE SPECIMEN TO LAB FOR LEGIONELLA AG AND STREP PNEUMO AG TESTING AT THIS TIME.
[2019-12-30 14:00] VITALS: BP 146/76
--- NOTE | 2019-12-30 15:06 | NUR ---
SPOKE WITH SON WHO STATED PATIENT HAS HAD BREAST MASS FOR YEARS DOES NOT WANT MAMMOGRAM DONE HERE AND DOES NOT WANT US OF BREAST THE SON AND DAUGHTER SPOKE WITH DR VILLAREAL ON THE PHONE. NO TREATMENTS OR TESTS AT THIS TIME PER SON AND DAUGHTER REQUEST. SON WILL TAKE PT FOR OUT PT MAMMOGRAM AFTER PATIENT IS DISCHARGED AND IS HOME. CHEST XRAY DONE AND PT THERAPY HERE TO ASSESS PATIENT.
--- NOTE | 2019-12-30 15:28 | NUR ---
DR LEÓN CALLED AND UPDATED ABOUT FAMILY SPEAKING WITH DR VILLAREAL AND NOT WANTING MAMMOGRAM AND ULTRASOUND DONE HERE AT HOSPITAL.
[2019-12-30 20:50] VITALS: BP 141/74
--- NOTE | 2019-12-31 05:10 | NUR ---
PT LYING IN BED. TYLENOL PROVIDING PAIN RELIEF. RESTING COMFORTABLY. NO NEEDS VOICED. CALL LIGHT WITHIN REACH. FREQUENT OBSERVATION.
[2019-12-31 07:08] LABS: HEMATOCRIT 36.2 % (37.0-47.0); HEMOGLOBIN 11.3 gm/dL (12.0-15.0); MCH 29.5 pg (26.0-34.0); MCHC 31.3 g/dL (28.0-37.0); MCV 94.2 fL (80.0-100.0); RBC 3.84 mil/uL (4.20-5.00); RDW 17.2 % (10.5-14.5); WBC 8.2 thou/uL (4.0-11.0)
[2019-12-31 07:52] LABS: ALBUMIN 2.3 g/dL (3.4-5.0); CALCIUM 8.6 mg/dL (8.5-10.1); CREATININE 0.7 mg/dL (0.6-1.0); MAGNESIUM 1.7 mg/dL (1.8-2.4); POTASSIUM 3.4 mmol/L (3.5-5.1); TOTAL BILIRUBIN 0.5 mg/dL (0.2-1.0); TOTAL PROTEIN 5.5 g/dL (6.4-8.2)
[2019-12-31 08:00] VITALS: BP 140/78
--- NOTE | 2019-12-31 13:17 | NUR ---
ASSESSMENT: CM REVIEWED CHART AND SPOKE WITH PATIENT. CM ALSO SPOKE WITH PATIENTS SON FLAVIA THAT SHE LIVES WITH. PT WAS ADMITTED FROM [facility] DUE TO ACUTE RESPIRATORY FAILURE WITH HYPOXIA. PT HAD THORACENTESIS ON 12/27. SON FLAVIA REPORTS ON THE DAY PATIENT WAS SUPPOSED TO DISCHARGE FROM [place] SHE HAD TO END UP BEING ADMITTED TO THE HOSPITAL. PT LIVES AT HOME WITH FLAVIA AND USES A WALKER FOR AMBULATION. PT HAS HAD [facility] IN THE PAST. CM DISCUSSED ROLE. PHYSICAL THERAPY IS RECOMMENDING SNF AGAIN AT DISCHARGE. PT AND SON ARE AGREEABLE TO GO BACK TO [facility]. CM FAXED CLINICAL BACK TO [place] AND SPOKE WITH CHRIS AND NOTIFIED HIM TO START INSURANCE AUTH IF THEY CAN ACCEPT HER BACK. CM WILL CONTINUE TO FOLLOW TO ASSIST NEEDED.
[2019-12-31 16:10] VITALS: BP 130/65
--- NOTE | 2019-12-31 17:06 | PATH ---
[facility] [address] [place] [address] PATHOLOGY RPT PROCEDURE Name: RUT GUTHRIE Room #: 443-P ADM IN M.R.#: [id number] Admission: 12/28/19 Date of : 40 Discharge: Report #: [id number] Path Case #: [id number] Note [facility] Accession Number: [id number] TESTS RESULT FLAG UNITS REF RANGE LAB Clinician Provided Cytology Information No. of containers..01 Other (Miscellaneous) Source: 01 PLEURAL FLUID DIAGNOSIS: 02 PLEURAL FLUID NEGATIVE FOR MALIGNANT CELLS. REACTIVE MESOTHELIAL CELLS ARE PRESENT. THIS INTERPRETATION INCLUDES EVALUATION OF A CELL BLOCK. Signed out by: 02 Mario Alberto Emmanuel MD, Pathologist NPI- [id number] Performed by: 01 Jana Monet, [employer] ([facility]) Gross description: 01 25ML, RED, 1 TP 1 CB /LCS 12/28/2019 1728 Local FLAG LEGEND: L-Low Normal,H-High Normal,LL-Alert Low,HH-Alert High <-Panic Low,>-Panic High,A-Abnormal,AA-Critical Abnormal Performed at: [address] [place] [address] Rafy Teran MD, [address] [place] [phone] Mario Alberto Emmanuel MD, Specimen Comment: A courtesy copy of this report has been sent to [phone], [phone]- Specimen Comment: 4000 Specimen Comment: Report sent to / DR BARKER Specimen Comment: A duplicate report has been generated due to demographic updates. Performed at: [address], [place], [place] [id number] MD Rafy Teran MD Phone: [phone]
--- NOTE | 2019-12-31 18:31 | NUR ---
PT A&OX3, VSS, DENIES PAIN. PATIENT HAS REDNESS ON COCCYX AND CARED FOR PER WOUND ORDERS AND LEFT FOOT. IV PATENT. PATIENT HAS POOR APPETITE. DIET CHANGED TO MECHANICAL CHOPPED TO SEE IF SHE BETTER TOLERATES. PATIENT ON 2L OXYGEN. PINEDA CATHETER PATENT AND CARED FOR. PATIENT MAX ASSIST TO BSC, BUT PREFERS BEDPAN. PATIENT ABLE TO MOVE SELF IN BED. NO SIGNS OF DISTRESS. WILL CONTINUE TO MONITOR.
[2019-12-31 19:59] VITALS: BP 147/68
--- NOTE | 2020-01-01 04:06 | NUR ---
ASSUMED PT CARE AT 1900.PT ALERT/CONFUSED AND FORGETFUL.PT DENIED PAIN SO FAR. PT REPOSITIONED WHILE IN BED.PINEDA CATH TO DD.PRAFO BOOTS TO BLE.PT ON 2L/NC,SAT AT 96%.PT SLEEPING ON HER BED ATTHIS TIME.FALL PRECAUTIONS IN PLACE,CALL LIGHT WITHIN REACH.
[2020-01-01 04:22] VITALS: BP 126/69
[2020-01-01 04:27] LABS: HEMATOCRIT 31.6 % (37.0-47.0); HEMOGLOBIN 10.1 gm/dL (12.0-15.0); MCH 29.8 pg (26.0-34.0); MCHC 31.9 g/dL (28.0-37.0); MCV 93.5 fL (80.0-100.0); RBC 3.38 mil/uL (4.20-5.00); RDW 16.6 % (10.5-14.5); WBC 6.8 thou/uL (4.0-11.0)
[2020-01-01 04:47] LABS: ALBUMIN 2.2 g/dL (3.4-5.0); CALCIUM 8.5 mg/dL (8.5-10.1); CREATININE 0.7 mg/dL (0.6-1.0); MAGNESIUM 1.5 mg/dL (1.8-2.4); POTASSIUM 3.2 mmol/L (3.5-5.1); TOTAL BILIRUBIN 0.6 mg/dL (0.2-1.0); TOTAL PROTEIN 5.3 g/dL (6.4-8.2)
[2020-01-01 07:55] VITALS: BP 143/70
--- NOTE | 2020-01-01 10:26 | NUR ---
Recommend start folate and vitamin D supplementation-pt has hx of deficiency based on Oct 2019 lab values
[2020-01-01 11:55] VITALS: BP 132/66
--- NOTE | 2020-01-01 11:56 | NUR ---
I HAVE REVIEWED THE STUDENT DOCUMENATION
--- NOTE | 2020-01-01 12:02 | NUR ---
Patient was pleasant. Patient was cooperative with staff.
--- NOTE | 2020-01-01 13:47 | NUR ---
ON-GOING ASSESSMENT: CM REVIEWED CHART AND SPOKE WITH ATTENDING. PT IS PROGRESSING TOWARDS DISCHARGE GOALS. NI SPOKE WITH CHRIS AT [facility] WHO REPORTS THEY HAVE SUBMITTED FOR AUTH BUT DO NOT HAVE A DETERMINATION AT THIS TIME. CM FAXED UPDATED CLINICAL TO [facility]. CM ALSO SPOKE WITH PATIENTS SON FLAVIA TO UPDATE HIM. CM WILL CONTINUE TO FOLLOW TO ASSIST NEEDED.
--- NOTE | 2020-01-01 16:17 | NUR ---
on-going assessment: CM RECEIVED A CALL FROM CHRIS CASIANO WATERLOO WHO REPORTS PATIENTS INSURANCE IS REQUESTING A PEER TO PEER BEFORE A DETERMINATION IS MADE FOR SNF. THEY REQUEST TO CALL THEM AT [phone] OPT 5 BY NOON ON 01/02/20. CM ASKED FOR REF# BUT NO REF # WAS GIVEN SO SNF IS CALLING BACK TO SEE IF THERE IS ONE FOR WHEN THE PHYSICIAN CALLS. CM NOTIFIED ATTENDING. CM WILL CONTACT FIRST THING IN THE AM TO TRY AND ARRANGE THE PEER TO PEER.
[2020-01-01 16:21] VITALS: BP 120/50
--- NOTE | 2020-01-01 19:43 | NUR ---
Assumed care of pt. at 0700. Pt. was calm and cooperative. Pt. did complain of pain in the later afternoon in the R. Knee. Dr. Suarez notified, X-Rays taken of R. knee. Pt. had large BM at end of shift, wounds cleaned. Fall precautions in place.
[2020-01-01 20:00] VITALS: BP 147/73
--- NOTE | 2020-01-02 05:13 | NUR ---
ASSUMED PT'S CARE THIS PM SHIFT. O2 SATTING IN THE 86-88% RANGE ON 1L. BUMPED UP TO 2L NOW SATTING IN THE 95's. PT HAD AN EPISODE OF BOWEL INCONTINENCE BEGINNING OF SHIFT. Q2 TURN. WOUNDS TO SACRUM AND L/ LATERAL LEG CLEANED. LEFT HEEL OFFLOADED ON A PILLOW TO ALLOW WOUND FREELANCE PROGRAMMER/APP DEVELOPER. FALL PRECAUTION IN PLACE. PINEDA FOR VOIDING. CALL LIGHT WITHIN REACH. WILL CONTINUE TO MONITOR.
[2020-01-02 08:24] VITALS: BP 146/75
--- NOTE | 2020-01-02 14:19 | NUR ---
on-going assessment: CM REVIEWED CHART AND SPOKE WITH ATTENDING. ATTENDING COMPLETED THE PEER TO PEER FOR SNF TODAY AND IT WAS DENIED. THEY STATED PT IS MORE APPROPRIATE FOR LTC AND THEY ARE NOT GOING TO APPROVE SNF. NI SPOKE WITH PATIENTS SON FLAVIA WHO SHE LIVES WITH TO NOTIFY HIM. HE REPORTS HE WILL NOT PUT HIS MOTHER IN A LTC FACILITY ESPECIALLY NOW. 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 HE STATES HIS SISTER LIVES CLOSE AND HE ALSO HAS A NIECE AND NEPHEW THAT CAN ASSIST WITH PATIENT. CM REACHED OUT TO PT/OT TO NOTIFY THEM THAT PATIENT WAS DENIED SNF AND PATIENT IS LIKELY HOME WITH HH TOMORROW. THEY WORKED WITH PATIENT AND ARE RECOMMENDING A WHEELCHAIR WELL A HOYLER LIFT FOR HIM. NI SPOKE WITH SON FLAVIA WHO REPORTS NO PREFERENCE OF [employer]. NI SPOKE WITH PROVIDER [employer] WHO DOES NOT ACCEPT [employer]. NI SPOKE WITH JESSICA AT [facility] WHO REPORTS THEY ACCEPT [employer] AND HAVE A ANIYAH CURRENTLY IN STOCK BUT HE WILL NEED CHART NOTES/ SCRIPTS/ PROGRESS NOTES STATING THE NEED FOR THESE ITEMS. CM NOTIFIED ATTENDING. CM FAXED SOME CLINICAL TO [facility] ALONG WITH THE SCRIPTS. NI ALSO SPOKE WITH SON FLAVIA WHO REPORTS THEY HAVE [facility] IN THE PAST AND PREFER TO USE THEM AGAIN. CM FAXED REFERRAL AND THEY CAN ACCEPT HER FOR HH AT DISCHARGE.
[2020-01-02 14:54] VITALS: BP 146/75
--- NOTE | 2020-01-02 15:31 | NUR ---
Assumed care of pt. at 0700. Pt. was calm and cooperative. Pt. worked with PT today on transfering from bed to wheelchair. Transfer needed to be 90% dependent. CM informed as prep needed for discharge to home with son. Pt. occassionally complained of pain in R. Knee and was given tylenol which was effective in decreasing pain. Wound documentation/pictures taken. Fall precauitons in place.
[2020-01-02 16:00] VITALS: BP 147/72
[2020-01-02 19:25] VITALS: BP 127/72
--- NOTE | 2020-01-03 03:21 | NUR ---
PATIENT ALERT AND ORIENTED X4. PINEDA TO D/D WITH LIGHT SWETHA URINE. DENIES PAIN. COOPERATIVE WITH CARE. 02NC WITH NO SOA NOTED. RESTING QUIETLY. WILL MONITOR. POSSIBLE DISCHARGE TODAY TO HOME WITH SON.
[2020-01-03 03:37] VITALS: BP 153/77
[2020-01-03 05:45] LABS: HEMATOCRIT 31.4 % (37.0-47.0); HEMOGLOBIN 10.1 gm/dL (12.0-15.0); MCHC 32.1 g/dL (28.0-37.0); MCV 93.5 fL (80.0-100.0); RBC 3.36 mil/uL (4.20-5.00); RDW 16.8 % (10.5-14.5); WBC 5.2 thou/uL (4.0-11.0)
[2020-01-03 06:06] LABS: CALCIUM 8.7 mg/dL (8.5-10.1); CREATININE 0.6 mg/dL (0.6-1.0); POTASSIUM 3.7 mmol/L (3.5-5.1)
[2020-01-03 08:27] VITALS: BP 144/63
[2020-01-03] MEDS ORDERED: LASIX 40 MG TAB40 M2 PO (09:31)
[2020-01-03] MEDS ORDERED: PROTONIX40 M4 PO (09:32)
--- NOTE | 2020-01-03 13:35 | NUR ---
on-going assessment: NI REVIEWED CHART AND SPOKE WITH ATTENDING. SINCE INSURANCE HAS DENIED SNF PLAN IS HOME WITH [facility] TODAY. NI NOTIFIED [facility] OF DISCHARGE AND FAXED D/C INFORMATION AND CONFIRMED THEY RECEIVED IT. PT WILL DISCHARGE HOME WHERE SHE LIVES WITH HER SON FLAVIA. NI HAS WORKED WITH [facility] AND PT WILL HAVE [facility] BED DELIVERED PRIOR TO HER DISCHARGE. [facility] IS DELIVERING HER WHEELCHAIR TO THE HOSPITAL. NI SPOKE WITH SON FLAVIA AND [facility] IS TO DELIVER THE EQUIPMENT TO THE APT AND THEN HE WILL PROPERTY MANAGEMENT SUPERVISOR HIS MOTHER FOR DISCHARGE. NI NOTIFIED BEDSIDE RN.
[2020-01-03 15:49] VITALS: BP 152/77
[2020-01-03 17:49] VITALS: BP 146/75
[2020-01-03 18:14] VITALS: BP 146/75
--- NOTE | 2020-01-03 19:45 | NUR ---
Assumed care of pt. at 0700. Pt. was calm and cooperative. Pt. was excited to discharge. Pt. received approval for home medical appliances and was picked up at 1845. Pt. was given discharge teaching and paperwork information.
== END 2020-01-03 18:50 | disposition home or self-care (01) | DRG 871 ==
LOC: ER 23:27 → 4S 12-28 04:09 → EROBS 12-28 04:09 → 4S 12-28 22:12
PROVIDERS: Emergency Medicine; Hospitalist; ADMIT Internal Medicine; ATTEND Internal Medicine
PROC: 0W9B3ZZ Drainage of Left Pleural Cavity, Percutaneous Approach (ICD-10-PCS; principal; 2019-12-28)
DX: A41.9 Sepsis, unspecified organism (principal); J18.9 Pneumonia, unspecified organism; L89.323 Pressure ulcer of left buttock, stage 3; J96.21 Acute and chronic respiratory failure with hypoxia; E43 Unspecified severe protein-calorie malnutrition; K76.6 Portal hypertension; R18.8 Other ascites; J91.8 Pleural effusion in other conditions classified elsewhere; J98.11 Atelectasis; K74.60 Unspecified cirrhosis of liver; N63.0 Unspecified lump in unspecified breast; S81.802A Unspecified open wound, left lower leg, initial encounter; S81.801A Unspecified open wound, right lower leg, initial encounter; F03.90 Unspecified dementia, unspecified severity, without behavioral disturbance, psychotic disturbance, mood disturbance, and anxiety; I48.91 Unspecified atrial fibrillation; I10 Essential (primary) hypertension; E78.5 Hyperlipidemia, unspecified; I89.0 Lymphedema, not elsewhere classified; R13.10 Dysphagia, unspecified; D64.9 Anemia, unspecified; E11.621 Type 2 diabetes mellitus with foot ulcer; I87.8 Other specified disorders of veins; G47.00 Insomnia, unspecified; E87.6 Hypokalemia; S31.000A Unspecified open wound of lower back and pelvis without penetration into retroperitoneum, initial encounter; E83.42 Hypomagnesemia; E66.9 Obesity, unspecified; Z68.29 Body mass index [BMI] 29.0-29.9, adult; Z90.710 Acquired absence of both cervix and uterus; Z90.49 Acquired absence of other specified parts of digestive tract; Z88.8 Allergy status to other drugs, medicaments and biological substances; Z13.89 Encounter for screening for other disorder; Z83.3 Family history of diabetes mellitus; Z82.49 Family history of ischemic heart disease and other diseases of the circulatory system; Z74.01 Bed confinement status; X58.XXXA Exposure to other specified factors, initial encounter; Y93.89 Activity, other specified; Y92.89 Other specified places as the place of occurrence of the external cause; Y99.8 Other external cause status
CPT/HCPCS: 10195

== ENCOUNTER 2020-01-17 16:55 | Inpatient (IN) | payer OTHER ==
[~2020-01-17] VITALS: Ht 162.6 cm; Wt 64.9 kg
[~2020-01-17 16:55] MED LIST changes: +ACETAMINOPHEN325 M1 PO; +ASA81BEC PO; +ASCORBIC ACID500 MG PO; +LASIX 40 MG TAB40 M2 PO; +MILK OF MA400 MG/5 M PO; +NORCO 5-325 TA1 EAC2 PO; +OMEPRAZOLE 20 M20 M1 PO; +PROTONIX40 M4 PO
[2020-01-17 16:58] VITALS: BP 120/55
[2020-01-17 17:47] LABS: ABSOLUTE NEUTROPHILS 5.9 thou/uL (1.4-8.2); EOSINOPHILS 3.4 % (0.0-3.0); HEMATOCRIT 35.1 % (37.0-47.0); HEMOGLOBIN 11.1 gm/dL (12.0-15.0); MCH 29.4 pg (26.0-34.0); MCHC 31.5 g/dL (28.0-37.0); MCV 93.2 fL (80.0-100.0); MONOCYTES 9.5 % (1.0-8.0); PLATELET COUNT 264 thou/uL (150-400); POLYS 66.1 % (36.0-66.0); RBC 3.76 mil/uL (4.20-5.00); RDW 16.6 % (10.5-14.5)
[2020-01-17 18:03] LABS: CALCIUM 8.3 mg/dL (8.5-10.1); POTASSIUM 4.8 mmol/L (3.5-5.1)
[2020-01-17 18:07] LABS: ALBUMIN 2.3 g/dL (3.4-5.0); TOTAL BILIRUBIN 0.7 mg/dL (0.2-1.0); TOTAL PROTEIN 5.8 g/dL (6.4-8.2)
[2020-01-17 19:12] LABS: URINE BILIRUBIN 1+ (Negative); URINE BLOOD NEGATIVE (Negative); URINE CLARITY SL CLOUDY; URINE COLOR YELLOW; URINE GLUCOSE-RANDOM* NEGATIVE (Negative); URINE KETONES NEGATIVE (Negative); URINE NITRITE-REFLEX NEGATIVE (Negative); URINE PROTEIN (DIPSTICK) NEGATIVE (Negative); URINE SPECIFIC GRAVITY 1.025 (1.005-1.035); URINE UROBILINOGEN 0.2 E.U./dl (0.2-1.0)
[2020-01-17 19:15] LABS: URINE LEUKOCYTES-REFLEX 2+ (Negative)
[2020-01-17 19:20] LABS: CASTS None Seen /LPF (None Seen); CRYSTALS None Seen /LPF (None Seen); MUCUS 4-6 Moderate strn/LPF (None Seen); SQUAMOUS 4-10 Moderate /LPF (0-3); URINE RBC 0-2 Rare /HPF (0-2)
[2020-01-17 20:08] VITALS: BP 108/40
[2020-01-17] MEDS ORDERED: COREG6.25 MG PO (20:11)
[2020-01-17 20:19] VITALS: BP 102/41
[2020-01-17 23:50] VITALS: BP 119/47
--- NOTE | 2020-01-18 03:25 | NUR ---
PT NEW ADMIT YESTERDAY WITH INCREASED SOB AND DISTENDED ABDOMEN. PT IS USUALLY ON 2L 02 AT HOME BUT CURRENTLY ON 4L. ON ARRIVAL, PT REPORTSSOB TO HAVE SUBSIDED AND DENIES ANY CHEST PAIN OR ABDOMINAL PAIN. PT REPORTS TO BE RECENTLY BEDBOUND . PRESSURE SORES TO THE SACRUM AND ON THE RIGHT BUTTOCK. PICTURE TAKEN. SR ON THE MONITOR. VITALS STABLE. PT NPO SINCE MIDNIGHT. THORACENTHESIS THIS MORNING. WILL CONTINUE TO MONITOR AND FOLLOW POC.
[2020-01-18 03:28] VITALS: BP 117/36
[2020-01-18 04:06] LABS: CALCIUM 8.6 mg/dL (8.5-10.1); POTASSIUM 4.6 mmol/L (3.5-5.1)
[2020-01-18 04:37] LABS: HEMATOCRIT 35.2 % (37.0-47.0); HEMOGLOBIN 11.1 gm/dL (12.0-15.0); MCH 29.9 pg (26.0-34.0); MCHC 31.5 g/dL (28.0-37.0); RBC 3.71 mil/uL (4.20-5.00); WBC 9.7 thou/uL (4.0-11.0)
[2020-01-18 07:40] VITALS: BP 105/22
[2020-01-18 11:30] VITALS: BP 91/86
[2020-01-18 13:36] LABS: INR 1.1; PROTIME 11.2 Seconds (9.3-11.4)
--- NOTE | 2020-01-18 15:19 | NUR ---
Case opened to follow for dc planning. Pt admited from home for abd ascities and sob. Pt known to from multiple admissions in the past 6 months. She lives in an apt with her son Miguelito who is a nurse. He is her 24hr caregiver and is normally at bedside. Pt's dtr Katie lives close by and does help with some perosonal care. Call rec'd from [facility] indicating that they do not feel the pt's care needs are being met at home and that she likely needs to be in a ltc facility. They have hotlined [facility] due to clutter in the apt and inability to use the [employer] lift and dme due to "too much stuff". They report they have talked with the pt's son about this but they have not yet attempted to decrease the clutter. They are concerned about a fire hazard or EMS not being able to get into the apt to get to her in an emergency. Concerns discussed with pt's son Miguelito today and message left for dtr Katie. Care team and the attending updated. Consult for pallitive care also pending given the pt's increasing need for fluid removal. She is down getting tapped this afternoon. Pt's son Miguelito up set that [facility] did not coordinate with him to remove clutter before hotlining. He is adament that he will take care of the pt at home and that she is not going to a jail. He is open to the palliative care consult and discussion with the physicians regarding her plan of care and overall outlook. He does not work outside the home so he can be the pt's timers inspector vehicle care specialist. He reports he is a nurse and feels he can appropriately care for the pt with the help of his sister. Encouragement given for family to talk with the physicians this weekend. The pt was denied additional SNF days from [facility] recently (01/03/20) therefore she was dc'd home with a hospital bed, lift, w/c, and o2. Encouragement given for Miguelito to work with family members on clearing some of the storage items out of the apt to allow more room for caregivers and dme. Will follow to look for an alternative HH agency or hospice referral pending the plan of care.
[2020-01-18 15:35] VITALS: BP 105/81
--- NOTE | 2020-01-18 16:40 | NUR ---
PATIENT HAD US THORACENTESIS AND CT CHEST TESTS TODAY. SON HERE TO VISIT.
--- NOTE | 2020-01-18 17:14 | NUR ---
FAXED REFERRAL TO [facility] HH SPOKE WITH INTAKE THEY ARE OON WITH PT'S INSURANCE.
[2020-01-18 19:30] VITALS: BP 103/51
[2020-01-19 04:00] VITALS: BP 89/48
--- NOTE | 2020-01-19 05:12 | NUR ---
ASSUMED CARE AT 1900. PT ALERT AD ORIENTED. VITALS. STOMACH REMAINS DISTENDED. DENIES CHEST PAINS , NAUSEA OR VOMITING. Q2 TURNS TOLERATED. SR ON THE MONITOR. NO ANY EVENTS OVERNIGHT. WILL CONTINUE TO FOLLOW POC.
[2020-01-19 07:40] VITALS: BP 101/44
[2020-01-19 08:36] LABS: ABSOLUTE NEUTROPHILS 7.8 thou/uL (1.4-8.2); EOSINOPHILS 1.6 % (0.0-3.0); HEMOGLOBIN 10.8 gm/dL (12.0-15.0); LYMPHOCYTES 13.2 % (24.0-44.0); MCH 29.9 pg (26.0-34.0); MCHC 31.7 g/dL (28.0-37.0); MCV 94.4 fL (80.0-100.0); MONOCYTES 7.7 % (1.0-8.0); PLATELET COUNT 231 thou/uL (150-400); POLYS 76.5 % (36.0-66.0); RDW 16.3 % (10.5-14.5); WBC 10.3 thou/uL (4.0-11.0)
[2020-01-19 08:47] LABS: CALCIUM 7.8 mg/dL (8.5-10.1); CREATININE 1.9 mg/dL (0.6-1.0); MAGNESIUM 1.8 mg/dL (1.8-2.4); TOTAL BILIRUBIN 0.3 mg/dL (0.2-1.0); TOTAL PROTEIN 5.3 g/dL (6.4-8.2)
[2020-01-19 11:40] VITALS: BP 105/56
[2020-01-19 15:45] VITALS: BP 108/50
--- NOTE | 2020-01-19 16:04 | NUR ---
ASSESSMENT CHARTED - MEDS PER MAY - WAS ABLE TO GET PATIENT TO TAKE PILLS WHEN PLACED IN PUDDING. JOHN ONLY SMALL AMOUNTS OF DIET AND FLUIDS. PT WITH PAIN ONLY WHEN TURNED OTHERWISE NO CO'S OF PAIN. PT BOTTOM/ SACRUM WITH BREAKDOWN PRESENT - CREAM APPLIED EACH TIME PATIENT TURNED. SON INTO SEE PATIENT THIS AFTERNOON. NO CO'S AT THE PRESENT TIME. APPEARS TO BE RESTING COMFORTABLY.
[2020-01-19 19:30] VITALS: BP 119/59
[2020-01-20 03:20] VITALS: BP 115/56
--- NOTE | 2020-01-20 04:33 | NUR ---
CARE ASSUMED 1900. PT SLEEPY AND DROWSY. RELUCTANT TO TAKE ANYTHING ORAL. OO X 2. CONFUSED WITH REPEATATIVE EXPRESSIONS WHEN ASKED SOMETHING. DENIES PAIN. Q2 TURNS. O2 4L NC. NO OTHER CONCERNS WILL CONTINUE TO MONITOR.
[2020-01-20 04:51] LABS: ABSOLUTE NEUTROPHILS 7.8 thou/uL (1.4-8.2); BASOPHILS 1.4 % (0.0-2.0); EOSINOPHILS 2.4 % (0.0-3.0); HEMATOCRIT 36.4 % (37.0-47.0); HEMOGLOBIN 11.5 gm/dL (12.0-15.0); LYMPHOCYTES 16.7 % (24.0-44.0); MCHC 31.6 g/dL (28.0-37.0); MCV 95.1 fL (80.0-100.0); MONOCYTES 8.1 % (1.0-8.0); PLATELET COUNT 237 thou/uL (150-400); POLYS 71.4 % (36.0-66.0); RBC 3.82 mil/uL (4.20-5.00); RDW 16.8 % (10.5-14.5); WBC 10.9 thou/uL (4.0-11.0)
[2020-01-20 05:51] LABS: CALCIUM 8.4 mg/dL (8.5-10.1); CREATININE 1.6 mg/dL (0.6-1.0); MAGNESIUM 1.8 mg/dL (1.8-2.4); PHOSPHORUS 4.7 mg/dL (2.5-4.9); POTASSIUM 5.1 mmol/L (3.5-5.1)
[2020-01-20 08:11] VITALS: BP 105/58
[2020-01-20 11:00] VITALS: BP 108/57
[2020-01-20 12:20] LABS: HCO3 31.3 mmol/L (22.0-26.0); PO2 58.4 mmHg (80.0-100.0); sO2 84.3 % (92.0-98.0)
[2020-01-20 12:21] LABS: PCO2 74.8 mmHg (35.0-45.0); pH 7.239 (7.360-7.450)
[2020-01-20 13:52] LABS: URINE BILIRUBIN 1+ (Negative); URINE BLOOD 1+ (Negative); URINE CLARITY CLOUDY; URINE COLOR YELLOW; URINE GLUCOSE-RANDOM* NEGATIVE (Negative); URINE KETONES NEGATIVE (Negative); URINE NITRITE-REFLEX NEGATIVE (Negative); URINE PROTEIN (DIPSTICK) NEGATIVE (Negative); URINE SPECIFIC GRAVITY >= 1.030 (1.005-1.035); URINE UROBILINOGEN 0.2 E.U./dl (0.2-1.0)
[2020-01-20 13:55] LABS: ICTOTEST (BILI CONFIRMATORY) Negative (Negative); URINE LEUKOCYTES-REFLEX 2+ (Negative)
[2020-01-20 14:19] LABS: URINE WBC-REFLEX >25 Many /HPF (0-5)
[2020-01-20 14:20] LABS: BACTERIA-REFLEX >30 Many /HPF (None Seen); CASTS None Seen /LPF (None Seen); CRYSTALS None Seen /LPF (None Seen); SQUAMOUS 4-10 Moderate /LPF (0-3)
--- NOTE | 2020-01-20 16:34 | NUR ---
ASSESSMENT CHARTED - DOCTOR IN TO SEE PATIENT, PATIENT STATED SHE COULD NOT BREATH - FACE SHIELD PLACED ON PATIENT -PT HAS HAD LABOURED BREATHING. PINEDA CATH PLACED ORDERED. STOOL AND UA TO LAB. ANTIBIOTIC ORDERED AND GIVEN IN, PT WITH ABG'S DRAWN AND PT THEN PLACED ON BIPAP @ 40%. RESPS MUCH LESS LABOURED AND PATIENT RESTING COMFORTABLY - ABDO WITH PAIN EACH TIME PATIENT MOVED - SONOGRAM OF ABDO COMPLETED. MEDS PER MAY - PT WITH NO PO INTAKE THIS SHIFT - DR AWARE OF NO INTAKE. SON AT THE BEDSIDE THIS AFTERNOON. APPEARS TO BE RESTING COMFORTABLY AT THE PRESENT TIME.
[2020-01-20 20:30] VITALS: BP 141/56
[2020-01-20 22:08] LABS: HEMATOCRIT 34.5 % (37.0-47.0)
--- NOTE | 2020-01-21 04:29 | NUR ---
PT LYING IN BED. NO SIGNS-SYMPTOMS OF PAIN. RESTING COMFORTABLY. FREQUENT OBSERVATION.
[2020-01-21 05:58] VITALS: BP 131/66
[2020-01-21 06:09] LABS: ABSOLUTE NEUTROPHILS 5.4 thou/uL (1.4-8.2); BASOPHILS 0.5 % (0.0-2.0); EOSINOPHILS 3.8 % (0.0-3.0); HEMATOCRIT 30.9 % (37.0-47.0); HEMOGLOBIN 10.2 gm/dL (12.0-15.0); LYMPHOCYTES 19.3 % (24.0-44.0); MCH 30.6 pg (26.0-34.0); MCHC 33.2 g/dL (28.0-37.0); MCV 92.2 fL (80.0-100.0); MONOCYTES 9.2 % (1.0-8.0); PLATELET COUNT 190 thou/uL (150-400); POLYS 67.2 % (36.0-66.0); RBC 3.35 mil/uL (4.20-5.00); RDW 15.8 % (10.5-14.5); WBC 8.1 thou/uL (4.0-11.0)
[2020-01-21 06:23] LABS: CALCIUM 7.8 mg/dL (8.5-10.1); CREATININE 1.5 mg/dL (0.6-1.0); MAGNESIUM 1.7 mg/dL (1.8-2.4); PHOSPHORUS 3.5 mg/dL (2.5-4.9); POTASSIUM 4.4 mmol/L (3.5-5.1)
[2020-01-21 07:40] VITALS: BP 128/49
--- NOTE | 2020-01-21 10:23 | NUR ---
PT UNABLE TO TAKE PO MEDICATIONS D/T MENTAL STATUS, MEDS HELD
[2020-01-21 11:05] VITALS: BP 146/75
--- NOTE | 2020-01-21 14:51 | NUR ---
Chart reviewed, pt will be comfort care measures. Defer any nutrition assessment at this time
--- NOTE | 2020-01-21 17:16 | NUR ---
Dr Mathias consult today. Sp with family. [facility] allowing visits from family intermittantly 2 at a time. patient cont on BIPAP. Family wanting to determine how patient does on BIPAP and cont with diuresis. They want to determine if fluid can be decreased for breathing improvement. Discussed hospice family may be interested but want to determine this outcome first. Updated RN.
--- NOTE | 2020-01-21 18:13 | NUR ---
PT SON STATED THAT HE WOULD LIKE TO SEE IF PLEUREX CATH COULD BE PUT IN AND AGGRESSIVE DIURESIS BEFORE TAKING OFF BIPAP. SON WOULD LIKE PT TO REMAIN ON BIPAP UNTIL POSSIBLY EVEN TUESDAY. SON VERY WORRIED THAT PT MIGHT DROWN TO IF NOT DIURESED PROPERLY PRIOR TO FULL COMFORT MEASURES. PT FAMILY ALL CAME UP AND VISITED WITH FAMILY. PT SON TOLD MOTHER MANY TIMES THAT SHE COULD GO WHENEVER SHE WANTED. DISCUSSED POTENTIAL FOR HOSPICE HOUSE OR IN HOME HOSPICE WITH PT SON HE IS CONCERNED WITH VISITOR POLICY FOR END OF LIFE CARE HERE AT THE HOSPITAL. VERY IN DEPTH EDUCATION MULTIPLE TIMES NEEDED FOR FAMILY. PRN MORPHINE AND ATIVAN ORDERED
[2020-01-21 19:59] VITALS: BP 110/52
--- NOTE | 2020-01-22 02:37 | NUR ---
ASSUMED CARE OF PATIENT AT 1900. PATIENT ON COMFORT CARE. PATIENT ATTEMPTED TO REMOVE BIPAP MULTIPLE TIMES THROUGHOUT NIGHT WELL DISCONNECT TUBING. ADMINISTERED PRN MEDS ORDERED FOR PAIN/AGITATION.
[2020-01-22 04:46] VITALS: BP 107/48
[2020-01-22 07:30] VITALS: BP 114/51
[2020-01-22 11:20] VITALS: BP 117/65
[2020-01-22 15:20] VITALS: BP 110/51
--- NOTE | 2020-01-22 15:25 | NUR ---
ON THE BIPAP ALL DAY, VITALS STABLE. ORIENTED TO PERSON AND FOLLOWS SOME COMMANDS, CONFUSED AND IMPULSIVE AT TIMES AND TRIES TO TAKE OFF BIPAP. SON AT THE BEDSIDE THIS AFTERNOON AND TALKING WITH DR. HENLEY. DURING MANANGER ROUNDS, SON STATED TO GALILEA THAT FAMILY HAS NOT BEEN GETTING CONSITENT INFORMATION FROM PHYSICIANS. CALL PLACED TO DR. ROMO'S OFFICE AND DR. ROMO CALLED BACK AND IS NOW TALKING TO PATIENT'S SON OVER THE PHONE. WILL CONTINUE WITH CURRENT POC UNTIL FURTHER ORDERS.
--- NOTE | 2020-01-22 18:07 | NUR ---
Dr Mathias and Dr Echols sp with son at bedside. Dr Mathias reports patient now at nasal cannula and family interested in hospice house eval. Sp with son reviewed hospice house locations. They are interested in [facility]. Sent referral they report they do have bed avail tonight. Educated son if they eval they will expect to transfer to bed. Son put sister on speaker who reports that was not the plan they understood. Report they believed Dr Mathias to eval tomorrow regarding. changes in medical management from today. Reported to family they can eval at the hospice house but family wants Dr Mathias to update them tomorrow. Updated Dr Mathias and cancelled eval.
--- NOTE | 2020-01-23 02:27 | NUR ---
ASSUMED CARE OF PATIENT AT 1900. PATIENT ON COMFORT CARES. BIPAP DC'd. PATIENT ON 6L OF OXYGEN VIA NASAL CANNULA WITH OXYGEN SATURATION AT 90%. PATIENT CURRENTLY RESTING COMFORTABLY.
[2020-01-23 09:15] VITALS: BP 91/35
[2020-01-23 15:41] VITALS: BP 100/62
[2020-01-23 17:09] VITALS: BP 100/62
--- NOTE | 2020-01-23 17:23 | NUR ---
Dr Mathias and brent met with son. Due to only 4 visitors at a time family has chose to dc home with hospice. Hospice did informational meeting today. They plan to sp with son to coordinate the dc home with home and delivary of equiptment. Son put dtr on speaker phone to alert of dc tomorrow and in agreement. [facility] has arranged for home admit time of 1700
--- NOTE | 2020-01-23 17:30 | NUR ---
ASSUMED CARE PT SHIFT CHANGE. ASSESSMENTS CHARTED.MEDS GIVEN PER MAY. PT DISORIENTED MOST TIMES. SLEPT COMFORTABLY THROUGHOUT DAY. SON AT BEDSIDE. HOSPICE HOUSE EVALUATED PT, FAMILY STATES WANTS PT TO GO HOME WITH HOSPICE. CASE MGMNT AWARE AND ARRANGING. Q2 TURNS ENFORCED. COMFORT CARES CONTINUE. PT IN NO APPARENT DISTRESS AT THIS TIME. WILL CONT TO MONITOR WHILE FOLLOWING POC.
[2020-01-23 20:17] VITALS: BP 110/76
--- NOTE | 2020-01-24 02:34 | NUR ---
ASSUMED CARE OF PATIENT AT 1900. VSS. COMFORT CARE. ROUNDED ON FREQUENTLY. DENIES PAIN. NOT PROGRESSING TOWARDS POC GOALS.
[2020-01-24 08:00] VITALS: BP 72/39
--- NOTE | 2020-01-24 10:38 | NUR ---
PT CARE ASSUMED AT 0700. LETHARGIC AND SLEEPY BUT AROUSABLE WHEN STATING PT NAME VERY LOUDLY. PT ON 6L CURRENTLY. PENDING DISCAHRGE TODAY HOME WITH SON AND HOSPICE. PINEDA IN PLACE WITH MINIMAL OUTPUT, 50CC OVER NIGHT. NO IV PRESENT. COMFORT CARE IN PLACE. FALL PROTOCOL IN PLACE. CALL LIGHT IN REACH. LUNGS DIMINISHED AND COARSE. MOUTH MOISTEND WITH SWABS AND CHAP STICK USED. WILL CONTINUE TO MONITOR. AWAITING TIME FOR TRANSPORT AND DISCAHRGE.
[2020-01-24 12:54] VITALS: BP 100/62
[2020-01-24 13:33] VITALS: BP 100/62
--- NOTE | 2020-01-24 14:03 | NUR ---
Patient to dc home with hospice. Faxed orders to [facility]. director industrial relations to meet with family at home and admit at 1700. Equiptment delivered this am. Sp with son Miguelito verified address. Gave verbal consent for outside DNR. Sp with Hospice to alert patient was Hotlined by Home Health agency and they are aware. [facility] for 1600. Notified RN. Packet with orders and DNR form to home with prescription card from hospice.
== END 2020-01-24 15:40 | DRG 189 ==
LOC: ER 16:55 → EROBS 19:20 → 2N 19:20
PROVIDERS: Internal Medicine; Nurse Practitioner Family; Physician Assistant; ADMIT Internal Medicine; ATTEND Internal Medicine
PROC: 0W9B3ZZ Drainage of Left Pleural Cavity, Percutaneous Approach (ICD-10-PCS; principal; 2020-01-18)
PROC: 5A09457 Assistance with Respiratory Ventilation, 24-96 Consecutive Hours, Continuous Positive Airway Pressure (ICD-10-PCS; 2020-01-20)
DX: J96.21 Acute and chronic respiratory failure with hypoxia (principal); L89.153 Pressure ulcer of sacral region, stage 3; G93.41 Metabolic encephalopathy; E43 Unspecified severe protein-calorie malnutrition; R18.8 Other ascites; N39.0 Urinary tract infection, site not specified; K76.6 Portal hypertension; I48.20 Chronic atrial fibrillation, unspecified; Z20.828 Contact with and (suspected) exposure to other viral communicable diseases; I10 Essential (primary) hypertension; E11.9 Type 2 diabetes mellitus without complications; E78.5 Hyperlipidemia, unspecified; F03.90 Unspecified dementia, unspecified severity, without behavioral disturbance, psychotic disturbance, mood disturbance, and anxiety; G47.00 Insomnia, unspecified; K74.60 Unspecified cirrhosis of liver; D64.9 Anemia, unspecified; I89.0 Lymphedema, not elsewhere classified; R63.4 Abnormal weight loss; Z51.5 Encounter for palliative care; N63.0 Unspecified lump in unspecified breast; J96.22 Acute and chronic respiratory failure with hypercapnia; Z66 Do not resuscitate; J44.9 Chronic obstructive pulmonary disease, unspecified; Z90.710 Acquired absence of both cervix and uterus; Z90.49 Acquired absence of other specified parts of digestive tract; Z88.8 Allergy status to other drugs, medicaments and biological substances; Z79.82 Long term (current) use of aspirin; Z79.899 Other long term (current) drug therapy; Z68.24 Body mass index [BMI] 24.0-24.9, adult
CPT/HCPCS: 10081; 10797